=== PATIENT | female | born 2000 | race Caucasian/White ===

== ENCOUNTER 2022-05-05 15:56 | Outpatient (CLI) | payer BC, SELFPAY ==
[2022-05-05 20:27] LABS: Albumin* 5.3 g/dL (3.3-5.0); Chloride* 103 mmol/L (96-114); Sodium* 137 mmol/L (135-149)
[2022-05-05 20:29] LABS: Bilirubin Total* 0.6 mg/dL (0.1-1.5); Carbon Dioxide* 25 mmol/L (20-32); Creatinine* 0.8 mg/dL (0.6-1.2); Estimated Glomerular Filt Rate 108.78
[2022-05-05 20:30] LABS: Alanine Aminotransferase* 17 U/L (4-35); Alkaline Phosphatase* 61 U/L (40-150); Aspartate Amino Transferase* 24 U/L (12-35); Blood Urea Nitrogen* 8 mg/dL (5-24); Glucose* 98 mg/dL (60-115); Total Protein* 8.2 g/dL (6.0-8.3)
--- OUTSIDE RECORDS SUMMARY | 2022-06-02 10:06 | XMS_ITS | Encounter Summary ---
:2000 Author Organization [place] Address [address] [place] [address] Care Team Providers Name Role Phone Brown Sung PA-C Primary Care Provider [phone] Reason for Visit [facility] Physical Therapy (Routine) - Closed Specialty Diagnoses / Procedures Referred By Contact Refer red To Contact Physical Therapy Diagnoses R Hip, Groin area / [place] Slater DO @ [facility] Georgia Slater DO [place], Roderick, Procedures EXTREMITY INITIAL [facility] F[facility]IA T[place] [address] [facility] [address] [address] [facility] [place] [address] [place] [id number] Referral ID Status Reason Start Date Expiration Date Visits V isits Requested Authorized FOUZIA/BC/HIP/KEARA Closed 10/15/2017 10/24/2017 25 23 IN Encounter Details Date Type Department Care Team Description 10/15/2017 Therapy Visit [facility], Hip pain, rig Athletic Medicine Demetrio, PT (Primary Dx) Tin FOUZIA GARCIA [address] [place] [id number] [place] [id number] Social History Tobacco Use Types Packs/Day Years Used Date Never Smoker Smokeless Tobacco: Never Used Alcohol Use Standard Drinks/Week Comments No 0 (1 standard drink = 0.6 oz pure alcoho l) Sex Assigned at Date Recorded Not on file documented as of this encounter Progress Notes Demetrio Acevedo, PT - 10/15/2017 11:50 AM CST [facility] Evaluation Subjective: Patient is a 17 year old female presenting with rehab right hip hpi. The history is provided by the patient and the father. No spanish interpreter/translator was used. Nikkie Broussard is a 17 year old female with a right hip condition. Condition occurred with: A fall/slip (pt with R hip pain started about 1 month ago, groin pain started 2 weeks ago. Pain has progressed and now taking some time off. 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 pt reports no injury last year and [employer] training no issues). Condition occurred: during recreation/sport. This is a new condition Aug 2017 . Patient reports pain: Anterior, lateral and groin. Pain is described as aching and sharp and is intermittent and reported as 4/10 and 7/10. Associated symptoms: Loss of strength. Pain is the same all the time. Symptoms are exacerbated by standing, walking, ascending stairs, descending stairs, transfers and bending/squatting and relieved by rest, heat and NSAID's. Since onset symptoms are unchanged. Special tests: X-ray. General health as reported by patient is good. Pertinent medical history includes: None. Medical allergies: no. Other surgeries include: None reported. Current medications: None as r eported by the patient. 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 Barriers include: None as reported by the patient. Red flags: None as reported by the patient. Objective: Standing Alignment: Lumbar: Lordosis incr Hip Evaluation Hip PROM: Hip PROM: Left Hip: Normal Right Hip: Normal Pain: pain with R hip IR PROM Hip Strength: Flexion: Left: 5/5 Pain: Right: 5/5 Pain: Abduction: Left: 5-/5 Pain:Right: 4/5 + Pain: Internal Rotation: Left: 5-/5 Pain:Right: 4+/5 Pain: External Rotation: Left: 5-/5 Pain: Right: 4+/5 Pain: Knee Flexion: Right: 5/5 Pain: Hip Special Testing: Special tests hip not assessed: + pain R hip log roll. Left hip negative for the following special tests: Igor; Fadir/Labrum or SLR Right hip positive for the following special tests: Fadir/LabrumRight hip negative for the following special tests: Igor or SLR Functional Testing: not assessed General ROS Assessment/Plan: Patient is a 17 year old female with right side hip complaints. Patient has the following significant findings with corresponding treatment plan. Diagnosis 1: R hip pain, pain with FADIR, log roll possible ARLEEN Pain - hot/cold therapy, self management, education and home program Decreased strength - therapeutic exercise and therapeutic activities Impaired balance - neuro re-education and therapeutic activities Decreased proprioception - neuro re-education and therapeutic activities Inflammation - cold therapy Impaired gait - gait training Decreased function - therapeutic activities Therapy Evaluation Codes: 1) History comprised of: Personal factors that impact the plan of care: None. Comorbidity factors that impact the plan of care are: None. Medications impacting care: None. 2) Examination of Body Systems comprised of: Body structures and functions that impact the plan of care: Hip. Activity limitations that impact the plan of care are: Jumping, Lifting, Running, Sports, Squatting/kneeling, Standing and Walking. 3) Clinical presentation characteristics are: Stable/Uncomplicated. 4) Decision-Making Low complexity using standardized patient assessment instrument and/or measureable assessment of functional outcome. Cumulative Therapy Evaluation is: Low complexity. Previous and current functional limitations: (See Goal Flow Sheet for this information) Short term and intermission coordinator goals: (See Goal Flow Sheet for this information) Communication ability: Patient appears to be able to clearly communicate and understand verbal and written communication and follow directions correctly. Treatment Explanation - The following has been discussed with the patient: RX ordered/plan of care Anticipated outcomes Possible risks and side effects This patient would benefit from PT intervention to resume normal activities. Rehab potential is good. Frequency: 1 X week, once daily Duration: for 6-8 weeks Discharge Plan: Achieve all LTG. Independent in home treatment program. Reach maximal therapeutic benefit. Please refer to the daily flowsheet for treatment today, total treatment time and time spent performing 1:1 timed codes. H UNIT TREATER documented in this encounter Plan of Treatment Not on filedocumented as of this encounter Procedures Procedure Name Priority Date/Time Associated Diagnosis Comme nts [facility] NEUROMUSCULAR Routine 10/15/2017 2:15 PM Hip pain, right RE-EDUCATION BATCH UNIT TREATER [facility] THERAPEUTIC EXERCISES Routine 10/15/2017 2:15 PM Hip pain, right BATCH UNIT TREATER documented in this encounter Visit Diagnoses Diagnosis Hip pain, right - Primary Pain in joint, pelvic region and thigh documented in this encounter Care Teams Healthcare Facility Administrator Relationship Specialty Start Date End Date Brown Sung, PCP - General Physician Sand Mill Operator - 12/26/15 05/19/21 PA-C Medical documented as of this encounter
--- OUTSIDE RECORDS SUMMARY | 2022-06-02 10:06 | XMS_ITS | Encounter Summary ---
:2000 Author Organization [place] Address [address] [place] [address]. [place] [address] Care Team Providers Name Role Phone Brown Sung PA-C Primary Care Provider [phone] Reason for Referral [facility] Physical Therapy - Closed Specialty Diagnoses / Procedures Referred By Contact Refer red To Contact Diagnoses Groin strain, right, initial encounter Pain in joint involving right pelvic region and thigh [place] Slater DO [facility] [address] [place] [id number] [place] [address] [address] [address] [place] [address] Phone: [phone] Referral ID Status Reason Start Date Expiration Date Visits Requ ested Visits Authorized [id number] Closed 10/12/2017 10/12/2018 1 1 RITY BUSINESS ANALYST Reason for Visit Reason Comments Hip Pain Encounter Details Date Type Department Care Team Description 10/12/2017 Office Visit [facility] [place] Georgia Slater Pa in in joint involving right pelvic region and thigh (Primary Dx); Sports Medicine DO Groin strain, right, initial encounter; Clinic [facility] Strain of flexor muscle of r ight hip, initial encounter [id number] [facility] [address] [address] [place] [address] [place] [address] [place], [place] [address] (Wo rk) Social History Tobacco Use Types Packs/Day Years Used Date Never Smoker Smokeless Tobacco: Never Used Alcohol Use Standard Drinks/Week Comments No 0 (1 standard drink = 0.6 oz pure alcoho l) Sex Assigned at Date Recorded Not on file documented as of this encounter Last Filed Vital Signs Vital Sign Reading Time Taken Comments Blood Pressure 110/70 10/12/2017 12:02 PM SECURITY BUSINESS ANALYST Pulse - - Temperature - - Respiratory Rate - - Oxygen Saturation - - Inhaled Oxygen Concentration - - Weight 49.9 kg (110 lb) 10/12/2017 12:02 PM SECURITY BUSINESS ANALYST Height 162.6 cm (5' 4) 10/12/2017 12:02 PM SECURITY BUSINESS ANALYST Body Mass Index 18.88 10/12/2017 12:02 PM SECURITY BUSINESS ANALYST Body Mass Index Percentile 34.32 % 10/12/2017 12:[address] Growth Chart: [facility] (Girls, 2-20 Years) documented in this encounter Patient Instructions Patient InstructionsGeorgia Slater DO - 10/12/2017 12:00 PM CST 1. Pain in joint involving right pelvic region and thigh 2. Groin strain, right, initial encounter 3. Strain of flexor muscle of right hip, initial encounter Discussed exam - pain over hip flexors and groin Recommend at least 1-2 weeks off the ice Reviewed xray - no acute bony findings Physical therapy: [facility] - [phone] Follow up through [facility] after 2-3 PT sessions or sooner if needed. Call direct clinic number [[phone]] at any time with questions or concerns. RITY BUSINESS ANALYST documented in this encounter Progress Notes Georgia Slater DO - 10/12/2017 12:00 PM CST ASSESSMENT & PLAN 1. Pain in joint involving right pelvic region and thigh 2. Groin strain, right, initial encounter 3. Strain of flexor muscle of right hip, initial encounter Discussed exam - pain over hip flexors and groin Recommend at least 1-2 weeks off the ice Reviewed xray - no acute bony findings Physical therapy: [facility] - [phone] Follow up through [facility] after 2-3 PT sessions or sooner if needed. Call direct clinic number [[phone]] at any time with questions or concerns. ----- SUBJECTIVE Nikkie Broussard is a/an 17 year old female who is seen due to the [facility]. The patient is seen with their father. Onset: 2 month(s) ago in the right lateral hip and has spread into the right groin in the past couple weeks.. Reports insidious onset without acute precipitating event. 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 REVIEW OF SYSTEMS: 10 point ROS is negative other than symptoms noted above in HPI, Past Medical History or as stated below Constitutional: NEGATIVE for fever, chills, change in weight Skin: NEGATIVE for worrisome rashes, moles or lesions GI/: NEGATIVE for bowel or bladder changes Neuro: NEGATIVE for weakness, dizziness or paresthesias OBJECTIVE: BP 110/70 Ht 5' 4 (1.626 m) Wt 110 lb (49.9 kg) BMI 18.88 kg/m2 General: healthy, alert and in no distress HEENT: no scleral icterus or conjunctival erythema Skin: no suspicious lesions or rash. No jaundice. CV: no pedal edema Resp: normal respiratory effort without conversational dyspnea Psych: normal mood and affect Gait: normal steady gait with appropriate coordination and balance Neuro: Normal light sensory exam of lower extremity MSK: RIGHT HIP Inspection: No obvious deformity or asymmetry, level pelvis Palpation: Tender about the ASIS and rectus origin, adductor, pubic symphysis. Otherwise all other landmarks are nontender. Active Range of Motion: Flexion limited by pain, IR limited by pain, ER full Strength: Flexion 5/5, painful, adduction 5/5, painful, abduction 5/5, painful Special Tests: Positive: resisted testing of rectus, psoas and adductor. Mild discomfort with testing pubic symphysis aponeurosis Independent visualization of the below image: XR RIGHT HIP No bony avulsions off ASIS/AIIS. No CAM/pincer lesions No signs of osteitis pubis Final radiology read pending Patient's condition were thoroughly discussed during today's visit with greater than 50% of the visit spent counseling the patient with total time spent [id number] with the patient being 20 minutes. Georgia Slater DO [facility] RITY BUSINESS ANALYST documented in this encounter Plan of Treatment Scheduled Referrals Name Type Priority Associated Diagnoses Order S chedule F[facility] PT, HAND, AND Referral Routine Groin strain, right, Or dered: 10/12/2017 CHIROPRACTIC REFERRAL initial en counter Pain in joint involving right pelvic region and thigh documented as of this encounter Results XR Pelvis and Hip Right 2 Views (10/12/2017 12:34 PM SECURITY BUSINESS ANALYST) Anatomical Region Laterality Modality Abdomen/Pelvis Right Computed Radiography Specimen (Source) Anatomical Location Collection Method / Collectio n Time Received Time / Laterality Volume Impressions 10/12/2017 3:44 PM SECURITY BUSINESS ANALYST IMPRESSION: Negative exam. JACKELIN MONTEIRO MD Narrative 10/12/2017 3:44 PM SECURITY BUSINESS ANALYST XR PELVIS AND HIP RIGHT 2 VIEWS 10/12/2017 12:34 PM HISTORY: ; Pain in joint involving right pelvic region and thigh Procedure Note Izaiah Monteiro MD - 10/12/2017Formatt ing of this note might be different from the original. XR PELVIS AND HIP RIGHT 2 VIEWS 10/12/20 17 12:34 PM HISTORY: ; Pain in joint involving right pelvic region and thigh IMPRESSION: Negative exam. JACKELIN MONTEIRO MD Georgia Slater DO [facility] ORDER SUZI documented in this encounter Visit Diagnoses Diagnosis Pain in joint involving right pelvic reg ion and thigh - Primary Groin strain, right, initial encounter Strain of flexor muscle of right hip, in itial encounter Pain in joint involving right pelvic reg ion and thigh documented in this encounter Care Teams Branch Lead Relationship Specialty Start Date End Date Brown Sung, PCP - General Physician Apprentice Jockey - 12/26/15 05/19/21 PAJossC Medical documented as of this encounter
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
--- OUTSIDE RECORDS SUMMARY | 2022-06-02 10:06 | XMS_ITS | Encounter Summary ---
:2000 Author Organization [facility] Address [address] [place] [address] Care Team Providers Name Role Phone Brown Sung PA-C Primary Care Provider [phone] Encounter Details Date Type Department Care Team Description 02/15/2017 Radiant Appointment [facility] [place] Slater losed fracture of Sports and Marilu, DO radius Orthopedic Care [facility]TS [facility] [address] [place] [id number] Social History Tobacco Use Types Packs/Day Years Used Date Never Smoker Smokeless Tobacco: Never Used Alcohol Use Standard Drinks/Week Comments No 0 (1 standard drink = 0.6 oz pure alcoho l) Sex Assigned at Date Recorded Not on file documented as of this encounter Plan of Treatment Not on filedocumented as of this encounter Procedures Procedure Name Priority Date/Time Associated Diagnosis Comme nts XR WRIST RT G/E 3 Routine 02/15/2017 9:57 AM Closed fracture o f Results for this VW CDT radius procedure are i n the results section. documented in this encounter Results XR Wrist Right G/E 3 Views (02/15/2017 9:57 AM CDT) Anatomical Region Laterality Modality Right Wrist Right Computed Radiography Specimen (Source) Anatomical Location Collection Method / Collectio n Time Received Time / Laterality Volume Impressions 02/15/2017 10:10 AM CDT IMPRESSION: There has been no change in position or alignment of the previously seen nondisplaced fracture of the distal radial metaphysis. There has been increase in sclerosis adj acent to the fracture line consistent with early stages of healing. Solid bone bridging has not yet occurred. No other change or abnorma lity is noted. CHRISTOPHER ZARAGOZA MD Narrative 02/15/2017 10:10 AM CDT RIGHT WRIST THREE VIEWS ?? 02/15/2017 9:57 AM HISTORY: Fracture follow-up. COMPARISON: 02/01/2017. Procedure Note Christopher Zaragoza MD - 02/15/2017Fo rmatting of this note might be different from the original. RIGHT WRIST THREE VIEWS 02/15/2017 9:57 A M HISTORY: Fracture follow-up. COMPARISON: 02/01/2017. IMPRESSION: There has been no change in position or alignment of the previously seen nondisplaced fracture of the distal radial metaphysis. There has been increase in sclerosis adj acent to the fracture line consistent with early stages of healing. Solid bone bridging has not yet occurred. No other change or abnorma lity is noted. CHRISTOPHER ZARAGOZA MD [place] Slater DO [facility] SUZI documented in this encounter Visit Diagnoses Diagnosis Closed fracture of radius Closed fracture of unspecified part of r adius (alone) documented in this encounter Care Teams Nipple Threader Relationship Specialty Start Date End Date Brown Sung, PCP - General Physician Clarification Operator - 12/26/15 05/19/21 PA-C Medical documented as of this encounter
--- OUTSIDE RECORDS SUMMARY | 2022-06-02 10:06 | XMS_ITS | Encounter Summary ---
:2002 Author Organization [facility] Address [address] [place] [address] Care Team Providers Name Role Phone Brown Sung PA-C Primary Care Provider [phone] Reason for Visit Reason Comments RECHECK R distal radius fx Encounter Details Date Type Department Care Team Description 03/01/2017 Office Visit [facility] Carrillo Guerin Closed tra [facility] DO Wes nondisplaced [place] [address] metaphyseal torus [address] [place], [place] fracture of distal end [phone] [place] [address] routine healing [phone] (Primary Dx) Social History Tobacco Use Types Packs/Day Years Used Date Never Smoker Smokeless Tobacco: Never Used Alcohol Use Standard Drinks/Week Comments No 0 (1 standard drink = 0.6 oz pure alcoho l) Sex Assigned at Date Recorded Not on file documented as of this encounter Last Filed Vital Signs Vital Sign Reading Time Taken Comments Blood Pressure - - Pulse - - Temperature - - Respiratory Rate - - Oxygen Saturation - - Inhaled Oxygen Concentration - - Weight 49.9 kg (110 lb) 03/01/2017 9:51 AM CDT Height 160 cm (5' 3) 03/01/2017 9:51 AM CDT Body Mass Index 19.49 03/01/2017 9:51 AM CDT Body Mass Index Percentile 47.89 % 03/01/2017 9:51 AM CD T Growth Chart: [facility] (Girls, 2-20 Years) documented in this encounter Patient Instructions Patient InstructionsCarrillo Guerin DO - 03/01/2017 9:40 AM CDT We addressed the following today: 1. Right distal radius fracture Activity modification as discussed Topical Treatments: Ice Over the counter medication: Acetaminophen (Tylenol) 1000 mg every 6 hours with food (Maximum of 3000 mg/day) Other specific instructions: Discontinue short arm cast and begin use of EXOS brace with hockey/track and field activities for an additional 2-4 weeks for further treatment purposes Recommend 600-800 international units (IU)/day of vitamin D and 8286-4068 milligrams (mg)/day of calcium for improvement of bone health Call in 4 weeks if no improvement of symptoms for formal hand therapy referral Follow up as needed for further evaluation/medical care (sooner if needed; call direct clinic number[[phone]] at any time with questions or concerns) documented in this encounter Progress Notes Carrillo Guerin DO - 03/01/2017 9:40 AM CDT [facility] Visit s March 01, 2017 Subjective: Nikkie Broussard is a 16 year old female is seen today for follow up of a right distal radius fracture. Patient is accompanied in clinic today by her father. Injury occurred on 01/31/2017 (4 weeks ago). Lastvisit was on 02/15/2017. Has been in a short arm cast for treatment purposes. Returned to hockey and had a fall on her right wrist on 02/23/2017 and reported having 7/10 pain that lasted for about 1 day. Hasn't been back to hockey since that fall and reports having no pain in the wrist today (80% improved overall). Has not been using any oral pain medications consistently for improvement of symptoms. Symptoms are worse with nothing in particular. Denies any numbness/tingling/weakness of the right upper extremity. Patient's past medical, surgical, social, and family histories are reviewed today in the medical record Objective: Ht 5' 3 (1.6 m) Wt 110 lb (49.9 kg) BMI 19.49 kg/m2 General: Well-appearing and in no acute distress Skin: No evidence of skin breakdown, compromise, or ulceration NVS: Regional pulses normal. Normal sensation noted. No limitations noted on strength testing MSK: RIGHT WRIST Inspection: No swelling, bruising, discoloration, or obvious deformity or asymmetry Palpation: No tenderness over the distal radius or distal ulna Range of Motion: Flexion within normal limits and extension limited by tightness Strength: Magneto Electrician strength within normal limits, flexion within normal limits, and extension within normal limits Special Tests: Positive: None Negative: None Imaging: Previous films were reviewed today, independent visualization of images was performed, and results were discussed with the patient Right wrist x-rays (3 views) were ordered, independent visualization of images was performed, and interpreted in the office today Impression: 1. Continued nondisplaced fracture noted of the distal radial metaphysis with interval healing notedcompared to previous radiographs. 2. Negative for additional fracture, subluxation, joint space narrowing, or other acute osseous abnormalities. ASSESSMENT: 1. Right closed traumatic nondisplaced right distal radius PLAN: 1. 4 weeks out since initial injury, healing appropriately without complications. 2. Activity modification as discussed, including limitation of activities that cause pain/discomfort. Can return to hockey/track and field activities with use of EXOS brace for an additional 2-4 weeks for further treatment purposes. Remain out of physical education activities including golf/tennis activities for further treatment purposes. 3. Acetaminophen/ice as needed for improved pain control. 4. Recommended 600-800 international units (IU)/day of vitamin D and 6237-6812 milligrams (mg)/day of calcium for improvement of bone health. 5. Call in 4 weeks if no improvement of symptoms for formal hand therapy referral area 6. Follow up as needed for further evaluation/medical care. Instructed to return to clinic if noted to have increased redness, swelling, numbness, tingling, or weakness present. Patient's conditions were thoroughly discussed during today's visit with greater than 50% of the visit spent counseling the patient/father with total time spent [id number] with the patient/father being 15 minutes. Carrillo Guerin DO, YAN [facility] Disclaimer: This note consists of symbols derived from keyboarding, dictation and/or voice recognition software. As a result, there may be errors in the script that have gone undetected. Please consider this when interpreting information found in this chart. documented in this encounter Plan of Treatment Not on filedocumented as of this encounter Results XR Wrist Right G/E 3 Views (03/01/2017 10:01 AM CDT) Anatomical Region Laterality Modality Right Wrist Right Computed Radiography Specimen (Source) Anatomical Location Collection Method / Collectio n Time Received Time / Laterality Volume Narrative 03/01/2017 10:03 PM CDT Right wrist x-rays (3 views) Impression: 1. Continued nondisplaced fracture noted of the distal radial metaphysis with interval healing noted compared to previous radiographs. 2. Negative for additional fracture, sub luxation, joint space narrowing, or other acute osseous abnormalities. Carrillo Guerin DO [facility] ORDER SUZI documented in this encounter Visit Diagnoses Diagnosis Closed traumatic nondisplaced metaphysea l torus fracture of distal end of right radius with routine healing - Primary Closed torus fracture of distal end of r ight radius with routine healing, subsequent encounter documented in this encounter Care Teams Epic Stork Specialists Relationship Specialty Start Date End Date Brown Sung, PCP - General Physician Earthmoving Labourer - 12/26/15 05/19/21 PA-C Medical documented as of this encounter
--- OUTSIDE RECORDS SUMMARY | 2022-06-02 10:06 | XMS_ITS | Encounter Summary ---
:2002 Author Organization [facility] Address [address] [place] [address] Care Team Providers Name Role Phone Brown Sung PA-C Primary Care Provider [phone] Encounter Details Date Type Department Care Team Description 02/01/[address] [facility] [place] Slater ight wrist pain Sports and Marilu, DO Orthopedic Care FSOC [facility]TS [facility] [address] [place] [address] [id number] Social History Tobacco Use Types Packs/Day Years [...] nts XR WRIST RT G/E 3 Routine 02/01/2017 10:06 AM Right wrist pain Results for this VW CDT procedure are i n the results section. documented in this encounter Results XR Wrist Right G/E 3 Views (02/01/2017 10:06 AM CDT) Anatomical Region Laterality Modality Right Wrist Right Computed Radiography Specimen (Source) Anatomical Location Collection Method / Collectio n Time Received Time / Laterality Volume Impressions 02/01/2017 1:10 PM CDT IMPRESSION: Transverse distal metaphyseal nondisplaced fracture with dorsal impaction. This appears acute and , therefore, new or recurrent compared to 12/25/2015. JACKELIN MONTEIRO MD Narrative 02/01/2017 1:10 PM CDT RIGHT WRIST THREE OR MORE VIEWS 02/01/2017 10:06 AM HISTORY: Pain in right wrist. Procedure Note Izaiah Monteiro MD - 02/01/2017Formatt ing of this note might be different from the original. RIGHT WRIST THREE OR MORE VIEWS 7 10:06 AM HISTORY: Pain in right wrist. IMPRESSION: Transverse distal metaphysea l nondisplaced fracture with dorsal impaction. This appears acute and , therefore, new or recurrent compared to 12/25/2015. JACKELIN MONTEIRO MD [place] Slater DO [facility] ORDER SUZI documented in this encounter Visit Diagnoses Diagnosis Right wrist pain Pain in joint, forearm documented in this encounter Care Teams Machine Sole Leveler Relationship Specialty Start Date End Date Brown Sung, PCP - General Physician Collar Fuser - 12/26/15 05/19/21 PA-C Medical documented as of this encounter
--- OUTSIDE RECORDS SUMMARY | 2022-06-02 10:06 | XMS_ITS | Encounter Summary ---
:2002 Author Organization [facility] Address [address] [place] [address] Care Team Providers Name Role Phone Brown Sung PA-C Primary Care Provider [phone] Reason for Visit Reason Comments Musculoskeletal Problem Encounter Details Date Type Department Care Team Description 02/01/2017 Office Visit [facility] [place] Michel, Ut ght wrist pain (Primary Dx); Sports Medicine DO Other closed fracture of distal end of r ight radius, initial encounter Clinic [facility] [id number] [place] [address] SPORTS MED [address] [address] [place] [address] [facility] [address] [place], [place] [address] (Wo rk) Social History Tobacco Use Types Packs/Day Years Used Date Never Smoker Smokeless Tobacco: Never Used Alcohol Use Standard Drinks/Week Comments No 0 (1 standard drink = 0.6 oz pure alcoho l) Sex Assigned at Date Recorded Not on file documented as of this encounter Last Filed Vital Signs Vital Sign Reading Time Taken Comments Blood Pressure 118/80 02/01/2017 9:42 AM CDT Pulse - - Temperature - - Respiratory Rate - - Oxygen Saturation - - Inhaled Oxygen Concentration - - Weight 49.9 kg (110 lb) 02/01/2017 9:42 AM CDT Height 160 cm (5' 3) 02/01/2017 9:42 AM CDT Body Mass Index 19.49 02/01/2017 9:42 AM CDT Body Mass Index Percentile 48.49 % 02/01/2017 9:42 AM CD T Growth Chart: [facility] (Girls, 2-20 Years) documented in this encounter Patient Instructions Patient InstructionsAlexandriaHemante - 02/01/2017 9:40 AM CDT Thank you for allowing us to participate in your care today. Please find below your visit diagnosis and the plan going forward. 1. Right wrist pain 2. Other closed fracture of distal end of right radius, initial encounter Activity modification as discussed Other specific instructions: - exos splint applied - letters for school, track, gym Follow up in 2 weeks for repeat xrays or sooner if needed. Call direct clinic number [[phone]] at any time with questions or concerns. [place] [facility] Website: [email or web address] Twitter: [email or web address] documented in this encounter Progress Notes [place] Slater DO - 02/01/2017 9:40 AM CDT ASSESSMENT & PLAN ICD-10-CM 1. Right wrist pain M25.531 Naproxen Sodium (ALEVE PO) XR Wrist Right G/E 3 Views order for DME order for DME order for DME 2. Other closed fracture of distal end of right radius, initial encounter S52.591A Naproxen Sodium (ALEVE PO) XR Wrist Right G/E 3 Views order for DME order for DME order for DME Reviewed xrays which shows distal radius fracture in the same location as previously Would recommend non-surgical management Discussed that surgical fixation would confer no better outcome Letters provided for gym, track and hockey. No activity x 2 weeks Placed in EXOS cast. Can return sooner if need to re-mold as swelling subsides. Follow up in 2 weeks for repeat xrays or sooner if needed. Call direct clinic number [[phone]] at any time with questions or concerns. Instructed to call the office if the condition evolves or worsens. ----- SUBJECTIVE Nikkie Broussard is a/an 16 year old right hand dominant female who is seen as self referral for evaluation of right radial wrist pain. The patient is seen with their father. Onset: 01/31/17. Patient describes injury as she was playing hockey. She does not recall an exact injury, but she does recall battling for the puck and then having pain in the wrist. Was not able to keepplaying. Worsened by: rotation Better with: immobilization Quality: dull at rest, sharp with movement Pain Scale (maximum/current)/10: 8/10 / 6/10 Treatments tried: ice and Aleve Orthopedic history: YES - Date: 10/2015 - right distal radius and ulnar styloid fracture Relevant surgical history: NO Patient Social History: School [employer], 8th grade Patient's past medical, surgical, social, and family [...] for weakness, dizziness or paresthesias OBJECTIVE: BP 118/80 Ht 5' 3 (1.6 m) Wt 110 lb (49.9 kg) BMI 19.49 kg/m2 General: healthy, alert and in no distress HEENT: no scleral icterus or conjunctival erythema Skin: no suspicious lesions or rash. No jaundice. CV: regular rhythm by palpation, brisk cap refill Resp: normal respiratory effort without conversational dyspnea Psych: normal mood and affect Gait: normal steady gait with appropriate coordination and balance Neuro: Normal sensory exam of bilateral hands. Motor strength as noted below MSK: RIGHT WRIST Inspection: Trace swelling over distal radius Palpation: Tender about the distal radius and distal ulna. Remainder of bony and ligamentous line wilhelm are nontender. Range of Motion: Limited 2/2 pain Strength: Not accessed Independent visualization of the below image: XR RIGHT WRIST Transverse fracture of the distal radius, nondisplaced. Final radiology read pending Patient's conditions were thoroughly discussed during today's visit with greater than 50% of the visit spent counseling the patient with total time spent [id number] with the patient being 25 minutes. [place] Slater DO [facility] documented in this encounter Nursing Notes Michael Ibrahim - 02/01/2017 9:40 AM CDT Chief Complaint Patient presents with ??? Musculoskeletal Problem Initial BP 118/80 Ht 5' 3 (1.6 m) Wt 110 lb (49.9 kg) BMI 19.49 kg/m2 Estimated body mass index is 19.49 kg/(m^2) as calculated from the following: Height as of this encounter: 5' 3 (1.6 m). Weight as of this encounter: 110 lb (49.9 kg). Medication Reconciliation: complete Michael Ibrahim ATC documented in this encounter Plan of Treatment [...] 12/25/2015. JACKELIN MONTEIRO MD [place] Slater DO [facility] DI[facility]NOSTIC IMAGING ORDER SUZI documented in this encounter Visit Diagnoses Diagnosis Right wrist pain - Primary Pain in joint, forearm Other closed fracture of distal end of r ight radius, initial encounter Right wrist pain Pain in joint, forearm documented in this encounter Care Teams Wrapper Sorter Relationship Specialty Start Date End Date Brown Sung, PCP - General Physician Clinical Specialist Medical Device - 12/26/15 05/19/21 PA-C Medical documented as of this encounter
--- OUTSIDE RECORDS SUMMARY | 2022-06-02 10:06 | XMS_ITS | Encounter Summary ---
:2002 Author Organization [facility] Address [address] [place] [address]. [place] [address] Care Team Providers Name Role Phone Brown Sung PA-C Primary Care Provider [phone] Reason for Visit Reason Comments Hip Pain f/u R hip pain, Slater patie nt Encounter Details Date Type Department Care Team Description 10/16[facility] [facility]ara n, right Sports [facility] MD Fer (Primary Dx) [address] [address] [address] [place], [place] [id number] [place] [address] Social History Tobacco Use Types Packs/Day Years Used Date Never Smoker Smokeless Tobacco: Never Used Alcohol Use Standard Drinks/Week Comments No 0 (1 standard drink = 0.6 oz pure alcoho l) Sex Assigned at Date Recorded Not on file documented as of this encounter Last Filed Vital Signs Vital Sign Reading Time Taken Comments Blood Pressure 111/68 10/16/2017 9:46 AM MURAL PAINTER Pulse - - Temperature - - Respiratory Rate - - Oxygen Saturation - - Inhaled Oxygen Concentration - - Weight 50.3 kg (111 lb) 10/16/2017 9:46 AM MURAL PAINTER Height 162.6 cm (5' 4) 10/16/2017 9:46 AM MURAL PAINTER Body Mass Index 19.05 10/16/2017 9:46 AM MURAL PAINTER Body Mass Index Percentile 36.71 % 10/16/2017 9:46 AM CS T Growth Chart: [facility] (Girls, 2-20 Years) documented in this encounter Progress Notes Alexsander Fritz MD - 10/16/2017 9:40 AM CST [facility] Follow-up Visit s Oct 16, 2017 PCP: Brown Sung Subjective: Nikkie is a 17 year old female who is seen in follow up for evaluation of Chief Complaint Patient presents with ??? Hip Pain f/u R hip pain, Slater patient Her last visit was on 10/12/2017. Since that time, symptoms have been greatly improved. Nikkie Broussardis accompanied today by mother. Has been out of hockey for about 10 days. Patient reports 60% improvement since last visit. Patient has noticed improved. symptoms with physical therapy and rest treatment. Pain is located right anterior hip/ASIS, intermittent and is worse with prolonged standing and running. Patient is following up for possible clearance back to hockey. Notes groin strain treated by ATC 10 days ago treated with hip spica, but has had anterior hip pain before that. groin pain is better. Patient denies any new injuries. Patient's past medical, surgical, social and family histories are reviewed today. ----- SUBJECTIVE Nikkie Broussard is a/an 17 year old female who is seen due to the direction of their ATC [facility] for evaluation of right hip/groin pain. The [...] Relevant surgical history: NO Patient Social History: [employer], 9th grade- hockey Past Medical History: Diagnosis Date ??? Childhood asthma Patient Active Problem List Diagnosis Date Noted ??? Hip pain, right 10/15/2017 Priority: Medium ??? Closed nondisplaced fracture of styloid process of right ulna 11/19/2015 Priority: Medium ??? Closed traumatic nondisplaced metaphyseal torus fracture of distal end of right radius 11/19/2015 Priority: Medium ??? Childhood asthma Priority: Medium Family History Problem Relation Age of Onset ??? Family History Negative Mother ??? Family History Negative Father ??? Family History Negative Sister 1 ??? Family History Negative Brother 1 ??? C.A.D. No family hx of ??? DIABETES No family hx of ??? CEREBROVASCULAR DISEASE No family hx of Social History Social History ??? Marital status: Single Spouse name: N/A ??? Number of children: N/A ??? Years of education: N/A Social History Main Topics ??? Smoking status: Never Smoker ??? Smokeless tobacco: Never Used ??? Alcohol use No PAST SURGICAL HISTORY No surgeries reported. REVIEW OF SYSTEMS: 10 point ROS is negative other than symptoms noted above in HPI, Past Medical History or as stated below Constitutional: NEGATIVE for fever, chills, change in weight Skin: NEGATIVE for worrisome rashes, moles or lesions GI/: NEGATIVE for bowel or bladder changes Neuro: NEGATIVE for weakness, dizziness or paresthesias OBJECTIVE: BP 111/68 Ht 5' 4 (1.626 m) Wt 111 lb (50.3 kg) BMI 19.05 kg/m2 Constitutional:well-developed, well-nourished, and in no distress. Cardiovascular: Intact distal pulses. Neurological: alert. Gait Normal: Gait, station, stance, and balance appear normal for age Skin: Skin is warm and dry. Psychiatric: Mood and affect normal. Respiratory: unlabored, speaks in full sentences Lymph: no LAD, no lymphangitis Mild pain with hopping on RIGHT MSK: RIGHT HIP Inspection: No obvious deformity or asymmetry, level pelvis Palpation: nontender about the ASIS and rectus origin, adductor, pubic symphysis. Otherwise all other landmarks are nontender. Active Range of Motion: Flexion full, with mild pain, IR full with slight pain, ER full Strength: Flexion 5/5, painful, adduction 5/5, painful, abduction 5/5, painful Special Tests: Positive: resisted testing of rectus, psoas and adductor. Mild discomfort with testing pubic symphysis aponeurosis Independent visualization of the below image: On review today, I think there may be some thickengin of anterior superior RIGHT femoral head-neck junction, mild. ASSESSMENT/PLAN ICD-10-CM 1. Hip pain, right M25.551 Symptoms improved after 10 days of rest. Cannot exclude ARLEEN. Doubt stress fx, AVN. Ok to return to hockey as tolerated. If recurrent, consider MRI for ARLEEN. Agrees to continue PHYSICAL THERAPY for now. L PAINTER documented in this encounter Plan of Treatment Not on filedocumented as of this encounter Visit Diagnoses Diagnosis Hip pain, right - Primary Pain in joint, pelvic region and thigh documented in this encounter Care Teams Fashion Model Relationship Specialty Start Date End Date Brown Sung, PCP - General Physician Brazing Machine Operator Helper - 12/26/15 05/19/21 PA-C Medical documented as of this encounter
--- OUTSIDE RECORDS SUMMARY | 2022-06-02 10:06 | XMS_ITS | Encounter Summary ---
:2002 Author Organization [facility] Address [address] [place] [address] Care Team Providers Name Role Phone Unavailable Primary Care Provider Unavailable Encounter Details Date Type Department Care Team Description 11/25/2015 Radiant Appointment [facility] Carrillo Guerin wrist Sports and DO Wes fracture, with Orthopedic Care 2199 routine heal [facility] subsequent encounter [address] [place], [place] [phone] [place] [address] Social History Tobacco Use Types [...] nts XR WRIST RT G/E 3 Routine 11/25/2015 9:54 AM Right wrist Resu lts for this VW MARKETING ANALYTICS SPECIALIST fracture, with procedure are in routine healing, the results subsequent encounter section . documented in this encounter Results XR Wrist Right G/E 3 Views (11/25/2015 9:54 AM MARKETING ANALYTICS SPECIALIST) Anatomical Region Laterality Modality Right Wrist Right Computed Radiography Specimen (Source) Anatomical Location Collection Method / Collectio n Time Received Time / Laterality Volume Impressions 11/25/2015 11:07 AM MARKETING ANALYTICS SPECIALIST wrist x-rays (3 views, AP/lateral/oblique) Impression: 1. Nondisplaced transverse metaphyseal/b uckle fracture of the distal radius with minimal dorsal displacement of the distal fragment, unchanged compared to previous radiographs. 2. Nondisplaced transverse fracture of t he ulnar styloid, unchanged compared to previous radiographs. 3. Improved soft tissue swelling noted o f the volar wrist/forearm region compared to previous radiographs. 4. Negative for subluxation, joint space narrowing, or other acute osseous abnormalities. Narrative 11/25/2015 11:07 AM MARKETING ANALYTICS SPECIALIST Right Carrillo Guerin DO IMG DIAGNOSTIC IMAGING ORDER SUZI documented in this encounter Visit Diagnoses Diagnosis Right wrist fracture, with routine heali ng, subsequent encounter documented in this encounter
--- OUTSIDE RECORDS SUMMARY | 2022-06-02 10:06 | XMS_ITS | Encounter Summary ---
:2002 Author Organization [facility] Address [address] [place] [address] Care Team Providers Name Role Phone Unavailable Primary Care Provider Unavailable Encounter Details Date Type Department Care Team Description 11/18/2015 Radiant Appointment [facility] Carrillo Guerin ht wrist injury, Sports and Wes, initial encounter Orthopedic Care [address] [phone] [place] [address] Social History Tobacco Use Types [...] nts XR WRIST RT G/E 3 Routine 11/18/2015 9:38 AM Right wrist injur y, Results for this VW MORTGAGE SALES MANAGER initial encounter procedure are in the results section. documented in this encounter Results XR Wrist Right G/E 3 Views (11/18/2015 9:38 AM MORTGAGE SALES MANAGER) Anatomical Region Laterality Modality Right Wrist Right Computed Radiography Specimen (Source) Anatomical Location Collection Method / Collectio n Time Received Time / Laterality Volume Impressions 11/19/2015 10:02 AM MORTGAGE SALES MANAGER wrist x-rays (3 views, AP/lateral/oblique) Impression: 1. Nondisplaced transverse metaphyseal/b uckle fracture of the distal radius with minimal dorsal displacement of the distal fragment. 2. Nondisplaced transverse fracture of t he ulnar styloid. 3. Soft tissue swelling noted of the vol ar wrist/forearm region. 4. Negative for subluxation, joint space narrowing, or other acute osseous abnormalities. Narrative 11/19/2015 10:02 AM MORTGAGE SALES MANAGER Right Carrillo Guerin DO IMG DIAGNOSTIC IMAGING ORDER SUZI documented in this encounter Visit Diagnoses Diagnosis Right wrist injury, initial encounter documented in this encounter
--- OUTSIDE RECORDS SUMMARY | 2022-06-02 10:06 | XMS_ITS | Encounter Summary ---
:2002 Author Organization [facility] Address [address] [place] [address] Care Team Providers Name Role Phone Brown Sung PA-C Primary Care Provider [phone] Encounter Details Date Type Department Care Team Description 03/01/2017 Radiant Appointment [facility] Carrillo Guerin sed torus Sports and Wes, fracture of distal Orthopedic Care [address] end of right radius [facility] with routine [address] [place], [place] healing, subsequent [phone] encounter [place], [place] [id number] Social History Tobacco Use Types Packs/Day Years [...] nts XR WRIST RT G/E 3 Routine 03/01/2017 10:01 AM Closed torus Res ults for this VW CDT fracture of distal procedure are in end of right radius the resu lts with routine section. healing, subsequent encounter documented in this encounter Results XR [...] in this encounter Visit Diagnoses Diagnosis Closed torus fracture of distal end of r ight radius with routine healing, subsequent encounter documented in this encounter Care Teams Dimension Stone Quarry Supervisor Relationship Specialty Start Date End Date Brown Sung, PCP - General Physician Wind Turbine Performance Engineer - 12/26/15 05/19/21 PA-C Medical documented as of this encounter
--- OUTSIDE RECORDS SUMMARY | 2022-06-02 10:06 | XMS_ITS | Encounter Summary ---
:2002 Author Organization [facility] Address [address] [place] [address] Care Team Providers Name Role Phone Brown Sung PA-C Primary Care Provider [phone] Reason for Visit Reason Comments RECHECK right wrist fracture Encounter Details Date Type Department Care Team Description 12/25/[address] [facility] Carrillo Guerin Closed tra umatic nondisplaced metaphyseal torus fracture of distal end of right radius (Primary Dx); Sports Medicine Clinic DO Wes Closed nondisplaced fracture of styloid process of right ulna with routine healing, subsequent encounter [place] [phone] [place] [address] Social History Tobacco Use Types [...] - - Temperature - - Respiratory Rate 12 12/25/2015 3:10 PM QUALIFICATIONS EXAMINER Oxygen Saturation - - Inhaled Oxygen Concentration - - Weight 39.5 kg (87 lb) 12/25/2015 3:10 PM QUALIFICATIONS EXAMINER Height 154.9 cm (5' 1) 12/25/2015 3:10 PM QUALIFICATIONS EXAMINER Body Mass Index 16.44 12/25/2015 3:10 PM QUALIFICATIONS EXAMINER Body Mass Index Percentile 14.08 % 12/25/2015 3:10 PM CS T Growth Chart: [facility] (Girls, 2-20 Years) documented in this encounter Patient Instructions Patient InstructionsNataleeDaniel borja - 12/25/2015 3:43 PM CST We addressed the following today: 1. Closed traumatic nondisplaced transverse/buckle fracture of the right distal radius 2. Closed traumatic nondisplaced transverse fracture of the right ulnar styloid Activity modification as discussed Over the counter medication: Acetaminophen (Tylenol) Other specific instructions: Initiate wrist brace immobilization with physical activities for further treatment purposes for 2 weeks Call if interested in referral to hand therapy for further treatment purposes Follow up as needed for further evaluation/medical care. Instructed to return to clinic if noted to have increased redness, swelling, numbness, tingling, or weakness present. (sooner if needed; call direct clinic number [[phone]] at any time with questions or concerns) IFICATIONS EXAMINER documented in this encounter Progress Notes Carrillo Guerin DO - 12/25/2015 3:07 PM CST [facility] Clinic Visit s Dec 25, 2015 Subjective: Nikkie Broussard is a 15 year old female who is seen today for follow up of closed traumatic nondisplaced transverse/buckle fracture of the right distal radius and closed traumatic nondisplaced transverse fracture of the right ulnar styloid. Injury occurred on 11/16/2015 (5.5 weeks ago). Patient is accompanied in clinic today by her father. Last visit was on 12/10/2015. Has been in a short arm cast for treatment purposes. Notes 75% overall improvement of symptoms since initial injury. Has not been using any oral pain medications for improvement of pain/discomfort. Has continued with hockey activities since last clinical visit. Denies any right wrist pain presently. Symptoms are worse with twisting movements. Notes minimal weakness of the right upper extremity. Denies any numbness/tingling of the right upper extremity. Deniesany falls/trauma since last clinical visit. Patient's past medical, surgical, social, and family histories are reviewed today in the medical record Objective: Resp 12 Ht 5' 1 (1.549 m) Wt 87 lb (39.463 kg) BMI 16.45 kg/m2 General: Well-appearing and in no acute distress Skin: No evidence of skin breakdown, compromise, or ulceration NVS: Regional pulses normal. Capillary refill less than 2 seconds. Normal sensation noted. No limitations noted on strength testing MSK: RIGHT WRIST Inspection: No erythema, ecchymosis, or swelling present Palpation: No tenderness over the distal radius, distal ulna, scaphoid, lunate, triquetrum, pisiform, trapezium, trapezoid, capitate, hamate, 1st-5th metacarpals or MCP, DIP, or PIP joints of the fingers Range of Motion: Finger rotation normal without malrotation Elbow supination/pronation - limited by tightness Elbow flexion/extension - limited by tightness Strength: Wrist flexion/extension - 5/5 Finger flexion - 5/5 Special Tests: None Imaging: Previous films were reviewed today and results were discussed with the patient/father Right wrist x-rays (3 views, AP/lateral/oblique) were ordered and interpreted in the office today Impression: 1. Nondisplaced transverse metaphyseal/buckle fracture of the distal radius with minimal dorsal displacement of the distal fragment with interval healing noted compared to previous radiographs. 2. Nondisplaced transverse fracture of the ulnar styloid, unchanged compared to previous radiographs. 3. Negative for subluxation, joint space narrowing, or other acute osseous abnormalities. ASSESSMENT: 1. Closed traumatic nondisplaced transverse/buckle fracture of the right distal radius 2. Closed traumatic nondisplaced transverse fracture of the right ulnar styloid PLAN: 1. 5.5 weeks out since initial injury, healing appropriately without complications. 2. Acetaminophen as needed for improved pain control. 3. Activity modification as discussed, including limitation of activities that cause pain/discomfort. Instructed that can continue with hockey/physical activities as tolerated. 4. Discontinue short arm cast immobilization and begin use of wrist brace with physical/hockey activities for further treatment purposes for 2 weeks. 5. Call if interested in referral to hand therapy for further treatment purposes. 6. Follow-up as needed for further evaluation/medical care. Instructed to return to clinic if noted to have increased redness, swelling, numbness, tingling, or weakness present. Patient's conditions were thoroughly discussed during today's visit with greater than 50% of the visit spent counseling the patient/father with total time spent [id number] with the patient/father being 15 minutes. Carrillo Guerin DO, [facility] Disclaimer: This note [...] behalf by Daniel Garcia, a trained medical equipment repair technician. The creationof this record is based on the provider's personal observations and the statements of the patient. This document has been checked and approved by the attending provider. Daniel Garcia 3:36 PM December 25, 2015 IFICATIONS EXAMINER documented in this encounter Nursing Notes Ambrocio Shah ATC - 12/25/2015 3:55 PM CST Chief Complaint Patient presents with ??? RECHECK right wrist fracture Initial Resp 12 Ht 5' 1 (1.549 m) Wt 87 lb (39.463 kg) BMI 16.45 kg/m2 Estimated body mass index is 16.45 kg/(m^2) as calculated from the following: Height as of this encounter: 5' 1 (1.549 m). Weight as of this encounter: 87 lb (39.463 kg). BP completed using cuff size: regular Ambrocio Shah ATC/R IFICATIONS EXAMINER documented in this encounter Plan of Treatment Not on filedocumented as of this encounter Results XR Wrist Right G/E 3 Views (12/25/2015 3:25 PM QUALIFICATIONS EXAMINER) Anatomical Region Laterality Modality Right Wrist Right Computed Radiography Specimen (Source) Anatomical Location Collection Method / Collectio n Time Received Time / Laterality Volume Impressions 12/26/2015 8:13 AM QUALIFICATIONS EXAMINER wrist x-rays (3 views, AP/lateral/oblique) Impression: 1. Nondisplaced transverse metaphyseal/b uckle fracture of the distal radius with minimal dorsal displacement of the distal fragment with interval healing noted compared to previ ous radiographs. 2. Nondisplaced transverse fracture of t he ulnar styloid, unchanged compared to previous radiographs. 3. Negative for subluxation, joint space narrowing, or other acute osseous abnormalities. Narrative 12/26/2015 8:13 AM QUALIFICATIONS EXAMINER Right Carrillo Wes Guerin DO IMG DIAGNOSTIC IMAGING ORDER SUZI documented in this encounter Visit Diagnoses Diagnosis Closed traumatic nondisplaced metaphysea l torus fracture of distal end of right radius - Primary Closed nondisplaced fracture of styloid process of right ulna with routine healing, subsequent encounter Radius fracture Closed fracture of unspecified part of r adius (alone) Ulna fracture Closed fracture of unspecified part of u sprayer auto parts (alone) documented in this encounter Care Teams Gatehouse Attendant Relationship Specialty Start Date End Date Brown Sung, PCP - General Physician Insurance Agents Supervisor - 12/26/15 05/19/21 PAJossC Medical documented as of this encounter
--- OUTSIDE RECORDS SUMMARY | 2022-06-02 10:06 | XMS_ITS | Encounter Summary ---
:2002 Author Organization [facility] Address [address] [place] [address] Care Team Providers Name Role Phone Unavailable Primary Care Provider Unavailable Reason for Visit Reason Comments Cast Problem broken cast through the hand Encounter Details Date Type Department Care Team Description 12/04/2015 Office Visit [facility] [place], [place] Michel, Sin osed nondisplaced fracture of styloid process of right ulna with routine healing, subsequent encounter (Primary Dx); Sports Medicine DO Closed traumatic nondisplaced metaphysea l torus fracture of distal end of right radius Clinic [facility] [id number] [place] [address] [facility] [address] [address] [place] [address] [facility] [address] [place], [place] [address] (Wo rk) Social History Tobacco Use Types Packs/Day Years Used Date Never Smoker Smokeless Tobacco: Never Used Alcohol Use Standard Drinks/Week Comments No 0 (1 standard drink = 0.6 oz pure alcoho l) Sex Assigned at Date Recorded Not on file documented as of this encounter Progress Notes Juan Llanos - 12/04/2015 10:50 AM CST Cast change- broken through the hand of the cast happened on 12/02/15. Denies any fall or additional injury. She states that she was picking at the cast which caused it to break. Denies any pain or concerns with the fracture healing. Juan Llanos ATC ER SOCK LININGS documented in this encounter Nursing Notes Juan Llanos - 12/04/2015 11:17 AM CST Chief Complaint Patient presents with ??? Cast Problem broken cast through the hand Initial There were no vitals taken for this visit. Estimated body mass index is 16.45 kg/(m^2) as calculated from the following: Height as of 11/25/15: 5' 1 (1.549 m). Weight as of 11/25/15: 87 lb (39.463 kg). BP completed using cuff size: NA (Not Taken) Juan Llanos ATC ER SOCK LININGS documented in this encounter Miscellaneous Notes Addendum Note - Juan Llanos - 12/04/2015 11:18 AM SKIVER SOCK LININGS Addended by: JUAN LLANOS on: 12/04/2015 11:18 AM Modules accepted: Orders, SmartSet ER SOCK LININGS documented in this encounter Plan of Treatment Not on filedocumented as of this encounter Procedures Procedure Name Priority Date/Time Associated Diagnosis Comme nts HC APPLY SHORT ARM Routine 12/04/2015 11:18 AM Closed nondispl aced CAST SKIVER SOCK LININGS fracture of styloid process of right ulna with routine healing, subsequent encou nter Closed traumatic nondisplaced metaphyseal torus fracture of distal end of right radius documented in this encounter Visit Diagnoses Diagnosis Closed nondisplaced fracture of styloid process of right ulna with routine healing, subsequent encounter - Primary Closed traumatic nondisplaced metaphysea l torus fracture of distal end of right radius documented in this encounter
--- OUTSIDE RECORDS SUMMARY | 2022-06-02 10:06 | XMS_ITS | Encounter Summary ---
:2002 Author Organization [facility] Address [address] [place] [address] Care Team Providers Name Role Phone Renetta Kramer MD Primary Care Provider Encounter Details Date Type Department Care Team Description [address] [facility] Carol Kramer MD [address] [phone] [place] [address] (Wo rk) Social History Tobacco Use Types [...] Procedure Name Priority Date/Time Associated Diagnosis Comme [facility] SPIROMETRY, BREATH Routine 2012 Result s for this CAPACITY procedure are i n the results section . documented in this encounter Results Spirometry, Breathing Capacity (2012) P athologist Signature FEV-1 1.58 FVC 1.71 FEV1/FVC 93 FEF 25/75 2.59 Narrative This result has an attachment that is no t available. Renetta Kramer MD PROCEDURES documented in this encounter Visit Diagnoses Not on filedocumented in this encounter Care Teams Agent Ticketing Gate Relationship Specialty Start Date End Date Renetta Kramer MD PCP - General Family Practice 04/21/12 06/10/[address] [address] documented as of this encounter
--- OUTSIDE RECORDS SUMMARY | 2022-06-02 10:06 | XMS_ITS | Encounter Summary ---
:2000 Author Organization [facility] Address [address] [place] [id number] Care Team Providers Name Role Phone Renetta Kramer MD Primary Care Provider Reason for Visit Reason Comments Pharyngitis sore throat, BREWSTER, slight fati charles x 2 days Encounter Details Date Type Department Care Team Description 09/26/2012 Office Visit [facility] Renetta Kramer MD Pharyngitis (Primary Clinic [facility] Dx) [phone] [address] Social History Tobacco Use Types Packs/Day Years Used Date Never Smoker Smokeless Tobacco: Never Used Alcohol Use Standard Drinks/Week Comments No 0 (1 standard drink = 0.6 oz pure alcoho l) Sex Assigned at Date Recorded Not on file documented as of this encounter Last Filed Vital Signs Vital Sign Reading Time Taken Comments Blood Pressure 78/56 09/26/2012 11:10 AM [employer] OFFICER Pulse 88 09/26/2012 11:10 AM [employer] OFFICER Temperature 36.4 ??C (97.6 ??F) 09/26/2012 11:10 AM [employer] OFFICER Respiratory Rate - - Oxygen Saturation 98% 09/26/2012 11:10 AM [employer] OFFICER Inhaled Oxygen Concentration - - Weight 31.8 kg (70 lb 1.6 oz) 09/26/2012 11:10 AM [employer] OFFICER Height 137.2 cm (4' 6) 09/26/2012 11:10 AM [employer] OFFICER Body Mass Index 16.9 09/26/2012 11:10 AM [employer] OFFICER Body Mass Index Percentile 49.95 % 09/26/2012 11:[address] Growth Chart: [facility] (Girls, 2-20 Years) documented in this encounter Patient Instructions Patient InstructionsWRenetta mccauley MD - 09/26/2012 11:39 AM CST We did strep testing for you today Strep culture is pending Use antibiotics as given due to strep exposure in close contact Follow up if no improvement and/or still having problems and/or any worsening Thanks Renetta Kramer MD D HEALTH OFFICER documented in this encounter Progress Notes Renetta Kramer MD - 09/26/2012 11:19 AM CST SUBJECTIVE: This is a 12 year old female with dad- CC:sore throat, headache, no nasal issues No ear issues No cough, no sob, no wheezing, no fevers, no chills No gi or gu issues This is going since yesterday Strep exposure in mom currently Father who is here with the patient today-reported patient had history of strep in the past in a similar way with no fevers, and there has been history of strep going around the family members in the past [facility] otherwise neg Current Outpatient Prescriptions Medication Sig ??? fluticasone (FLOVENT HFA) 44 MCG/ACT inhaler Inhale 1 puff into the lungs 2 times daily. 2 puffs ??? albuterol (PROAIR HFA) 108 (90 BASE) MCG/ACT inhaler Inhale 2 puffs into the lungs 4 times dailyas needed for shortness of breath / dyspnea. ??? mometasone furoate (ASMANEX 30 METERED DOSES) 110 MCG/INH AEPB Inhale 1 puff into the lungs daily. ??? albuterol (2.5 MG/3ML) 0.083% nebulizer solution Take 3 mLs by nebulization every 6 hours as needed for shortness of breath / dyspnea. No Known Allergies History reviewed. No pertinent past medical history. History reviewed. No pertinent past surgical history. [facility] otherwise rest is negative OBJECTIVE: Filed Vitals: 09/26/12 1110 BP: 78/56 Pulse: 88 Temp: 97.6 ??F (36.4 ??C) TempSrc: Oral Height: 4' 6 (1.372 m) Weight: 70 lb 1.6 oz (31.797 kg) SpO2: 98% EXAM: Constitutional: healthy, alert and no distress Cardiovascular: negative, PMI normal. No lifts, heaves, or thrills. RRR. No murmurs, clicks gallops or rub Respiratory: negative, Percussion normal. Good diaphragmatic excursion. Lungs clear Neck: Neck supple. No adenopathy. , ENT: Bilateral TM and ear canal exam normal, nose with mild congestion , throat with trace erythema no exudate noted , mildly prominent anterior cervical neck nodes ,no sinus tenderness Abdomen: Abdomen soft, non-tender. BS normal. No masses, organomegaly ASSESSMENT: This is a 12 year old female with Pharyngitis (primary encounter diagnosis) Comment: Plan: Strep, Rapid Screen, Beta strep group A culture, amoxicillin (AMOXIL) 250 MG/5ML suspension We discussed possibly viral process However father is convinced that usually her strep comes out this way and history of this in the past- With her known contact of strep in the family members-rather use Antibiotics Following that, antibiotics was given We also reviewed today-it is possible that we may be treating viral illness with antibiotics possible risk and benefits associated with reviewed with father Follow up as noted in avs or sooner if no improvement and/or still having problems and/or any worsening Recommend HCM if not uptodate. Renetta Kramer MD Patient Instructions We did strep testing for you today Strep culture is pending Use antibiotics as given due to strep exposure in close contact Follow up if no improvement and/or still having problems and/or any worsening Thanks Renetta Kramer MD D HEALTH OFFICER documented in this encounter Nursing Notes 09/26/2012 11:00 AM CST >> MARQUITA KENDAL Mon Sep 26, 2012 11:13 AM Patient presents with: Pharyngitis - sore throat, BREWSTER, slight fatigue x 2 days Initial BP 78/56 Pulse 88 Temp(Src) 97.6 ??F (36.4 ??C) (Oral) Ht 4' 6 (1.372 m) Wt 70 lb 1.6 oz (31.797 kg) BMI 16.90 kg/m2 SpO2 98% Estimated Body mass index is 16.90 kg/(m^2) as calculated from the following: Height as of this encounter: 4' 6(1.372 m). Weight as of this encounter: 70 lb 1.6 oz(31.797 kg).. BP completed using cuff size: regular Marquita Wilks ABATEMENT WORKER documented in this encounter Plan of Treatment Not on filedocumented as of this encounter Procedures Procedure Name Priority Date/Time Associated Diagnosis Comme nts RAPID STREP SCREEN Routine 09/26/2012 11:24 AM Pharyngitis Re sults for this THROAT SWAB [employer] OFFICER procedure are i n the results section. BETA HEMOLYTIC Routine 09/26/2012 11:24 AM Pharyngitis Result s for this STREP GROUP A [employer]ICER procedure are in CULTURE the results section. documented in this encounter Results Beta strep group A culture (09/26/2012 11:24 AM FIELD HEALTH OFFICER) Component Value Ref Test Analysis Performed At [facility] Range Method Time Signature Specimen Throat [facility] Culture Micro No Beta [place] Streptococcus [facility] Micro Report FINAL 09/28/2012 [facility] Specimen Anatomical Collection Method Collection Time Receive d Time (Source) Location / / Volume Laterality Specimen from 09/26/2012 11:24 09/26/2012 throat AM FI[employer] HE[employer] OFFICER 11:26 AM FIELD HEALTH OFFICER (specimen) Renetta Kramer MD LAB - MICRO GENERAL ORDERABL ES Performing Organization Address City/State/ZIP Code Phon e Number [facility] [id number] [place] [address] [facility] Strep, Rapid Screen (09/26/2012 11:24 AM FIELD HEALTH OFFICER) Component Value Ref Test Analysis Performed At [facility] Range Method Time Signature Specimen Throat [facility] Rapid Strep A NEGATIVE: No Group A strepto coccal antigen detected by immunoassay, await [place] Screen culture report. [facility] Micro Report FINAL 09/26/2012 [facility] Specimen Anatomical Collection Method Collection Time Receive d Time (Source) Location / / Volume Laterality Specimen from 09/26/2012 11:24 09/26/2012 throat AM FI[employer] OFFICER 11:26 AM FI[employer] HE[employer] OFFICER (specimen) Renetta Krmaer MD LAB - MICRO GENERAL ORDERABL ES Performing Organization Address City/State/ZIP Code Phon e Number [facility] [id number] [place] [address] [facility] documented in this encounter Visit Diagnoses Diagnosis Pharyngitis - Primary Acute pharyngitis documented in this encounter Care Teams Operating Room Manager Relationship Specialty Start Date End Date Renetta Kramer MD PCP - General Family Practice 04/21/12 06/10/15 [facility] [address] [place] [address] documented as of this encounter
--- OUTSIDE RECORDS SUMMARY | 2022-06-02 10:06 | XMS_ITS | Encounter Summary ---
:2000 Author Organization [facility] Address [address] [place] [id number] Care Team Providers Name Role Phone Renetta Kramer MD Primary Care Provider Reason for Visit Reason Comments Well Child sports px Pre Visit Planning - Done Encounter Details Date Type Department Care Team Description 06/28/2014 Office Visit [facility] Kayleen Diaz Routine i [facility] or child [facility] [place] FELIX Allen SHIFT SUPERVISOR health check (Primary [id number] [facility] [phone]) [place] [phone] [place], [place] [phone] Social History Tobacco Use Types Packs/Day Years Used Date Never Smoker Smokeless Tobacco: Never Used Alcohol Use Standard Drinks/Week Comments No 0 (1 standard drink = 0.6 oz pure alcoho l) Sex Assigned at Date Recorded Not on file documented as of this encounter Last Filed Vital Signs Vital Sign Reading Time Taken Comments Blood Pressure 100/64 06/28/2014 2:38 PM CDT Pulse 84 06/28/2014 2:38 PM CDT Temperature 36.8 ??C (98.3 ??F) 06/28/2014 2:38 PM CDT Respiratory Rate 14 06/28/2014 2:38 PM CDT Oxygen Saturation - - Inhaled Oxygen Concentration - - Weight 37.3 kg (82 lb 3.2 oz) 06/28/2014 2:38 PM CDT Height 146.1 cm (4' 9.5) 06/28/2014 2:38 PM CDT Body Mass Index 17.48 06/28/2014 2:38 PM CDT Body Mass Index Percentile 42.10 % 06/28/2014 2:38 PM CD T Growth Chart: [facility] (Girls, 2-20 Years) documented in this encounter Patient Instructions Patient InstructionsStuartJackson durand, WILDLIFE ECOLOGIST - 06/27/2014 3:15 PM CDT Preventive Care at the 9-11 Year Visit Growth Percentiles & Measurements Weight: 0 lbs 0 oz / Patient actual weight not available. / No weight on file for this encounter. Length: Data Unavailable / 0 cm No height on file for this encounter. BMI: There is no height or weight on file to calculate BMI. No unique date with height and weight onfile. Blood Pressure: No BP reading on file for this encounter. Your child should be seen every one to two years for preventive care. Development ?? Friendships will become more important. Peer pressure may begin. ?? Set up a routine for talking about school and doing homework. ?? Limit your child to 1 to 2 hours of quality screen time each day. Screen time includes television, video game and computer use. Watch TV with your child and supervise Internet use. ?? Spend at least 15 minutes a day reading to or reading with your child. ?? Teach your child respect for property and other people. ?? Give your child opportunities for independence within set boundaries. Diet ?? Children ages 9 to 11 need 2,000 calories each day. ?? Between ages 9 to 11 years, your child???s bones are growing their fastest. To help build strong and healthy bones, your child needs 1,300 milligrams (mg) of calcium each day. she can get this requirement by drinking 3 cups of low-fat or fat-free milk, plus servings of other foods high in calcium (such as yogurt, cheese, orange juice with added calcium, broccoli and almonds). ?? Until age 8 your child needs 10 mg of iron each day. Between ages 9 and 13, your child needs 8 mgof iron a day. Lean beef, iron-fortified cereal, oatmeal, soybeans, spinach and tofu are good sources of iron. ?? Your child needs 600 IU/day vitamin D which is most easily obtained in a multivitamin or Vitamin D supplement. ?? Help your child choose fiber-rich fruits, vegetables and whole grains. Choose and prepare foods and beverages with little added sugars or sweeteners. ?? Offer your child nutritious snacks like fruits or vegetables. Remember, snacks are not an essential part of the daily diet and do add to the total calories consumed each day. A single piece of fruitshould be an adequate snack for when your child returns home from school. Be careful. Do not over feed your child. Avoid foods high in sugar or fat. ?? Let your child help select good choices at the grocery store, help plan and prepare meals, and help clean up. Always supervise any kitchen activity. ?? Limit soft drinks and sweetened beverages (including juice) to no more than one a day. ?? Limit sweets, treats and snack foods (such as chips), fast foods and fried foods. Exercise ?? The [place] [employer] recommends children get 60 minutes of moderate to vigorous physical activity each day. This time can be divided into chunks: 30 minutes physical education in school, 10 minutes playing catch, and a 20-minute family walk. ?? In addition to helping build strong bones and muscles, regular exercise can reduce risks of certain diseases, reduce stress levels, increase self-esteem, help maintain a healthy weight, improve concentration, and help maintain good cholesterol levels. ?? Be sure your child wears the right safety gear for his or her activities, such as a helmet, mouthguard, knee pads, eye protection or life vest. ?? Check bicycles and other sports equipment regularly for needed repairs. Sleep ?? Children ages 9 to 11 need at least 9 hours of sleep each night on a regular basis. ?? Help your child get into a sleep routine: washing@ face, brushing teeth, etc. ?? Set a regular time to go to bed and wake up at the same time each day. Teach your child to get upwhen called or when the alarm goes off. ?? Avoid regular exercise, heavy meals and caffeine right before bed. ?? Avoid noise and bright rooms. ?? Your child should not have a television in her bedroom. It leads to poor sleep habits and increased obesity. Safety ?? When riding in a car, your child needs to be buckled in the back seat. Children should not sit inthe front seat until 13 years of age or older. (she may still need a booster seat). Be sure all other adults and children are buckled as well. ?? Do not let anyone smoke in your home or around your child. ?? Practice home fire drills and fire safety. ?? Supervise your child when she plays outside. Teach your child what to do if a stranger comes up to her. Warn your child never to go with a stranger or accept anything from a stranger. Teach your child to say ???NO?? and tell an adult she trusts. ?? Enroll your child in swimming lessons, if appropriate. Teach your child water safety. Make sure your child is always supervised whenever around a pool, talamantes, or river. ?? Teach your child animal safety. ?? Teach your child how to dial and use 911. ?? Keep all guns out of your child???s reach. Keep guns and ammunition locked up in different parts of the house. Self-esteem ?? Provide support, attention and enthusiasm for your child???s abilities, achievements and friends. ?? Support your child???s school activities. ?? Let your child try new skills (such as school or community activities). ?? Have a reward system with consistent expectations. Do not use food as a reward. Discipline ?? Teach your child consequences for unacceptable or inappropriate behavior. Talk about your family???s values and morals and what is right and wrong. ?? Use discipline to teach, not punish. Be fair and consistent with discipline. Dental Care ?? The second set of molars comes in between ages 11 and 14. Ask the dentist about sealants (plasticcoatings applied on the chewing surfaces of the back molars). ?? Make regular dental appointments for cleanings and checkups. Eye Care ?? If you or your pediatric provider has concerns, make eye checkups at least every 2 years. An eye test will be part of the regular well checkups. documented in this encounter Progress Notes Kayleen Diaz NP - 06/27/2014 3:15 PM CDT SUBJECTIVE: Nikkie Broussard is a 13 year old female, here for a routine health maintenance visit, accompanied by her father. Patient was roomed by: QUESTIONS/CONCERNS: None FAMILY/SOCIAL HISTORY Child lives with: mother, father, sister and brother Who takes care of your child: school Language(s) spoken at home: Greek Recent family changes/social stressors: none noted SAFETY Is your child around anyone who smokes: No TB exposure: No Does your child always wear a seat belt? Yes Helmet worn for bicycle/roller blades/skateboard? Yes Home Safety Survey: ?? Guns/firearms in the home: No Is your child ever at home alone: YES--often Do you monitor your child's screen use? Yes VISION Wears glasses? YES, glasses worn for testing Right eye: 20/25 Left eye: 20/25 Both eyes: 20/20 Question Validity: no HEARING Right Ear: 500 Hz: RESPONSE- on Level: 25 db 1000 Hz: RESPONSE- on Level: 25 db 2000 Hz: RESPONSE- on Level: 25 db 4000 Hz: RESPONSE- on Level: 25 db Left Ear: 500 Hz: RESPONSE- on Level: 25 db 1000 Hz: RESPONSE- on Level: 25 db 2000 Hz: RESPONSE- on Level: 25 db 4000 Hz: RESPONSE- on Level: 25 db Question Validity: no DENTAL Dental health HIGH risk factors: none Water source: city water and FILTERED WATER SPORTS QUESTIONNAIRE: School: Middle School Grade: 6 Sports: tennis 1. no - Has a doctor ever denied or restricted your participation in sports for any reason or told you to give up sports? 2. no - Do you have an ongoing medical condition (like diabetes,asthma, anemia, infections)? 3. no - Are you currently taking any prescription or nonprescription (lwon-lde-[id number]) medicines orpills? 4. no - Do you have allergies to medicines, pollens, foods or stinging insects? 5. no - Have you ever spent a night in a hospital? 6. no - Have you ever had surgery? 7. no - Have you ever passed out or nearly passed out DURING exercise? 8. no - Have you ever passed out or nearly passed out AFTER exercise? 9. no - Have you ever had discomfort, pain, tightness, or pressure in your chest during exercise? 10.. no - Does your heart race or skip beats (irregular beats) during exercise? 11. no - Has a doctor ever told you that you have High Blood Pressure, a Heart Murmur, High Cholesterol, a Heart Infection, Rheumatic Fever or Kawasaki's Disease? 12. no - Has a doctor ever ordered a test for your heart? (for example: ECG, echocardiogram, stress test) 13. no -Do you get lightheaded or feel more short of breath than expected during exercise? 14. no- Have you ever had an unexplained seizure? 15. no - Do you get tired or short of breath more quickly than your friends do during exercise? 16. no- Has any family member or relative of heart problems or had an unexpected or unexplainedsudden before age 50 (including unexplained drowning, unexplained car accident or sudden syndrome)? 17. no - Does anyone in your family have hypertrophic cardiomyopathy, Marfan syndrome, arrhythmogenic right ventricular cardiomyopathy, long QT syndrome, short QT syndrome, Brugada syndrome, or catecholaminergic polymorphic ventricular tachycardia? 18. no - Does anyone in your family have a heart problem, pacemaker, or implanted defibrillator? 19.no- Has anyone in your family had an unexplained fainting, unexplained seizures, or near drowning? 20. no - Have you ever had an injury, like a sprain, muscle or ligament tear or tendonitis, that caused you to miss a practice or game? 21. no - Have you had any broken or fractured bones, or dislocated joints? 22. no - Have you had an injury that required x-rays, MRI, CT, surgery, injections, therapy, a brace, a cast, or crutches? 23. no - Have you ever had a stress fracture? 24. no - Have you been told that you have or have you had an x-ray for neck instability? 25. no - Do you regularly use a brace, orthotics or other assistive device? 26. no -Do you have a bone, muscle or joint injury that bothers you ? 27. no- Do any of your joints become painful, swollen, feel warm or look red? 28. no- Do you have a history of juvenile arthritis or connective tissue disease? 29. YES - Has a doctor ever told you that you have asthma or allergies? Grown out of asthma 30. YES - Do you cough, wheeze, have chest tightness, or have difficulty breathing during or after exercise? Couple times this past year 31. NO - Is there anyone in your family who has asthma? 32. no - Have you ever used an inhaler or taken asthma medicine? 33. no - Do you develop a rash or hives when you exercise? 34. no - Were you born without or are you missing a kidney, an eye, or any other organ? 35. no- Do you have groin pain or a painful bulge or hernia in the groin area? 36. no - Have you had infectious mononucleosis (mono) within the last month? 37. no - Do you have any rashes, pressure sores, or other skin problems? 38. no - Have you had a herpes or MRSA skin infection? 39. no - Have you ever had a head injury or concussion? 40. no - Have you ever had a hit or blow to the head that caused confusion, prolonged headaches or memory problems? 41. no - Do you have a history of seizure disorder? 42. no - Do you have headaches with exercise? 43. YES - Have you ever had numbness, tingling or weakness in your arms or legs after being hit or falling? Hurt neck on trampoline around age 9 44. YES - Have you ever been unable to move your arms or legs after being hit or falling? See above 45. no - Have you ever become ill when exercising in the heat? 46. no -Do you get frequent muscle cramps when exercising? 47. no - Do you or someone in your family has sickle cell trait or disease? 48. no - Have you had any problems with your eyes or vision? 49. no- Have you had any eye injuries? 50. YES - Do you wear glasses or contact lenses? Contact lenses 51. no - Do you wear protective eyewear, such as goggles or a face shield? 52. no - Do you worry about your weight? 53. no - Are you trying to or has anyone recommended that you gain or lose weight? 54. no - Are you on a special diet or do you avoid certain types of foods? 55. no - Have you ever had an eating disorder? 56. no - Do you have any concerns that you would like to discuss with a doctor? 57. YES - Have you ever had a menstrual period? 58. How old were you when you had your first menstrual period? no 61. How many menstrual periods have you had in the lst year? no DAILY ACTIVITIES DIET AND EXERCISE Does your child get at least 4 helpings of a fruit or vegetable every day: Yes Does your child eat breakfast every day: Yes What does your child drink besides milk and water (and how much?): juice, pop sometimes Does your family sit down and eat at least 3 meals together per week: Yes Does your family eat out (take out, delivery, fast food, restaurant) more than one day per week: YES Does your child get at least 60 minutes per day of active play, including time in and out of school:Yes TV in child's bedroom: No Dairy/ calcium: 1% milk and 2-3 servings daily and almond SLEEP: No concerns, sleeps well through night ELIMINATION Normal bowel movements and Normal urination MEDIA < 2 hours/ day ACTIVITIES: Hockey and tennis EDUCATION Concerns: no School: [employer] Grade: 6th Patient Active Problem List Diagnosis ??? Wheezing No Known Allergies Immunization History Administered Date(s) Administered ? ? DTAP (<7y) 2002, 01/09/2003, 04/18/2003, 08/26/2004, 08/18/2007 ??? HIB 2002, 01/09/2003, 04/18/2003, 08/24/2003 ??? Hepatitis A 05/12/2012 ??? Hepatitis B 2002, 2002, 08/24/2003 ??? IPV 2002, 01/09/2003, 04/18/2003, 08/18/2007 ??? Influenza (IIV3) 08/18/2007, 2012 ??? MMR 12/10/2003, 08/18/2007 ??? Pneumococcal (PCV 7) 08/24/2003, 12/10/2003 ??? Varicella 08/24/2003, 08/18/2007 HEALTH HISTORY SINCE LAST VISIT No surgery, major illness or injury since last physical exam MENTAL HEALTH Screening: Pediatric Symptom Checklist PASS (score 2--<28 pass), no followup necessary No concerns ROS GENERAL: See health history, nutrition and daily activities SKIN: No rash, hives or significant lesions HEENT: Hearing/vision: see above. No eye, nasal, ear symptoms. RESP: No cough or other concerns CV: No concerns GI: See nutrition and elimination. No concerns. : See elimination. No concerns NEURO: No headaches or concerns. PSYCH: See development and behavior, or mental health OBJECTIVE: EXAM BP 100/64 Pulse 84 Temp(Src) 98.3 ??F (36.8 ??C) (Oral) Resp 14 Ht 4' 9.5 (1.461 m) Wt 82lb 3.2 oz (37.286 kg) BMI 17.47 kg/m2 29%ile based on [facility] 2-20 Years [id number] data using vitals from 06/28/2014. 31%ile based on [facility] 2-20 Years [id number] data using vitals from 06/28/2014. 42%ile based on CDC 2-20 Years BMI-for-age data using vitals from 06/28/2014. 33.5% systolic and 57.8% diastolic of BP percentile by age, sex, and height. GENERAL: Active, alert, in no acute distress. SKIN: Clear. No significant rash, abnormal pigmentation or lesions HEAD: Normocephalic EYES: Sharp optic discs. Pupils equal, round, reactive, Extraocular muscles intact. Normal conjunctivae. EARS: Normal canals. Tympanic membranes are normal; smith and translucent. NOSE: Normal without discharge. MOUTH/THROAT: Clear. No oral lesions. Teeth without obvious abnormalities. NECK: Supple, no masses. No thyromegaly. LYMPH NODES: No adenopathy LUNGS: Clear. No rales, rhonchi, wheezing or retractions HEART: Regular rhythm. Normal S1/S2. No murmurs. Normal pulses. ABDOMEN: Soft, non-tender, not distended, no masses or hepatosplenomegaly. Bowel sounds normal. NEUROLOGIC: No focal findings. Cranial nerves grossly intact: DTR's normal. Normal gait, strength and tone BACK: Spine is straight, no scoliosis. EXTREMITIES: Full range of motion, no deformities -F: Normal female external genitalia, Carlos stage 2. BREASTS: Carlos stage 2. No abnormalities. SPORTS EXAM: Shoulder: normal Elbow: normal Hand/Wrist: normal Back: normal Quad/Ham: normal Knee: normal Ankle/Feet: normal Heel/Toe: normal Duck walk: normal ASSESSMENT/PLAN: 1. Well child with normal growth and development DENTAL VARNISH Has a dental provider Anticipatory Guidance The following topics were discussed: SOCIAL/ FAMILY: Encourage reading Limit / supervise TV/ media Friends Conflict resolution NUTRITION: Healthy snacks Family meals Calcium and iron sources Balanced diet HEALTH/ SAFETY: Physical activity Regular dental care Bike/sport helmets Preventive Care Plan Immunizations ?? See orders in EpicCare. Counseling provided regarding the benefits and risks related to the vaccines ordered today. I reviewed the signs and symptoms of adverse effects and when to seek medical careif they should arise. Referrals/Ongoing Specialty care: No See other orders in EpicCare. Dental visit recommended: Continue care every 6 months Vision: normal Hearing: normal BMI at 42%ile based on CDC 2-20 Years BMI-for-age data using vitals from 06/28/2014. No weight concerns. Cleared for sports FOLLOW-UP: in 1 year for a Preventive Care visit Kayleen Diaz NP [facility] documented in this encounter Nursing Clair Mohan - 06/28/2014 2:42 PM CDT Chief Complaint Patient presents with ??? Well Child sports px ??? Pre Visit Planning - Done Initial BP 100/64 Pulse 84 Temp(Src) 98.3 ??F (36.8 ??C) (Oral) Ht 4' 9.5 (1.461 m) Wt 82 lb 3.2 oz (37.286 kg) BMI 17.47 kg/m2 Estimated body mass index is 17.47 kg/(m^2) as calculated fromthe following: Height as of this encounter: 4' 9.5 (1.461 m). Weight as of this encounter: 82 lb 3.2 oz (37.286 kg). BP completed using cuff size: tino Beck- student KATEY documented in this encounter Plan of Treatment Not on filedocumented as of this encounter Procedures Procedure Name Priority Date/Time Associated Diagnosis Comme nts ZZC DEVELOPMENTAL SCREEN Routine 06/28/2014 3:07 PM Routine in bhanu or W INTERP/REPORT CDT child health check HC SCREENING TEST, PURE Routine 06/28/2014 3:07 PM Routine inf ant or TONE, AIR ONLY CDT child health check documented in this encounter Visit Diagnoses Diagnosis Routine or child health check - P rimary documented in this encounter Care Teams Sawmill Tally Clerk Relationship Specialty Start Date End Date Renetta Kramer MD PCP - General Family Practice 04/21/12 06/10/[address] [id number] documented as of this encounter
--- OUTSIDE RECORDS SUMMARY | 2022-06-02 10:06 | XMS_ITS | Encounter Summary ---
:2002 Author Organization [facility] Address [address] [place] [address] Care Team Providers Name Role Phone Renetta Kramer MD Primary Care Provider Reason for Visit Reason Comments Ear Problem Headache Encounter Details Date Type Department Care Team Description 12/20/2014 Office Visit [facility] Kathy Cordero Serous otitis media, Clinic [place] FELIX Jeffries SUPERVISOR STAGE CARPENTRY right (Primary Dx) [address] [id number] [id number] Social History Tobacco Use Types Packs/Day Years Used Date Never Smoker Smokeless Tobacco: Never Used Alcohol Use Standard Drinks/Week Comments No 0 (1 standard drink = 0.6 oz pure alcoho l) Sex Assigned at Date Recorded Not on file documented as of this encounter Last Filed Vital Signs Vital Sign Reading Time Taken Comments Blood Pressure 112/60 12/20/2014 1:54 PM VALVE MACHINE OPERATOR Pulse 77 12/20/2014 1:54 PM VALVE MACHINE OPERATOR Temperature 36.8 ??C (98.3 ??F) 12/20/2014 1:54 PM VALVE MACHINE OPERATOR Respiratory Rate - - Oxygen Saturation 98% 12/20/2014 1:54 PM VALVE MACHINE OPERATOR Inhaled Oxygen Concentration - - Weight 37.6 kg (83 lb) 12/20/2014 1:54 PM VALVE MACHINE OPERATOR Height - - Body Mass Index - - documented in this encounter Patient Instructions Patient InstructionsKathy Cordero POURER - 12/20/2014 2:06 PM CST Images from the original note were not included. * VIRAL RESPIRATORY ILLNESS [Child] Your child has a viral Upper Respiratory Illness (URI), which is another term for the COMMON COLD. The virus is contagious during the first few days. It is spread through the air by coughing, sneezing or by direct contact (touching your sick child then touching your own eyes, nose or mouth). Frequent hand washing will decrease risk of spread. Most viral illnesses resolve within 7-14 days with rest and simple home remedies. However, they may sometimes last up to four weeks. Antibiotics will not kill a virus and are generally not prescribed for this condition. HOME CARE: 1) FLUIDS: Fever increases water loss from the body. For infants under 1 year old, continue regular formula or breast feedings. Infants with fever may prefer smaller, more frequent feedings. Between feedings offer Oral Rehydration Solution. (You can buy this as Pedialyte, Infalyte or Rehydralyte from grocery and drug stores. No prescription is needed.) For children over 1 year old, give plenty of fluids like water, juice, 7-Up, aziza-julianna, lemonade or popsicles. 2) EATING: If your child doesn't want to eat solid foods, it's okay for a few days, as long as she/he drinks lots of fluid. 3) REST: Keep children with fever at home resting or playing quietly until the fever is gone. Your child may return to day care or school when the fever is gone and she/he is eating well and feeling better. 4) SLEEP: Periods of sleeplessness and irritability are common. A congested child will sleep best with the head and upper body propped up on pillows or with the head of the bed frame raised on a 6 inchblock. An infant may sleep in a car-seat placed in the crib or in a baby swing. 5) COUGH: Coughing is a normal part of this illness. A cool mist humidifier at the bedside may be helpful. Vjir-ovx-nefolhk cough and cold medicines are not helpful in young children, but they can produce serious side effects, especially in infants under 2 years of age. Therefore, do not give uuob-nsc-dclflfr cough and cold medicines to children under 6 years unless your doctor has specifically advised you to do so. Also, don???t expose your child to cigarette smoke.??It can make the cough worse. 6) NASAL CONGESTION: Suction the nose of infants with a rubber bulb syringe. You may put 2-3 drops of saltwater (saline) nose drops in each nostril before suctioning to help remove secretions. Saline nose drops are available without a prescription or make by adding 1/4 teaspoon table salt in 1 cup of water. 7) FEVER: Use Tylenol (acetaminophen) for fever, fussiness or discomfort.??In children over six months of age, you may use ibuprofen (Children???s Motrin) instead of Tylenol. [NOTE: If your child has chronic liver or kidney disease or has ever had a stomach ulcer or GI bleeding, talk with your doctor before using these medicines.] Aspirin should never be used in anyone under 18 years of age who is ill with a fever. It may cause severe liver damage. 8) PREVENTING SPREAD: Washing your hands after touching your sick child will help prevent the spreadof this viral illness to yourself and to other children. FOLLOW UP as directed by our staff. CALL YOUR DOCTOR OR GET PROMPT MEDICAL ATTENTION if any of the following occur: ?? Fever reaches 105.0??F (40.5?? C) ?? Fever remains over 102.0?? F (38.9?? C) rectal, or 101.0?? F (38.3?? C) oral, for three days ?? Fast breathing ( to 6 wks: over 60 breaths/min; 6 wk - 2 yr: over 45 breaths/min; 3-6 yr: over 35 breaths/min; 7-10 yrs: over 30 breaths/min; more than 10 yrs old: over 25 breaths/min) ?? Increased wheezing or difficulty breathing ?? Earache, sinus pain, stiff or painful neck, headache, repeated diarrhea or vomiting ?? Unusual fussiness, drowsiness or confusion ?? New rash appears ?? No tears when crying; sunken eyes or dry mouth; no wet diapers for 8 hours in infants, reduced urine output in older children ?? [id number] Nery Landin, [address] [place] [address], [place] [id number]. All rights reserved. This information is not intended as a substitute for professional medical care. Always follow your healthcare professional's instructions. E MACHINE OPERATOR documented in this encounter Progress Notes Kathy Cordero NP - 12/20/2014 1:53 PM CST SUBJECTIVE: Nikkie Broussard is a 14 year old female who presents to clinic today for the following health issues: Patient is here because she has a earache on her right side that started yesterday and she is also having a headache that started 2 days ago. Has a minor sore throat, no cough, no rashes, no fevers. Problem list and histories reviewed & adjusted, as indicated. Additional history: as documented Patient Active Problem List Diagnosis ??? Childhood asthma No past surgical history on file. History Substance Use Topics ??? Smoking status: Never Smoker ??? Smokeless tobacco: Never Used ??? Alcohol Use: No Family History Problem Relation Age of Onset ??? Family History Negative Mother ??? Family History Negative Father ??? Family History Negative Sister 1 ??? Family History Negative Brother 1 ??? C.A.D. No family hx of ??? Diabetes No family hx of ??? Stroke No family hx of ROS: C: NEGATIVE for fever, chills, change in weight ENT/MOUTH: POSITIVE for ear pain right R: NEGATIVE for significant cough or SOB CV: NEGATIVE for chest pain, palpitations or peripheral edema GI: NEGATIVE for nausea, abdominal pain, heartburn, or change in bowel habits OBJECTIVE: BP 112/60 Pulse 77 Temp(Src) 98.3 ??F (36.8 ??C) (Oral) Wt 83 lb (37.649 kg) SpO2 98% ? No There is no height on file to calculate BMI. GENERAL: healthy, alert and no distress EYES: Eyes grossly normal to inspection, PERRL and conjunctivae and sclerae normal HENT: normal cephalic/atraumatic, right ear: clear effusion, left ear: normal TM, nose and mouth without ulcers or lesions, oropharynx clear and oral mucous membranes moist NECK: bilateral posterior cervical adenopathy, no asymmetry, masses, or scars and thyroid normal to palpation RESP: lungs clear to auscultation - no rales, rhonchi or wheezes CV: regular rate and rhythm, normal S1 S2, no S3 or S4, no murmur, click or rub, no peripheral edemaand peripheral pulses strong ABDOMEN: tenderness LUQ and bowel sounds normal MS: no gross musculoskeletal defects noted, no edema SKIN: no suspicious lesions or rashes Diagnostic Test Results: none ASSESSMENT/PLAN: ICD-9-CM 1. Serous otitis media, right 381.4 Discussed my concern for potential mono. Will not test today given only 2 days of illness. RTC if symptoms are not resolved early next week. Sooner for any worsening or concerning symptoms. Kathy Cordero NP [facility] E MACHINE OPERATOR documented in this encounter Nursing Notes Antonella Bartlett CMA - 12/20/2014 1:53 PM CST Chief Complaint Patient presents with ??? Ear Problem ??? Headache Initial There were no vitals taken for this visit. Estimated body mass index is 17.47 kg/(m^2) as calculated from the following: Height as of 06/28/14: 4' 9.5 (1.461 m). Weight as of 06/28/14: 82 lb 3.2 oz (37.286 kg). BP completed using cuff size: regular right arm. Antonella Bartlett CMA E MACHINE OPERATOR documented in this encounter Plan of Treatment Not on filedocumented as of this encounter Visit Diagnoses Diagnosis Serous otitis media, right - Primary documented in this encounter Care Teams Inside Horticultural Specialty Grower Relationship Specialty Start Date End Date Renetta Kramer MD PCP - General Family Practice 04/21/12 06/10/15 [place] [address] documented as of this encounter
--- OUTSIDE RECORDS SUMMARY | 2022-06-02 10:06 | XMS_ITS | Encounter Summary ---
:2002 Author Organization [facility] Address [address] [place] [address] Care Team Providers Name Role Phone Unavailable Primary Care Provider Unavailable Reason for Visit Reason Onset Date Comments Cast Problem 12/04/2015 cast change Encounter Details Date Type Department Care Team Description 12/04/2015 Telephone [facility] Carrillo Guerin, Cast Problem (cast Sports Medicine Clinic DO change) [place] [address] [id number] [place] [address] Social History Tobacco Use Types Packs/Day Years Used Date Never Smoker Smokeless Tobacco: Never Used Alcohol Use Standard Drinks/Week Comments No 0 (1 standard drink = 0.6 oz pure alcoho l) Sex Assigned at Date Recorded Not on file documented as of this encounter Miscellaneous Notes Telephone Encounter - Juan Oshea - 12/04/2015 10:53 AM CST Came to clinic for cast change. No action required. For your information only. Juan Oshea ATC, ATR OS ANALYST Telephone Encounter - Juan Oshea - 12/04/2015 9:40 AM CST Patients father left voice mail stating that his daughter's cast broke where it passes through the day. She is supposed to play in a hockey game on Wednesday and wants to know what the best course of action is. I discussed with Dr. Slater who the patient is scheduled to f/u with on 12/[address] Guerin being out of office. She would like the patient to have the cast changed/modified prior to the hockey game by an ATC (no office visit needed) and would like to keep the scheduled appt for next week. Returned call to father and discussed Dr. Slater's recommendation. He is going to try an get his daughter from school and come to the clinic this morning. He will let us know if he isn't able to come until this afternoon. Juan Oshea ATC OS ANALYST documented in this encounter Plan of Treatment Not on filedocumented as of this encounter Visit Diagnoses Not on filedocumented in this encounter
--- OUTSIDE RECORDS SUMMARY | 2022-06-02 10:06 | XMS_ITS | Encounter Summary ---
:2002 Author Organization [facility] Address [address] [place] [address] Care Team Providers Name Role Phone Unavailable Primary Care Provider Unavailable Reason for Visit Reason Comments RECHECK right wrist pain Encounter Details Date Type Department Care Team Description 12/10/[address] [facility] [place] [facility] Sports Medicine DO Closed nondisplaced fracture of styloid process of right ulna with routine healing, subsequent encounter; Clinic [facility] Closed traumatic nondisplace d metaphyseal torus fracture of distal end of right radius; [address] [facility] [address] [address] [facility] Sprain of ulnar collateral ligament of r ight elbow, initial encounter [address] [address] [place] [address] [address] [place], [place] [address] (Wo rk) Social History [...] - - Weight 39.5 kg (87 lb) 12/10/2015 4:15 PM CARDIOPULMONARY TECHNOLOGIST Height 154.9 cm (5' 1) 12/10/2015 4:15 PM CARDIOPULMONARY TECHNOLOGIST Body Mass Index 16.44 12/10/2015 4:15 PM CARDIOPULMONARY TECHNOLOGIST Body Mass Index Percentile 14.34 % 12/10/2015 4:15 PM CS T Growth Chart: [facility] (Girls, 2-20 Years) documented in this encounter Patient Instructions Patient InstructionsGeorgia Slater DO - 12/10/2015 3:49 PM CST Thank you for allowing us to participate in your care today. Please find below your visit diagnosis and the plan going forward. 1. Right wrist pain 2. Closed nondisplaced fracture of styloid process of right ulna with routine healing, subsequent encounter 3. Closed traumatic nondisplaced metaphyseal torus fracture of distal end of right radius 4. Sprain of ulnar collateral ligament of right elbow, initial encounter Xrays show good healing of the fracture in your radius, but the fracture of your ulna is fairly unchanged. You were placed in a cast today. Same cast care as before. You also likely have a sprain of your UCL in your right elbow. You can follow-up with Dr. Guerin regarding this in two weeks. Follow up in [address] Guerin (sooner if needed; call direct clinic number [[phone]] at anytime with questions or concerns) [place] Slater DO [facility] IOPULMONARY TECHNOLOGIST documented in this encounter Progress Notes [place] Slater DO - 12/10/2015 4:12 PM CST [facility] Visit Dec 10, 2015 Subjective: Nikkie Broussard is a 15 year old female who is seen in follow-up for right wrist fracture that was sustained on 11/16/2015. They were last seen 11/25/[address] Guerin. She was also seen on 12/04/2015 for cast change, as she had broken the cast while playing hockey. The patient is seen with their father. Since their last visit reports 50% improvement. She reports that she has been continuing to improve in the cast. Also reports that she is having pain on the inside of her right elbow. Which has been present since the initial injury. Has not noticed any swelling and has not affected her activities.. Patient's past medical, surgical, social, and family histories were reviewed today and no changes are noted. Review of Systems: Constitutional: NEGATIVE for fever, chills, change in weight Skin: NEGATIVE for worrisome rashes, moles or lesions GI/: NEGATIVE for bowel or bladder changes Neuro: NEGATIVE for weakness, dizziness or paresthesias Objective: Ht 5' 1 (1.549 m) Wt 87 lb (39.463 kg) BMI 16.45 kg/m2 General: Well-appearing and in no acute distress Skin: No evidence of skin breakdown, compromise, or ulceration NVS: Regional pulses normal. Capillary refill less than 2 seconds. Decreased sensation to light touch of the volar aspect of the right thumb/middle finger and ulnar sided right forearm region. No limitations noted on strength testing. Full range of motion of the exposed digits MSK: RIGHT WRIST Inspection: No swelling of the right forearm region, no ecchymosis of the ulnar side of the forearm. No skin breakdown appreciated. Palpation: Tender about the distal radius, distal ulna fingers Range of Motion: Elbow supination/pronation - improving but still has some minimal pain Elbow flexion/extension - normal Strength: Chaplain strength 5-/5 Special Tests: None RIGHT ELBOW Inspection: No swelling, bruising, discoloration, or obvious deformity or asymmetry Palpation: Tender about the UCL No tenderness over the lateral epicondyle, common extensor tendon, medial epicondyle, common flexortendon Crepitus is Absent Range of Motion: Extension full / flexion full Special Tests: Positive: Pain with valgus stressing. Did not evaluate with milking maneuver given her wrist fracture. Imaging: Reviewed by me XR RIGHT WRIST, 3 VIEW ordered and interpreted in the office today which shows a metaphyseal buckle fracture of the distal radius with some interval healing and sclerosis. Fracture at the ulnar styloidremains and looks relatively unchanged from previous image. ASSESSMENT & PLAN ICD-10-CM 1. Right wrist pain M25.531 XR Wrist Right G/E 3 Views 2. Closed nondisplaced fracture of styloid process of right ulna with routine healing, subsequent encounter S52.614D Forearm (Shortarm) Cast Short Arm Cast Supplies 3. Closed traumatic nondisplaced metaphyseal torus fracture of distal end of right radius S52.521A Forearm (Shortarm) Cast Short Arm Cast Supplies 4. Sprain of ulnar collateral ligament of right elbow, initial encounter [id number] Reviewed her x-rays from today as compared with previous with both Nikkie and her father. She shows some interval healing at the distal radius however the ulnar styloid fracture looks fairly unchanged. Based on this we discussed continuing with cast immobilization. Therefore she was placed in a short arm cast today. Plan is for her to follow up with Dr. Guerin in 2 weeks. In regards to the medial sided right elbow pain. She does have some pain with valgus stress which may indicate a UCL sprain. Given that she has very limited activity with the current wrist fracture as well as her sport doesn't put a tremendous amount of valgus load on the elbow can likely be managed co nservatively. She is to discuss this further with Dr. Guerin when she follows up in 2 weeks for her wrist Follow up in [address] Guerin or sooner if needed. Call direct clinic number [[phone]] at any time with questions or concerns. Instructed to call the office if the condition evolves or worsens. Patient's conditions were thoroughly discussed during today's visit with greater than 50% of the visit spent counseling the patient with total time spent pbiv-ui-oyak with the patient being 20 minutes. [place] Slater DO [facility] Sports and Orthopedic Care IOPULMONARY TECHNOLOGIST documented in this encounter Nursing Michael Gaines - 12/10/2015 4:14 PM CST Chief Complaint Patient presents with ??? RECHECK right wrist pain Initial There were no vitals taken for this visit. Estimated body mass index is 16.45 kg/(m^2) as calculated from the following: Height as of 11/25/15: 5' 1 (1.549 m). Weight as of 11/25/15: 87 lb (39.463 kg). BP completed using cuff size: NA (Not Taken) Michael Ibrahim ATC IOPULMONARY TECHNOLOGIST documented in this encounter Plan of Treatment Not on filedocumented as of this encounter Procedures Procedure Name Priority Date/Time Associated Diagnosis Comme nts HC APPLY SHORT ARM Routine 12/12/2015 8:39 AM Closed nondispla christina CAST CARDIOPULMONARY TECHNOLOGIST fracture of styloid process of right ulna with routine healing, subsequent encou nter Closed traumatic nondisplaced metaphyseal torus fracture of distal end of right radius documented in this encounter Results XR Wrist Right G/E 3 Views (12/10/2015 3:29 PM CARDIOPULMONARY TECHNOLOGIST) Anatomical Region Laterality Modality Right Wrist Right Computed Radiography Specimen (Source) Anatomical Location Collection Method / Collectio n Time Received Time / Laterality Volume Impressions 12/25/2015 1:56 PM CARDIOPULMONARY TECHNOLOGIST RIGHT WRIST, 3 VIEW ordered and interpreted in the office today which shows a metaphyseal buckle fracture of t he distal radius with some interval healing and sclerosis. Fracture at the ulnar styloid remains and looks relatively unchanged from previous image Narrative 12/25/2015 1:56 PM CARDIOPULMONARY TECHNOLOGIST XR [place] [facility] ORDER SUZI documented in this encounter Visit Diagnoses Diagnosis Right wrist pain - Primary Pain in joint, forearm Closed nondisplaced fracture of styloid process of right ulna with routine healing, subsequent encounter Closed traumatic nondisplaced metaphysea l torus fracture of distal end of right radius Sprain of ulnar collateral ligament of r ight elbow, initial encounter Right wrist pain Pain in joint, forearm documented in this encounter
--- OUTSIDE RECORDS SUMMARY | 2022-06-02 10:06 | XMS_ITS | Encounter Summary ---
:2002 Author Organization [facility] Address [address] [place] [address] Care Team Providers Name Role Phone Brown Sung PA-C Primary Care Provider [phone] Encounter Details Date Type Department Care Team Description 10/12/2017 Radiant Appointment [facility] [place] Slater in joint Sports and [place], DO involving right Orthopedic Care [facility] [place] pelvic re gion and [place] [facility] thigh [id number] [place] [id number] Social History Tobacco Use Types Packs/Day Years [...] Priority Date/Time Associated Diagnosis Comme nts XR PELVIS AND HIP Routine 10/12/2017 12:34 PM Pain in joint Re sults for this RIGHT 2 VIEWS DIPLOMA DENTAL ASSISTANT involving right procedure a re in pelvic region and the result s thigh section. documented in this encounter Results XR Pelvis and Hip Right 2 Views (10/12/2017 12:34 PM DIPLOMA DENTAL ASSISTANT) Anatomical Region Laterality Modality Abdomen/Pelvis Right Computed Radiography Specimen (Source) Anatomical Location Collection Method / Collectio n Time Received Time / Laterality Volume Impressions 10/12/2017 3:44 PM DIPLOMA DENTAL ASSISTANT IMPRESSION: Negative exam. JACKELIN MONTEIRO MD Narrative 10/12/2017 3:44 PM DIPLOMA DENTAL ASSISTANT XR PELVIS AND HIP RIGHT 2 VIEWS [...] thigh IMPRESSION: Negative exam. JACKELIN MONTEIRO MD Chevya Marilu Slater DO IMG DIAGNOSTIC IMAGING ORDER SUZI documented in this encounter Visit Diagnoses Diagnosis Pain in joint involving right pelvic reg ion and thigh documented in this encounter Care Teams Equine Manager Relationship Specialty Start Date End Date Brown Sung, PCP - General Physician Spike Machine Operator - 12/26/15 05/19/21 PA-C Medical documented as of this encounter
--- OUTSIDE RECORDS SUMMARY | 2022-06-02 10:06 | XMS_ITS | Encounter Summary ---
:2000 Author Organization [facility] Address [address] [place] [address]. [place] [address] Care Team Providers Name Role Phone Renetta Kramer MD Primary Care Provider Reason for Visit Reason Comments Ear Problem left ear pain, Encounter Details Date Type Department Care Team Description 11/01/2012 Office Visit [facility] Dahlia Watson (Primary Dx); [facility] Sarah Garrett PA-C Acute otitis media [id number] [facility] [id number] [place] [phone] [id number] Social History Tobacco Use Types Packs/Day Years Used Date Never Smoker Smokeless Tobacco: Never Used Alcohol Use Standard Drinks/Week Comments No 0 (1 standard drink = 0.6 oz pure alcoho l) Sex Assigned at Date Recorded Not on file documented as of this encounter Last Filed Vital Signs Vital Sign Reading Time Taken Comments Blood Pressure 90/60 11/01/2012 11:45 AM PUMP TENDER Pulse 83 11/01/2012 11:45 AM PUMP TENDER Temperature 36.9 ??C (98.4 ??F) 11/01/2012 11:45 AM PUMP TENDER Respiratory Rate - - Oxygen Saturation 99% 11/01/2012 11:45 AM PUMP TENDER Inhaled Oxygen Concentration - - Weight 32.2 kg (71 lb) 11/01/2012 11:45 AM PUMP TENDER Height 137.2 cm (4' 6) 11/01/2012 11:45 AM PUMP TENDER Body Mass Index 17.12 11/01/2012 11:45 AM PUMP TENDER Body Mass Index Percentile 52.66 % 11/01/2012 11:[address] Growth Chart: [facility] (Girls, 2-20 Years) documented in this encounter Patient Instructions Patient InstructionsAaSarah Glaser PA-C - 11/01/2012 12:09 PM PUMP TENDER Images from the original note were not included. Pharyngitis (primary encounter diagnosis) Comment: Plan: Strep, Rapid Screen, Beta strep group A culture Acute otitis media Comment: Plan: amoxicillin (AMOXIL) 500 MG capsule The patient is advised to push fluids, rest, use acetaminophen, ibuprofen as needed and Return office visit if symptoms persist or worsen. Ear Infection (Otitis Media) What is an ear infection? An ear infection is an infection of the middle ear (the space behind the eardrum). It is most often caused by bacteria. It usually is a complication of a cold and starts on the third day of the cold. Acold blocks off the tube that connects the middle ear to the back of the throat (the eustachian tube). Most children will have at least one ear infection, and over one fourth of these children will have repeated ear infections. Children are most likely to have ear infections between the ages of 6?monthsand 2?years, but they continue to be a common childhood illness until the age of 8?years. In 5% to 10% of children, the pressure in the middle ear causes the eardrum to rupture and drain a yellow or cloudy fluid. This small hole usually heals over the next few days. If the following treatment is carried out your child should be fine. Permanent damage to the ear or to the hearing is very rare. What are the symptoms? Your child's ear is painful because trapped, infected fluid puts pressure on the eardrum, causing itto bulge. Other symptoms are irritability and poor sleep. Some children have trouble hearing. A few have dizziness. If the eardrum ruptures (tears), cloudy fluid or pus will drain from the ear canal. How can I take care of my child? Antibiotics (For mild ear infections, antibiotics may not be needed.) Your child needs the antibiotic prescribed by your healthcare provider. This medicine will kill the bacteria that are causing the ear infection. Try not to forget any of the doses. If your child goes to school or a social services designee, arrange for someone to give the afternoon dose. If the medicine is a liquid, store the antibiotic in the refrigerator and use a measuring spoon to be sure that you give the right amount. Give the medicine until the bottle is empty or all the pills are gone. (Do not save the antibiotic for the next illness because it loses its strength.) Even though your child will feel better in a few days, give the antibiotic until it is completely gone. Finishing the medicine will keep the ear infection from flaring upagain. Pain relief Acetaminophen or ibuprofen can be used to help with the earache or fever over 102?F (39?C) for a few days until the antibiotic takes effect. These medicines usually control the pain within 1 to 2 hours. Earaches tend to hurt more at bedtime. To help ease the pain, you can put a cold pack or ice wrapped in a wet washcloth over the ear. This may decrease the swelling and pressure inside. Some providers recommend a heating pad or warm, moist washcloth instead. Remove the cold or heat in 20 minutes to prevent frostbite or a burn. Restrictions Your child can go outside and does not need to cover the ears. Swimming is okay as longas there is no perforation (tear) in the eardrum or drainage from the ear. Children with ear infections can travel safely by aircraft if they are taking antibiotics. Also give them a dose of ibuprofen 1 hour before take-off for any discomfort they might have. Most will not have an increase in their ear pain while flying. While coming down in elevation during a airline flight or a trip from the mountains, have your child swallow fluids, suck on a pacifier, or chew gum. Your child can return to schoolor day care when he or she is feeling better and the fever is gone. Ear infections are not contagious. Ear recheck Your child should be seen by the healthcare provider in 2 to 3?weeks. At that visit, theeardrum will be checked to make sure that the infection is cleared up and no more treatment is needed. Your healthcare provider may also want to test your child's hearing. Follow-up exams are very important, particularly if the infection has caused a hole in the eardrum. How can I help prevent ear infections? If your child has a lot of ear infections, it's time to look at how you can prevent some of them. The following list includes ways you can help your child prevent another ear infection. If some of the following items apply to your child, try to use them or talk to your healthcare provider about them. Protect your child from second-hand tobacco smoke. Passive smoking increases the frequency and severity of infections. Be sure no one smokes in your home or at day care. Reduce your child's exposure to colds during the first year of life. Most ear infections start with a cold. Try to delay the use of large day care centers during the first year by using a sitter in your home or a small home-based day care. Breast-feed your baby during the first 6 to 12 months of life. Antibodies in breast milk reduce the rate of ear infections. If you're breast-feeding, continue. If you're not, consider it with your nextchild. Avoid bottle propping. If you bottle-feed, hold your baby at a 45? angle. Feeding in the horizontal position can cause formula and other fluids to flow back into the eustachian tube. Allowing an infantto hold his own bottle also can cause milk to drain into the middle ear. Weaning your baby from a bottle between 9 and 12 months of age will help stop this problem. Control allergies. If your infant always has a runny nose, a milk allergy may be the problem. This is more likely if your child has other allergies such as eczema. Check the adenoids. If your toddler constantly snores or breaths through his mouth, he may have large adenoids. Large adenoids can lead to ear infections. Talk to your healthcare provider about this. When should I call my child's healthcare provider? Call IMMEDIATELY if: Your child develops a stiff neck. Your child acts very sick. Call during office hours if: The fever or pain is not gone after your child has taken the antibiotic for 48 hours. You have other questions or concerns. Published by [employer]. This content is reviewed periodically and is subject to change as new health information becomes available. The information is intended to inform and educate and is not a replacement for medical evaluation, advice, diagnosis or treatment by a healthcare professional. Written by Lucero Singleton MD, author of Your Child's Health, [employer]). ? 2009 [facility] and/or its affiliates. All Rights Reserved. Copyright ?? [employer] 2011 TENDER documented in this encounter Progress Notes Sarah Watson PA-C - 11/01/2012 11:44 AM CST Images from the original note were not included. SUBJECTIVE: Nikkie Broussard is a 12 year old female who presents with the following concerns; Symptoms: cc Present Absent Comment Fever/Chills x Fatigue x Muscle Aches x Was skating hockey Eye Irritation x Sneezing x Nasal Josh/Drg x Sinus Pressure/Pain x Loss of smell x Dental pain x Sore Throat x A little Swollen Glands x Ear Pain/Fullness x Cough x Wheeze x Chest Pain x Shortness of breath x Rash Other Symptom duration: Sympom severity: Treatments tried: Contacts: Medications updated and reviewed. Past, family and surgical history is updated and reviewed in the record. ROS: Other than noted above, general, HEENT, respiratory, cardiac and gastrointestinal systems are negative. OBJECTIVE: GENERAL: Alert, no acute distress EYES: PERRL, EOM normal, conjunctiva and lids normal HEENT: right TM normal, left TM erythematous, oral mucous membranes moist RESP: Lungs clear to auscultation. CV: normal rate, regular rhythm, no murmur or gallop. Assessment: Pharyngitis (primary encounter diagnosis) Comment: Plan: Strep, Rapid Screen, Beta strep group A culture Acute otitis media Comment: Plan: amoxicillin (AMOXIL) 500 MG capsule Patient Instructions Pharyngitis (primary encounter diagnosis) Comment: Plan: Strep, Rapid Screen, Beta strep group A culture Acute otitis media Comment: Plan: amoxicillin (AMOXIL) 500 MG capsule The patient is advised to push fluids, rest, use acetaminophen, ibuprofen as needed and Return office visit if symptoms persist or worsen. Ear Infection (Otitis Media) What is an ear infection? An ear infection is an infection of the middle ear (the space behind the eardrum). It is most often caused by bacteria. It usually is a complication of a cold and starts on the third day of the cold. Acold blocks off the tube that connects the middle ear to the back of the throat (the eustachian tube). Most children will have at least one ear infection, and over one fourth of these children will have repeated ear infections. Children are most likely to have ear infections between the ages of 6?monthsand 2?years, but they continue to be a common childhood illness until the age of 8?years. In 5% to 10% of children, the pressure in the middle ear causes the eardrum to rupture and drain a yellow or cloudy fluid. This small hole usually heals over the next few days. If the following treatment is carried out your child should be fine. Permanent damage to the ear or to the hearing is very rare. What are the symptoms? Your child's ear is painful because trapped, infected fluid puts pressure on the eardrum, causing itto bulge. Other symptoms are irritability and poor sleep. Some children have trouble hearing. A few have dizziness. If the eardrum ruptures (tears), cloudy fluid or pus will drain from the ear canal. How can I take care of my child? Antibiotics (For mild ear infections, antibiotics may not be needed.) Your child needs the antibiotic prescribed by your healthcare provider. This medicine will kill the bacteria that are causing the ear infection. Try not to forget any of the doses. If your child goes to school or a social services designee, arrange for someone to give the afternoon dose. If the medicine is a liquid, store the antibiotic in the refrigerator and use a measuring spoon to be sure that you give the right amount. Give the medicine until the bottle is empty or all the pills are gone. (Do not save the antibiotic for the next illness because it loses its strength.) Even though your child will feel better in a few days, give the antibiotic until it is completely gone. Finishing the medicine will keep the ear infection from flaring upagain. Pain relief Acetaminophen or ibuprofen can be used to help with the earache or fever over 102?F (39?C) for a few days until the antibiotic takes effect. These medicines usually control the pain within 1 to 2 hours. Earaches tend to hurt more at bedtime. To help ease the pain, you can put a cold pack or ice wrapped in a wet washcloth over the ear. This may decrease the swelling and pressure inside. Some providers recommend a heating pad or warm, moist washcloth instead. Remove the cold or heat in 20 minutes to prevent frostbite or a burn. Restrictions Your child can go outside and does not need to cover the ears. Swimming is okay as longas there is no perforation (tear) in the eardrum or drainage from the ear. Children with ear infections can travel safely by aircraft if they are taking antibiotics. Also give them a dose of ibuprofen 1 hour before take-off for any discomfort they might have. Most will not have an increase in their ear pain while flying. While coming down in elevation during a airline flight or a trip from the mountains, have your child swallow fluids, suck on a pacifier, or chew gum. Your child can return to schoolor day care when he or she is feeling better and the fever is gone. Ear infections are not contagious. Ear recheck Your child should be seen by the healthcare provider in 2 to 3?weeks. At that visit, theeardrum will be checked to make sure that the infection is cleared up and no more treatment is needed. Your healthcare provider may also want to test your child's hearing. Follow-up exams are very important, particularly if the infection has caused a hole in the eardrum. How can I help prevent ear infections? If your child has a lot of ear infections, it's time to look at how you can prevent some of them. The following list includes ways you can help your child prevent another ear infection. If some of the following items apply to your child, try to use them or talk to your healthcare provider about them. Protect your child from second-hand tobacco smoke. Passive smoking increases the frequency and severity of infections. Be sure no one smokes in your home or at day care. Reduce your child's exposure to colds during the first year of life. Most ear infections start with a cold. Try to delay the use of large day care centers during the first year by using a sitter in your home or a small home-based day care. Breast-feed your baby during the first 6 to 12 months of life. Antibodies in breast milk reduce the rate of ear infections. If you're breast-feeding, continue. If you're not, consider it with your nextchild. Avoid bottle propping. If you bottle-feed, hold your baby at a 45? angle. Feeding in the horizontal position can cause formula and other fluids to flow back into the eustachian tube. Allowing an infantto hold his own bottle also can cause milk to drain into the middle ear. Weaning your baby from a bottle between 9 and 12 months of age will help stop this problem. Control allergies. If your infant always has a runny nose, a milk allergy may be the problem. This is more likely if your child has other allergies such as eczema. Check the adenoids. If your toddler constantly snores or breaths through his mouth, he may have large adenoids. Large adenoids can lead to ear infections. Talk to your healthcare provider about this. When should I call my child's healthcare provider? Call IMMEDIATELY if: Your child develops a stiff neck. Your child acts very sick. Call during office hours if: The fever or pain is not gone after your child has taken the antibiotic for 48 hours. You have other questions or concerns. Published by [employer]. This content is reviewed periodically and is subject to change as new health information becomes available. The information is intended to inform and educate and is not a replacement for medical evaluation, advice, diagnosis or treatment by a healthcare professional. Written by Lucero Singleton MD, author of Your Child's Health, [employer]. ? 2009 [employer] and/or its affiliates. All Rights Reserved. Copyright ?? [employer] Reference Systems 2010 TENDER documented in this encounter Nursing Notes 11/01/2012 11:30 AM CST >> USMAN Mathis Nov 01, 2012 11:48 AM Patient presents with: Ear Problem - left ear pain, Initial BP 90/60 Pulse 83 Temp(Src) 98.4 ??F (36.9 ??C) (Oral) Ht 4' 6 (1.372 m) Wt 71 lb (32.205 kg) BMI 17.12 kg/m2 SpO2 99% Estimated Body mass index is 17.12 kg/(m^2) as calculated from the following: Height as of this encounter: 4' 6(1.372 m). Weight as of this encounter: 71 lb(32.205 kg).. BP completed using cuff size: pediatric Usman Del Valle CARDIOLOGY MANAGER documented in this encounter Plan of Treatment Not on filedocumented as of this encounter Procedures Procedure Name Priority Date/Time Associated Diagnosis Comme nts RAPID STREP SCREEN Routine 11/01/2012 11:58 AM Pharyngitis Re sults for this THROAT SWAB PUMP TENDER procedure are i n the results section. BETA HEMOLYTIC Routine 11/01/2012 11:58 AM Pharyngitis Result s for this STREP GROUP A PUMP TENDER procedure are in CULTURE the results section. documented in this encounter Results Beta strep group A culture (11/01/2012 11:58 AM PUMP TENDER) Component Value Ref Test Analysis Performed At [facility] Method Time Signature Specimen Throat [facility] Culture Micro No Beta PRINCETON Streptococcus [facility] Micro Report FINAL 11/03/2012 [facility] Specimen Anatomical Collection Method Collection Time Receive d Time (Source) Location / / Volume Laterality Specimen from 11/01/2012 11:58 11/01/2012 throat AM PUMP TENDER 11:59 AM PUMP TENDER (specimen) Sarah Watson PA-C LAB - MICRO GENERAL OR DERABLES Performing Organization Address City/[facility] Code Phon e Number [facility] [id number] [place] [address] [facility] Strep, Rapid Screen (11/01/2012 11:58 AM PUMP TENDER) Component Value Ref Test Analysis Performed At [facility] Method Time Signature Specimen Throat [facility] Rapid Strep A NEGATIVE: No Group A strepto coccal antigen detected by immunoassay, await PRINCETON Screen culture report. [facility] Micro Report FINAL 11/01/2012 [facility] Specimen Anatomical Collection Method Collection Time Receive d Time (Source) Location / / Volume Laterality Specimen from 11/01/2012 11:58 11/01/2012 throat AM PUMP TENDER 11:59 AM PUMP TENDER (specimen) Sarah Watson PA-C LAB - MICRO GENERAL OR DERABLES Performing Organization Address City/[facility] Phon e Number [facility] [id number] [place] [address] [facility] documented in this encounter Visit Diagnoses Diagnosis Pharyngitis - Primary Acute pharyngitis Acute otitis media Unspecified otitis media documented in this encounter Care Teams Testing Manager Relationship Specialty Start Date End Date Renetta Kramer MD PCP - General Family Practice 04/21/12 06/10/[address] [id number] documented as of this encounter
--- OUTSIDE RECORDS SUMMARY | 2022-06-02 10:06 | XMS_ITS | Encounter Summary ---
:2000 Author Organization [facility] Address [address] [place] [address]. [place] [address] Care Team Providers Name Role Phone Brown Sung PA-C Primary Care Provider [phone] Reason for Visit Reason Comments Well Child Flu Shot Encounter Details Date Type Department Care Team Description 07/29/2016 Office Visit [facility] Audrey Andrade Need f or prophylactic [facility] [place] [facility] [place] vaccination and [address] inoculation against [place], [place] influenza (Pr imary Dx) [phone] Social History Tobacco Use Types Packs/Day Years Used Date Never Smoker Smokeless Tobacco: Never Used Alcohol Use Standard Drinks/Week Comments No 0 (1 standard drink = 0.6 oz pure alcoho l) Sex Assigned at Date Recorded Not on file documented as of this encounter Last Filed Vital Signs Vital Sign Reading Time Taken Comments Blood Pressure 110/60 07/29/2016 11:09 AM CDT Pulse 65 07/29/2016 11:09 AM CDT Temperature 36.6 ??C (97.9 ??F) 07/29/2016 11:09 AM CDT Respiratory Rate - - Oxygen Saturation 99% 07/29/2016 11:09 AM CDT Inhaled Oxygen Concentration - - Weight 46 kg (101 lb 8 oz) 07/29/2016 11:09 AM CDT Height 160 cm (5' 3) 07/29/2016 11:09 AM CDT Body Mass Index 17.98 07/29/2016 11:09 AM CDT Body Mass Index Percentile 30.80 % 07/29/2016 11:09 AM C DT Growth Chart: [facility] (Girls, 2-20 Years) documented in this encounter Patient Instructions Patient InstructionsKaren Ferguson Bianka - 07/29/2016 11:01 AM CDT Preventive Care at the 12 - 14 Year Visit Growth Percentiles & Measurements Weight: 0 lbs 0 oz / Patient actual weight not available. / No weight on file for this encounter. Length: Data Unavailable / 0 cm No height on file for this encounter. BMI: There is no height or weight on file to calculate BMI. No unique date with height and weight onfile. Blood Pressure: No blood pressure reading on file for this encounter. Next Visit ??? Continue to see your health care provider every one to two years for preventive care. Nutrition ??? It???s very important to eat breakfast. This will help you make it through the morning. ??? Sit down with your family for a meal on a regular basis. ??? Eat healthy meals and snacks, including fruits and vegetables. Avoid salty and sugary snack foods. ??? Be sure to eat foods that are high in calcium and iron. ??? Avoid or limit caffeine (often found in soda pop). Sleeping ??? Your body needs about 9 hours of sleep each night. ??? Keep screens (TV, computer, and video) out of the bedroom / sleeping area. They can lead to poorsleep habits and increased obesity. Health ??? Limit TV, computer and video time to one to two hours per day. ??? Set a goal to be physically fit. Do some form of exercise every day. It can be an active sport like skating, running, swimming, team sports, etc. ??? Try to get 30 to 60 minutes of exercise at least three times a week. ??? Make healthy choices: don???t smoke or drink alcohol; don???t use drugs. In your teen years, you can expect . . . ??? To develop or strengthen hobbies. ??? To build strong friendships. ??? To be more responsible for yourself and your actions. ??? To be more independent. ??? To use words that best express your thoughts and feelings. ??? To develop self-confidence and a sense of self. ??? To see big differences in how you and your friends grow and develop. ??? To have body odor from perspiration (sweating). Use underarm deodorant each day. ??? To have some acne, sometimes or all the time. (Talk with your doctor or nurse about this.) ??? Girls will usually begin puberty about two years before boys. o Girls will develop breasts and pubic hair. They will also start their menstrual periods. o Boys will develop a larger penis and testicles, as well as pubic hair. Their voices will change, and they???ll start to have ???wet dreams.?? Sexuality ??? It is normal to have sexual feelings. ??? Find a supportive person who can answer questions about puberty, sexual development, sex, abstinence (choosing not to have sex), sexually transmitted diseases (STDs) and control. ??? Think about how you can say no to sex. Safety ??? Accidents are the greatest threat to your health and life. ??? Always wear a seat belt in the car. ??? Practice a fire escape plan at home. Check smoke detector batteries twice a year. ??? Keep electric items (like blow dryers, razors, curling irons, etc.) away from water. ??? Wear a helmet and other protective gear when bike riding, skating, skateboarding, etc. ??? Use sunscreen to reduce your risk of skin cancer. ??? Learn first aid and CPR (cardiopulmonary resuscitation). ??? Avoid dangerous behaviors and situations. For example, never get in a car if the package car driver has beendrinking or using drugs. ??? Avoid peers who try to pressure you into risky activities. ??? Learn skills to manage stress, anger and conflict. ??? Do not use or carry any kind of weapon. ??? Find a supportive person (teacher, parent, health provider, counselor) whom you can talk to whenyou feel sad, angry, lonely or like hurting yourself. ??? Find help if you are being abused physically or sexually, or if you fear being hurt by others. As a teenager, you will be given more responsibility for your health and health care decisions. While your parent or guardian still has an important role, you will likely start spending some time alonewith your health care provider as you get older. Some teen health issues are actually considered confidential, and are protected by law. Your health care team will discuss this and what it means with you. Our goal is for you to become comfortable and confident caring for your own health. documented in this encounter Progress Notes Karen Ferguson - 07/29/2016 12:26 PM CDT Injectable Influenza Immunization Documentation 1. Is the person to be vaccinated sick today? No 2. Does the person to be vaccinated have an allergy to eggs or to a component of the vaccine? No 3. Has the person to be vaccinated today ever had a serious reaction to influenza vaccine in the past? No 4. Has the person to be vaccinated ever had Guillain-Axson syndrome? No Form completed by DORINA Maria Audrey Andrade MD - 07/29/2016 11:01 AM CDT SUBJECTIVE: Nikkie Broussard is a 15 year old female, here for a routine health maintenance visit, accompanied by her father. Patient was roomed by: DORINA Maria Do you have any forms to be completed? YES SOCIAL HISTORY Family members in house: mother, father, sister and brother Language(s) spoken at home: Slovak Recent family changes/social stressors: none noted SAFETY/HEALTH RISKS TB exposure: No Cardiac risk assessment: none Do you monitor your child's screen use? NO VISION Wears contact lenses: worn for testing Question Validity: no Right eye: 20/10 Left eye: 20/10 Vision Assessment: normal HEARING Right Ear: 500 Hz: RESPONSE- on Level: 20 db 1000 Hz: RESPONSE- on Level: 20 db 2000 Hz: RESPONSE- on Level: 20 db 4000 Hz: RESPONSE- on Level: 20 db Left Ear: 500 Hz: RESPONSE- on Level: 20 db 1000 Hz: RESPONSE- on Level: 20 db 2000 Hz: RESPONSE- on Level: 20 db 4000 Hz: RESPONSE- on Level: 20 db Question Validity: no Hearing Assessment: normal DENTAL Dental health HIGH risk factors: child has or had a cavity Water source: city water and FILTERED WATER SPORTS QUESTIONNAIRE: School: [employer] Grade: 8th Sports: Hockey 1. no - Has a doctor ever denied or restricted your participation in sports for any reason or told you to give up sports? 2. no - Do you have an ongoing medical condition (like diabetes,asthma, anemia, infections)? 3. no - Are you currently taking any prescription or nonprescription ([id number]) medicines orpills? 4. no - Do you have allergies to medicines, pollens, foods or stinging insects? 5. yes - Have you ever spent a night in a hospital? Age 8, neck injury 6. no - Have you ever had [...] ever ordered a test for your heart? (example, ECG/EKG, Echocardiogram, stress test) 13. no -Do you get [...] unexplained drowning, unexplained car accident or sudden infant syndrome)? 17. no - Does anyone in your family have hypertrophic cardiomyopathy, Marfan syndrome, arrhythmogenic right ventricular cardiomyopathy, long QT syndrome, short QT syndrome, Brugada syndrome, or catecholaminergic polymorphic ventricular tachycardia? 18. no - Does anyone in your family have a heart problem, pacemaker, or implanted defibrillator? 19.no- Has anyone in your family had an unexplained fainting, unexplained seizures, or near drowning? 20. yes - Have you ever had an injury, like a sprain, muscle or ligament tear or tendonitis, that caused you to miss a practice or game? 21. yes - Have you had any broken or fractured bones, or dislocated joints? Last year, right wrist 22. yes - Have you had an injury that required x-rays, MRI, CT, surgery, injections, therapy, a brace, a cast, or crutches? 23. no - Have you ever had a stress fracture? 24. no - Have you ever been told that you have or have you had an x-ray for neck instability or atlantoaxial instability? (Down syndrome or dwarfism) 25. no - Do you regularly use a brace, orthotics or other assistive device? 26. no -Do you have a bone, muscle or joint injury that bothers you ? 27. no- Do any of your joints become painful, swollen, feel warm or look red? 28. no- Do you have a history of juvenile arthritis or connective tissue disease? 29. yes - Has a doctor ever told you that you have asthma or allergies? 30. no - Do you cough, wheeze, have chest tightness, or have difficulty breathing during or after exercise? 31. yes - Is there anyone in your family who has asthma? 32. yes - Have you ever used an inhaler or taken asthma medicine? Childhood, no longer uses inhaler,no SOB or wheezing 33. no - Do you develop a rash or hives when you exercise? 34. no - Were you born without or are you missing a kidney, an eye, a testicle (males), or any otherorgan? 35. no- Do you have groin pain [...] Do you have headaches with exercise? 43. no - Have you ever had numbness, tingling or weakness in your arms or legs after being hit or falling? 44. no - Have you ever been unable to move your arms or legs after being hit or falling? 45. no - Have you ever become ill when exercising in the heat? 46. no -Do you get frequent muscle cramps when exercising? 47. no - Do you or someone in your family have sickle cell trait or disease? 48. no - Have you had any problems with your eyes or vision? 49. no- Have you had any eye injuries? 50. yes - Do you wear glasses or contact lenses? 51. no - Do you wear protective [...] when you had your first menstrual period? [age]. How many menstrual periods have you had in the last year? 5 PROBLEM LIST Patient Active Problem List Diagnosis ??? Childhood asthma ??? Closed nondisplaced fracture of styloid process of right ulna ??? Closed traumatic nondisplaced metaphyseal torus fracture of distal end of right radius MEDICATIONS No current outpatient prescriptions on file. ALLERGY No Known Allergies IMMUNIZATIONS Immunization History Administered Date(s) Administered ? ? DTAP (<7y) 2002, 01/09/2003, 04/18/2003, 08/26/2004, 08/18/2007 ??? HIB 2002, 01/09/2003, 04/18/2003, 08/24/2003 ??? Hepatitis A 05/12/2012, 06/28/2014 ??? Hepatitis B 2002, 2002, 08/24/2003 ??? Human Papilloma Virus 06/28/2014 ??? IPV 2002, 01/09/2003, 04/18/2003, 08/18/2007 ??? Influenza (IIV3) 08/18/2007, 2012 ??? MMR 12/10/2003, 08/18/2007 ??? Meningococcal (Menactra??) 06/28/2014 ??? Pneumococcal (PCV 7) 08/24/2003, 12/10/2003 ??? TDAP (BOOSTRIX AGES 10-64) 06/28/2014 ??? Varicella 08/24/2003, 08/18/2007 HEALTH HISTORY SINCE LAST VISIT Broken arm in 2 places. No surgery needed HOME No concerns EDUCATION School: [employer] Grade: 8th Concerns: no SAFETY Car seat belt always worn: Yes Helmet worn for bicycle/roller blades/skateboard? Not applicable Guns/firearms in the home: No No safety concerns ACTIVITIES Do you get at least 60 minutes per day of physical activity, including time in and out of school: Yes Organized / team sports: hockey ELECTRONIC MEDIA < 2 hours/ day DIET Do you get at least 4 helpings of a fruit or vegetable every day: Yes How many servings of juice, non-diet soda, punch or sports drinks per day: 0-1 QUESTIONS/CONCERNS: None SLEEP No concerns, sleeps well through night DRUGS Smoking: no Passive smoke exposure: no Alcohol: no Drugs: no SEXUALITY Sexual activity: No PSYCHO-SOCIAL/DEPRESSION General screening: Pediatric Symptom Checklist-Youth PASS (score 4--<30 pass), no followup necessary No concerns ROS GENERAL: See health history, nutrition and daily activities SKIN: No rash, hives or significant lesions HEENT: Hearing/vision: see above. No eye, nasal, ear symptoms. RESP: No cough or other concerns CV: No concerns GI: See nutrition and elimination. No concerns. : See elimination. No concerns NEURO: No headaches or concerns. OBJECTIVE: EXAM There were no vitals taken for this visit. No height on file for this encounter. No weight on file for this encounter. No unique date with height and weight on file. No blood pressure reading on file for this encounter. GENERAL: Active, alert, in no acute distress. SKIN: Clear. No significant rash, abnormal pigmentation or lesions HEAD: Normocephalic EYES: Pupils equal, round, reactive, Extraocular muscles intact. [...] EXTREMITIES: Full range of motion, no deformities : Exam deferred. SPORTS EXAM: Shoulder: normal Elbow: normal Hand/Wrist: normal Back: normal Quad/Ham: normal Knee: normal Ankle/Feet: normal Heel/Toe: normal Duck walk: normal ASSESSMENT/PLAN: 1. Need for prophylactic vaccination and inoculation against influenza - PURE TONE HEARING TEST, AIR - SCREENING, VISUAL ACUITY, QUANTITATIVE, BILAT - BEHAVIORAL / EMOTIONAL ASSESSMENT [07196] - FLU VAC, SPLIT VIRUS IM > 3 YO (QUADRIVALENT) [51540] - Vaccine Administration, Initial [31214] - HUMAN PAPILLOMA VIRUS (GARDASIL 9) VACCINE Anticipatory Guidance Reviewed Anticipatory Guidance in patient instructions Preventive Care Plan Immunizations ?? See orders in EpicCare. I reviewed the signs and symptoms of adverse effects and when to seek medical care if they should arise. Referrals/Ongoing Specialty care: No See other orders in EpicCare. Cleared for sports: Yes BMI at No unique date with height and weight on file. No weight concerns. Dental visit recommended: Yes FOLLOW-UP: in 1-2 year for a Preventive Care visit Resources HPV and Cancer Prevention: What Parents Should Know What Kids Should Know About HPV and Cancer Goal Tracker: Be More Active Goal Tracker: Less Screen Time Goal Tracker: Drink More Water Goal Tracker: Eat More Fruits and Veggies Audrey Andrade MD [facility] documented in this encounter Nursing Notes Karen Ferguson - 07/29/2016 11:11 AM CDT Chief Complaint Patient presents with ??? Well Child Initial BP 110/60 mmHg Pulse 65 Temp(Src) 97.9 ??F (36.6 ??C) (Oral) Ht 5' 3 (1.6 m) Wt 101lb 8 oz (46.04 kg) BMI 17.98 kg/m2 SpO2 99% LMP 07/22/2016 (Exact Date) ? No Estimated body mass index is 17.98 kg/(m^2) as calculated from the following: Height as of this encounter: 5' 3 (1.6 m). Weight as of this encounter: 101 lb 8 oz (46.04 kg). BP completed using cuff size: regular right arm DORINA Maria documented in this encounter Plan of Treatment Not on filedocumented as of this encounter Procedures Procedure Name Priority Date/Time Associated Diagnosis Comme nts HC SCREENING TEST, Routine 07/29/2016 12:26 Need for prophylac tic PURE TONE, AIR ONLY PM CDT vaccination and inoculation against influenza DIAGNOSTIC 07/29/2016 12:00 (NON-INVASIVE) AM CDT RESULT - HIM SCAN HC BEHAV ASSMT Routine 07/29/2016 Need for prophylactic Resu lts for this W/SCORE & vaccination and procedure ar e in DOCD/STAND inoculation against the resu lts INSTRUMENT influenza section. documented in this encounter Results DIAGNOSTIC (NON-INVASIVE) RESULT - HIM SCAN (07/29/2016 12:00 AM CDT) Specimen (Source) Anatomical Location Collection Method / Collectio n Time Received Time / Laterality Volume 07/29/2016 Narrative This result has an attachment that is no t available. Provider Outside OTHER BEHAVIORAL / EMOTIONAL ASSESSMENT [03102] (07/29/2016) P athologist Signature [facility] 4 SYMPTOM CHECK LIST - 35 (Y PSC ? 35) Audrey Andrade MD OTHER documented in this encounter Visit Diagnoses Diagnosis Need for prophylactic vaccination and in oculation against influenza - Primary documented in this encounter Care Teams Aircraft Sales Representative Relationship Specialty Start Date End Date Brown Sung, PCP - General Physician Substitute Bus Driver - 12/26/15 05/19/21 PA-C Medical documented as of this encounter
--- OUTSIDE RECORDS SUMMARY | 2022-06-02 10:06 | XMS_ITS | Encounter Summary ---
:2000 Author Organization [facility] Address [address] [place] [address] Care Team Providers Name Role Phone Brown Sung PA-C Primary Care Provider [phone] Reason for Visit Reason Comments Pharyngitis Encounter Details Date Type Department Care Team Description 12/26/2015 Office Visit [facility] Brown Sung Upper respiratory tract infection, unspecified upper respiratory infection (Primary Dx); Clinic [facility] BUD Panda Acute pharyngitis, unspecified etiology [id number] [address] [address] [facility], [address] [place], [place] [address] [place] [address] (Wo rk) [address] [phone] Social History Tobacco Use Types Packs/Day Years Used Date Never Smoker Smokeless Tobacco: Never Used Alcohol Use Standard Drinks/Week Comments No 0 (1 standard drink = 0.6 oz pure alcoho l) Sex Assigned at Date Recorded Not on file documented as of this encounter Last Filed Vital Signs Vital Sign Reading Time Taken Comments Blood Pressure 94/62 12/26/2015 1:05 PM DOUGH SHEETER Pulse 100 12/26/2015 1:05 PM DOUGH SHEETER Temperature 36.9 ??C (98.4 ??F) 12/26/2015 1:05 PM DOUGH SHEETER Respiratory Rate 20 12/26/2015 1:05 PM DOUGH SHEETER Oxygen Saturation - - Inhaled Oxygen Concentration - - Weight 44 kg (97 lb) 12/26/2015 1:05 PM DOUGH SHEETER Height 158.8 cm (5' 2.5) 12/26/2015 1:05 PM DOUGH SHEETER Body Mass Index 17.46 12/26/2015 1:05 PM DOUGH SHEETER Body Mass Index Percentile 28.04 % 12/26/2015 1:05 PM CS T Growth Chart: [facility][NOTE 3] (Girls, 2-20 Years) documented in this encounter Progress Notes Brown Sung PA-C - 12/26/2015 1:00 PM CST HPI SUBJECTIVE: Nikkie Broussard is a 15 year old female who presents to clinic today with father because of: Chief Complaint Patient presents with ??? Pharyngitis HPI: ENT/Cough Symptoms Problem started: 2 days ago Fever: Yes - Highest temperature: 100.1 Ear Runny nose: no Congestion: YES Sore Throat: YES Cough: no Eye discharge/redness: no Ear Pain: YES- right ear Wheeze: no Sick contacts: School; Strep exposure: School; Therapies Tried: Ibuprofen ROS: Negative for constitutional, eye, ear, nose, throat, skin, respiratory, cardiac, and gastrointestinal other than those outlined in the HPI. PROBLEM LIST: Patient Active Problem List Diagnosis Date Noted ??? Closed nondisplaced fracture of styloid process of right ulna 11/19/2015 Priority: Medium ??? Closed traumatic nondisplaced metaphyseal torus fracture of distal end of right radius 11/19/2015 Priority: Medium ??? Childhood asthma Priority: Medium MEDICATIONS: Current Outpatient Prescriptions Medication Sig Dispense Refill ??? order for DME Equipment being ordered: right wrist brace. ALLERGIES: No Known Allergies Problem list and histories reviewed & adjusted, as indicated. OBJECTIVE: There were no vitals taken for this visit. No blood pressure reading on file for this encounter. GENERAL: Active, alert, in no acute distress. SKIN: Clear. No significant rash, abnormal pigmentation or lesions HEAD: Normocephalic. EYES: No discharge or erythema. Normal pupils and EOM. EARS: Normal canals. Tympanic membranes are normal; smith and translucent. NOSE: Normal without discharge. MOUTH/THROAT: mild erythema NECK: Supple, no masses. LYMPH NODES: No adenopathy LUNGS: Clear. No rales, rhonchi, wheezing or retractions HEART: Regular rhythm. Normal S1/S2. No murmurs. DIAGNOSTICS: Results for orders placed or performed in visit on 12/26/15 (from the past 24 hour(s)) Strep, Rapid Screen Result Value Ref Range Specimen Description Throat Rapid Strep A Screen NEGATIVE: No Group A streptococcal antigen detected by immunoassay, await culture report. Micro Report Status FINAL 12/26/2015 Influenza A/B antigen Result Value Ref Range Influenza A/B Agn Specimen Nasal Influenza A NEG Negative Test results must be correlated with clinical data. If necessary, results should be confirmed by a molecular assay or viral culture. Influenza B NEG Negative Test results must be correlated with clinical data. If necessary, results should be confirmed by a molecular assay or viral culture. ASSESSMENT/PLAN: 1. Upper respiratory tract infection, unspecified upper respiratory infection -Recommended supportive cares including warm salt water gargles, Tylenol/Ibuprofen as directed OTC, rest, humidifier. Follow-up in 2-3 days if symptoms are worsening or not improving as expected/discussed. 2. Acute pharyngitis, unspecified etiology - Strep, Rapid Screen - Beta strep group A culture - Influenza A/B antigen FOLLOW UP: If not improving or if worsening Brown Sung PA-C ROS Physical Exam H SHEETER documented in this encounter Nursing Notes Xin Morin MA - 12/26/2015 1:07 PM CST Chief Complaint Patient presents with ??? Pharyngitis Initial BP 94/62 mmHg Pulse 100 Temp(Src) 98.4 ??F (36.9 ??C) (Oral) Resp 20 Ht 5' 2.5 (1.588 m) Wt 97 lb (43.999 kg) BMI 17.45 kg/m2 Estimated body mass index is 17.45 kg/(m^2) as calculated from the following: Height as of this encounter: 5' 2.5 (1.588 m). Weight as of this encounter: 97 lb (43.999 kg). BP completed using cuff size: tino Morin MA H SHEETER documented in this encounter Plan of Treatment Not on filedocumented as of this encounter Procedures Procedure Name Priority Date/Time Associated Diagnosis Comme nts INFLUENZA A/B Routine 12/26/2015 1:30 PM Acute pharyngitis, Re sults for this ANTIGEN DOUGH SHEETER unspecified etiology procedu re are in the results section. RAPID STREP SCREEN Routine 12/26/2015 1:24 PM Acute pharyngiti s, Results for this THROAT SWAB DOUGH SHEETER unspecified etiology procedu re are in the results section. BETA HEMOLYTIC Routine 12/26/2015 1:24 PM Acute pharyngitis, R esults for this STREP GROUP A DOUGH SHEETER unspecified etiology proced ure are in CULTURE the results section. documented in this encounter Results Influenza A/B antigen (12/26/2015 1:30 PM DOUGH SHEETER) [facility] [employer] Method Time Signature Influenza A/B Nasal [facility] Agn Specimen [facility] Influenza A Negative NEG [facility] Test results must be correlated with clinical data. If ne cessary, results CLINICS should be confirmed by a molecular assay or viral culture. [place] Influenza B Negative NEG [facility] Test results must be correlated with clinical data. If ne cessary, results CLINICS should be confirmed by a molecular assay or viral culture. [place] Specimen Anatomical Collection Method Collection Time Receive d Time (Source) Location / / Volume Laterality Swab from nasal 12/26/2015 1:30 PM 2015 1:31 sinus (specimen) DOUGH SHEETER PM DOUGH SHEETER Brown Sung PA-C LAB - MICRO GENERAL ORDERABL ES Performing Organization Address City/[facility]/ZIP Code Phon e Number [facility] [place] [address] Beta strep group A culture (12/26/2015 1:24 PM DOUGH SHEETER) Component Value Ref Test Analysis Performed At [facility] [employer] Range Method Time Signature Specimen Throat [facility] Description [facility] Culture Micro No Beta [facility] Streptococcus [facility] isolated Micro Report FINAL 12/28/2015 [facility] Status [facility] Specimen Anatomical Collection Method Collection Time Receive d Time (Source) Location / / Volume Laterality Specimen from 12/26/2015 1:24 PM 12/26/19 16 1:25 throat DOUGH SHEETER PM DOUGH SHEETER (specimen) Brown Sung PA-C LAB - MICRO GENERAL ORDERABL ES Performing Organization Address City/[facility]/ZIP Code Phon e Number [facility] [address] [place] [address] [facility] [place] [address] Strep, Rapid Screen (12/26/2015 1:24 PM DOUGH SHEETER) Component Value Ref Test Analysis Performed At [facility] Range Method Time Signature Specimen Throat [place] Description [facility] Rapid Strep A NEGATIVE: No Group A strepto coccal antigen detected by immunoassay, await [facility] Screen culture report. [facility] Micro Report FINAL 12/26/2015 [facility] Status [facility] Specimen Anatomical Collection Method Collection Time Receive d Time (Source) Location / / Volume Laterality Specimen from 12/26/2015 1:24 PM 12/26/19 16 1:25 throat DOUGH SHEETER PM DOUGH SHEETER (specimen) Brown Sung PA-C LAB - MICRO GENERAL ORDERABL ES Performing Organization Address City/State/ZIP Code Phon e Number [address] [address] documented in this encounter Visit Diagnoses Diagnosis Upper respiratory tract infection, unspe cified upper respiratory infection - Primary Acute pharyngitis, unspecified etiology documented in this encounter Care Teams Well Tester Relationship Specialty Start Date End Date Brown Sung, PCP - General Physician Crane Assembler - 12/26/15 05/19/21 BUD Medical documented as of this encounter
--- OUTSIDE RECORDS SUMMARY | 2022-06-02 10:06 | XMS_ITS | Encounter Summary ---
:2002 Author Organization [facility] Address [address] [place] [address]. [place] [address] Care Team Providers Name Role Phone Unavailable Primary Care Provider Unavailable Reason for Visit Reason Comments Ear Problem Pharyngitis Encounter Details Date Type Department Care Team Description 09/11/2015 Office Visit [facility] Brown Sung Acute pharyngitis, Clinic [place] Panda PA-C unspecified etiology [place] [address] [facility] [address], [address] [place] [address] [place], [place] [phone] (Wo rk) [address] [phone] Social History Tobacco Use Types Packs/Day Years Used Date Never Smoker Smokeless Tobacco: Never Used Alcohol Use Standard Drinks/Week Comments No 0 (1 standard drink = 0.6 oz pure alcoho l) Sex Assigned at Date Recorded Not on file documented as of this encounter Last Filed Vital Signs Vital Sign Reading Time Taken Comments Blood Pressure 110/80 09/11/2015 11:38 AM APPEALS EXAMINER Pulse 68 09/11/2015 11:38 AM APPEALS EXAMINER Temperature 36.6 ??C (97.8 ??F) 09/11/2015 11:38 AM APPEALS EXAMINER Respiratory Rate 16 09/11/2015 11:38 AM APPEALS EXAMINER Oxygen Saturation 98% 09/11/2015 11:38 AM APPEALS EXAMINER Inhaled Oxygen Concentration - - Weight 39.5 kg (87 lb) 09/11/2015 11:38 AM APPEALS EXAMINER Height 154.9 cm (5' 1) 09/11/2015 11:38 AM APPEALS EXAMINER Body Mass Index 16.44 09/11/2015 11:38 AM APPEALS EXAMINER Body Mass Index Percentile 15.97 % 09/11/2015 11:[address] Growth Chart: [facility] (Girls, 2-20 Years) documented in this encounter Progress Notes Brown Sung PA-C - 09/11/2015 11:32 AM CST HPI SUBJECTIVE: Nikkie Broussard is a 15 year old female who presents to clinic today with father because of: Chief Complaint Patient presents with ??? Ear Problem ??? Pharyngitis HPI: ENT/Cough Symptoms Problem started: 2 days ago Fever: no Runny nose: YES Congestion: YES Sore Throat: YES Cough: YES- occ. Eye discharge/redness: no Ear Pain: YES Wheeze: no Sick contacts: Family member (Parents); Strep exposure: Family member (Parents); Therapies Tried: Ibuprofen ROS: Negative for constitutional, eye, ear, nose, throat, skin, respiratory, cardiac, and gastrointestinal other than those outlined in the HPI. PROBLEM LIST: Patient Active Problem List Diagnosis Date Noted ??? Childhood asthma Priority: Medium MEDICATIONS: No current outpatient prescriptions on file. ALLERGIES: No Known Allergies Problem list and histories reviewed & adjusted, as indicated. OBJECTIVE: There were no vitals taken for this visit. No blood pressure reading on file for this encounter. GENERAL: Active, alert, in no acute distress. SKIN: Clear. No significant rash, abnormal pigmentation or lesions HEAD: Normocephalic. EYES: No discharge or erythema. Normal pupils and EOM. BOTH EARS: clear effusion NOSE: Normal without discharge. MOUTH/THROAT: Clear. No oral lesions. Teeth intact without obvious abnormalities. NECK: Supple, no masses. LYMPH NODES: No adenopathy LUNGS: Clear. No rales, rhonchi, wheezing or retractions HEART: Regular rhythm. Normal S1/S2. No murmurs. DIAGNOSTICS: Results for orders placed or performed in visit on 09/11/15 (from the past 24 hour(s)) Strep, Rapid Screen Result Value Ref Range Specimen Description Throat Rapid Strep A Screen NEGATIVE: No Group A streptococcal antigen detected by immunoassay, await culture report. Micro Report Status FINAL 09/11/2015 ASSESSMENT/PLAN: 1. Acute pharyngitis, unspecified etiology - Strep, Rapid Screen - Beta strep group A culture FOLLOW UP: If not improving or if worsening. Recommended supportive cares including warm salt water gargles, Tylenol/Ibuprofen as directed OTC, rest, humidifier. Follow-up in 2-3 days if symptoms are worsening or not improving as expected/discussed. Brown Sung PA-C ROS Physical Exam ALS EXAMINER documented in this encounter Nursing Notes Xin Morin MA - 09/11/2015 11:41 AM CST Chief Complaint Patient presents with ??? Ear Problem ??? Pharyngitis Initial BP 110/80 mmHg Pulse 68 Temp(Src) 97.8 ??F (36.6 ??C) (Oral) Resp 16 Ht 5' 1 (1.549m) Wt 87 lb (39.463 kg) BMI 16.45 kg/m2 SpO2 98% Estimated body mass index is 16.45 kg/(m^2) as calculated from the following: Height as of this encounter: 5' 1 (1.549 m). Weight as of this encounter: 87 lb (39.463 kg). BP completed using cuff size: small regular Xin Morin MA ALS EXAMINER documented in this encounter Plan of Treatment Not on filedocumented as of this encounter Procedures Procedure Name Priority Date/Time Associated Diagnosis Comme nts RAPID STREP SCREEN Routine 09/11/2015 11:52 AM Acute pharyngit is, Results for this THROAT SWAB APPEALS EXAMINER unspecified etiology procedu re are in the results section. BETA HEMOLYTIC Routine 09/11/2015 11:52 AM Acute pharyngitis, Results for this STREP GROUP A APPEALS EXAMINER unspecified etiology proced ure are in CULTURE the results section. documented in this encounter Results Beta strep group A culture (09/11/2015 11:52 AM APPEALS EXAMINER) Component Value Ref Test Analysis Performed At [facility] Range Method Time Signature Specimen Throat [place] Description [facility] Culture Micro No Beta [place] Streptococcus CLINICS isolated [facility] Micro Report FINAL 09/13/2015 [place] Status [facility] Specimen Anatomical Collection Method Collection Time Receive d Time (Source) Location / / Volume Laterality Specimen from 09/11/2015 11:52 09/11/2015 throat AM APPEALS EXAMINER 11:57 AM APPEALS EXAMINER (specimen) Brown Sung PA-C LAB - MICRO GENERAL ORDERABL ES Performing Organization Address City/[facility]/ZIP Code Phon e Number [address] [address] Strep, Rapid Screen (09/11/2015 11:52 AM APPEALS EXAMINER) Component Value Ref Test Analysis Performed At [facility] Range Method Time Signature Specimen [facility]at [facility] Description [facility] Rapid Strep A NEGATIVE: No Group A strepto coccal antigen detected by immunoassay, await [facility] Screen culture report. [facility] Micro Report FINAL 09/11/2015 [place] Status [facility] Specimen Anatomical Collection Method Collection Time Receive d Time (Source) Location / / Volume Laterality Specimen from 09/11/2015 11:52 09/11/2015 throat AM APPEALS EXAMINER 11:57 AM APPEALS EXAMINER (specimen) Brown Sung PA-C LAB - MICRO GENERAL ORDERABL ES Performing Organization Address City/[facility]/ZIP Code Phon e Number [facility] [id number] [place] [address] documented in this encounter Visit Diagnoses Diagnosis Acute pharyngitis, unspecified etiology - Primary documented in this encounter
--- OUTSIDE RECORDS SUMMARY | 2022-06-02 10:06 | XMS_ITS | Encounter Summary ---
:2002 Author Organization [facility] Address [address] [place] [address] Care Team Providers Name Role Phone Unavailable Primary Care Provider Unavailable Encounter Details Date Type Department Care Team Description 12/10/2015 Radiant Appointment [facility] [place] [facility] ight wrist pain Sports and Marilu, DO Orthopedic Care [facility] [address] [place] [address] [address] [place] [address] [phone] Social History Tobacco Use Types Packs/Day Years [...] nts XR WRIST RT G/E 3 Routine 12/10/2015 3:29 PM Right wrist pain Results for this VW BOARDING MACHINE OPERATOR procedure are i n the results section. documented in this encounter Results XR Wrist Right G/E 3 Views (12/10/2015 3:29 PM BOARDING MACHINE OPERATOR) Anatomical Region Laterality Modality Right Wrist Right Computed Radiography Specimen (Source) Anatomical Location Collection Method / Collectio n Time Received Time / Laterality Volume Impressions 12/25/2015 1:56 PM BOARDING MACHINE OPERATOR RIGHT WRIST, 3 VIEW ordered and interpreted in the office today which shows a metaphyseal buckle fracture of t he distal radius with some interval healing and sclerosis. Fracture at the ulnar styloid remains and looks relatively unchanged from previous image Narrative 12/25/2015 1:56 PM BOARDING MACHINE OPERATOR XR [place] [facility] ORDER SUZI documented in this encounter Visit Diagnoses Diagnosis Right wrist pain Pain in joint, forearm documented in this encounter
--- OUTSIDE RECORDS SUMMARY | 2022-06-02 10:06 | XMS_ITS | Encounter Summary ---
:2002 Author Organization [place] Address [address] [place] [address] Care Team Providers Name Role Phone Renetta Kramer MD Primary Care Provider Reason for Visit Reason Onset Date Comments Refill Request 02/03/2013 albuterol (PROAIR HF A) 108 (90 BASE) MCG/ACT inhaler 2 Inhaler Encounter Details Date Type Department Care Team Description 02/03/2013 Refill [facility] Renetta Kramer MD Refill Request Clinic [facility] (albuterol (PROAIR HFA) [address] [facility] 108 (90 BASE) MCG/ACT [place], [place] [address] [facility] inhaler 2 Inhaler ) [id number] [place], [place] [id number] (Wo rk) Social History Tobacco Use Types Packs/Day Years Used Date Never Smoker Smokeless Tobacco: Never Used Alcohol Use Standard Drinks/Week Comments No 0 (1 standard drink = 0.6 oz pure alcoho l) Sex Assigned at Date Recorded Not on file documented as of this encounter Miscellaneous Notes Telephone Encounter - GarciaKanwal - 02/03/2013 2:29 PM CDT Name of caller: Lauro Relationship to pt: father Reason for call: Lauro is requesting a 90 day supply(three inhalers) of albuterol (PROAIR HFA) 108 (90 BASE) MCG/ACT inhaler to be sent to [facility] in [place] off of [address] and [facility]. This would be cheaper for patient then going thru mail order Best phone number to reach pt at is: [phone] Ok to leave a message with medical info? Pharmacy Information:[facility] in [facility] albuterol (PROAIR HFA) 108 (90 BASE) MCG/ACT inhaler 2 Inhaler 11 09/26/2012 Sig: Inhale 2 puffs intothe lungs 4 times daily as needed for shortness of breath / dyspnea. Class: E-Prescribe Kanwal Garcia Consulting Solution Manager documented in this encounter Plan of Treatment Not on filedocumented as of this encounter Visit Diagnoses Diagnosis Wheezing - Primary documented in this encounter Care Teams Belt Sander Relationship Specialty Start Date End Date Renetta Kramer MD PCP - General Family Practice 04/21/12 06/10/[address] [address] documented as of this encounter
--- OUTSIDE RECORDS SUMMARY | 2022-06-02 10:06 | XMS_ITS | Encounter Summary ---
:2002 Author Organization [facility] Address [address] [place] [address] Care Team Providers Name Role Phone Brown Sung PA-C Primary Care Provider [phone] Encounter Details Date Type Department Care Team Description 12/25/2015 Radiant Appointment [facility] Carrillo Guerin Rad ius fracture; Sports and Orthopedic DO Wes Ulna fracture Care [place] [address] [address] [place], [place] [address] [id number] [place] [address] Social History Tobacco Use Types [...] nts XR WRIST RT G/E 3 Routine 12/25/2015 3:25 PM Radius frac ture Results for this VW SAND BUFFER Ulna fracture procedure are in the results section. documented in this encounter Results XR Wrist Right G/E 3 Views (12/25/2015 3:25 PM SAND BUFFER) Anatomical Region Laterality Modality Right Wrist Right Computed Radiography Specimen (Source) Anatomical Location Collection Method / Collectio n Time Received Time / Laterality Volume Impressions 12/26/2015 8:13 AM SAND BUFFER wrist x-rays (3 views, AP/lateral/oblique) Impression: 1. Nondisplaced transverse metaphyseal/b uckle fracture of the distal radius with minimal dorsal displacement of the distal fragment with interval healing noted compared to previ ous radiographs. 2. Nondisplaced transverse fracture of t he ulnar styloid, unchanged compared to previous radiographs. 3. Negative for subluxation, joint space narrowing, or other acute osseous abnormalities. Narrative 12/26/2015 8:13 AM SAND BUFFER Right Carrillo Guerin DO [facility]G DIAGNOSTIC IMAGING ORDER SUZI documented in this encounter Visit Diagnoses Diagnosis Radius fracture Closed fracture of unspecified part of r adius (alone) Ulna fracture Closed fracture of unspecified part of u scallop raker (alone) documented in this encounter Care Teams Telecommunication Engineer Relationship Specialty Start Date End Date Brown Sung, PCP - General Physician Hands Assembler - 12/26/15 05/19/21 PAJossC Medical documented as of this encounter
--- OUTSIDE RECORDS SUMMARY | 2022-06-02 10:06 | XMS_ITS | Encounter Summary ---
:2000 Author Organization [facility] Address [address] [place] [id number] Care Team Providers Name Role Phone Unavailable Primary Care Provider Unavailable Reason for Visit Reason Comments RECHECK right wrist fracture Encounter Details Date Type Department Care Team Description 11/25/2015 Office Visit [facility] Carrillo Guerin Closed tra umatic nondisplaced metaphyseal torus fracture of distal end of right radius (Primary Dx); [facility] DO Wes Closed nondisplaced fracture of styloid process of right ulna with routine healing, subsequent encounter [place] [address] [id number] [place] [address] Social History Tobacco Use Types Packs/Day Years Used Date Never Smoker Smokeless Tobacco: Never Used Alcohol Use Standard Drinks/Week Comments No 0 (1 standard drink = 0.6 oz pure alcoho l) Sex Assigned at Date Recorded Not on file documented as of this encounter Last Filed Vital Signs Vital Sign Reading Time Taken Comments Blood Pressure 110/70 11/25/2015 9:32 AM BUSINESS CHANGE MANAGER Pulse - - Temperature - - Respiratory Rate - - Oxygen Saturation - - Inhaled Oxygen Concentration - - Weight 39.5 kg (87 lb) 11/25/2015 9:32 AM BUSINESS CHANGE MANAGER Height 154.9 cm (5' 1) 11/25/2015 9:32 AM BUSINESS CHANGE MANAGER Body Mass Index 16.44 11/25/2015 9:32 AM BUSINESS CHANGE MANAGER Body Mass Index Percentile 14.61 % 11/25/2015 9:32 AM CS T Growth Chart: CDC (Girls, 2-20 Years) documented in this encounter Patient Instructions Patient InstructionsDaniel Garcia - 11/25/2015 10:13 AM CST We addressed the following today: 1. Closed nondisplaced transverse/buckle fracture of the right distal radius 2. Closed traumatic nondisplaced transverse fracture of the right ulnar styloid Activity modification as discussed Over the counter medication: Acetaminophen (Tylenol) Other specific instructions: Discontinue splint and initiate short arm cast immobilization for further treatment purposes as discussed Follow up in ~2 weeks for further evaluation/medical care with repeat radiographs to be completed atthat time. Instructed to return to clinic if noted to have increased redness, swelling, numbness, tingling, or weakness present. (sooner if needed; call direct clinic number [[phone]] at any time with questions or concerns) Caring for Your Cast A cast is used to protect an injured body part and allow it to heal by limiting the amount of motionoccurring around the injury. Pain and swelling of the injured area is normal for 48 hours after yourcast is put on. If you have swelling, wiggle your toes or fingers to ease it. Doing so encourages blood flow to your arm or leg. It is important that you keep your cast dry, unless your doctor tells you differently. If the padding of the cast gets wet, your skin may be damaged and become infected. When showering or taking a bath, put the cast in a heavy plastic bag that can be held in place with a rubber band. If your cast getswet and does not dry out in four to five hours, call your doctor???s office. To keep the cast clean, use wash clothes or baby wipes around it. You may experience some itching inside the cast. This is normal. Avoid putting anything in the cast,even your finger, as you can injure your skin and cause infection. Try shaking some talcum powder orblowing cool air from a management department chair into the cast to ease itching. If these signs or symptoms develop, call your doctor immediately. ??? Pain gets worse ??? Swelling that cuts off blood flow that does not go away, even when you lift the body part above the level of your heart ??? Fever after itching. It may be related to an infection. ??? Fluid draining from your skin under the cast Your cast may become loose as swelling goes down. If the cast feels too loose or if it is so loose you can take it off, call your doctor???s office. Your doctor or physical trainer will give you recommendations for activity based on your injury. Some sports allow casts if properly padded by a doctor or physical trainer. For complete healing, your cast should only be removed at the direction of your doctor or clinic staff. A special saw ensures its safe removal and protects the skin and other tissue under the cast. NESS CHANGE MANAGER documented in this encounter Progress Notes Carrillo Guerin DO - 11/25/2015 9:32 AM CST [facility] Visit s Nov 25, 2015 Subjective: Nikkie Broussard is a 15 year old female who is seen today for follow up of a closed nondisplaced transverse/buckle fracture of the right distal radius and closed traumatic nondisplaced transverse fractureof the right ulnar styloid. Patient is accompanied in clinic today by her father. Injury occurred on11/16/2015 (10 days ago). Last visit was on 11/18/2015. Has been in a wrist splint for treatment purposes. Notes 25% overall improvement of symptoms since initial injury. Has not been using any oral painmedications for improvement of symptoms. Has been out of hockey activities since last clinical visit. Notes right ulnar/radial sided wrist pain with intermittent radiation into her right little finger. Symptoms are worse with twisting movements. Denies any weakness of the right upper extremity. Denies any falls/trauma since last clinical visit. Patient's past medical, surgical, social, and family histories are reviewed today in the medical record Objective: BP 110/70 mmHg Ht 5' 1 (1.549 m) Wt [...] the exposed digits MSK: RIGHT WRIST Inspection: Minimal swelling of the right forearm region with resolving ecchymosis of the ulnar side of the forearm Palpation: Tender about the distal radius, distal ulna, and first metacarpal No tenderness over the 2nd-5th metacarpals or MCP, DIP, or PIP joints of the fingers Range of Motion: Finger rotation normal without malrotation Elbow supination/pronation - limited by pain Elbow flexion/extension - normal Strength: Portfolio Mgr strength 5-/5 Special Tests: None Imaging: Previous films were [...] radiographs. 3. Improved soft tissue swelling noted of the volar wrist/forearm region compared to previous radiographs. 4. Negative for subluxation, joint space narrowing, or other acute osseous abnormalities. ASSESSMENT: 1. Closed nondisplaced transverse/buckle fracture of the right distal radius 2. Closed traumatic nondisplaced transverse fracture of the right ulnar styloid PLAN: 1. 1.5 weeks out since initial injury, healing appropriately without complications. 2. Acetaminophen as needed for improved pain control. 3. Activity modification as discussed, including limitation of activities that cause pain/discomfort. Instructed that can return to hockey activities as discussed as tolerated. 4. Initiate short arm cast immobilization for further treatment purposes and discontinue wrist splint immobilization. 5. Follow up in ~2 weeks for further evaluation/medical care with repeat radiographs to be completedat that time. Consider transition to wrist brace with hockey/physical education activities for treatment purposes for 3 weeks at follow-up clinical visit as deemed appropriate. Instructed patient/father to return to clinic if noted to have increased redness, swelling, numbness, tingling, or weakness present. Patient's conditions were thoroughly discussed during today's visit with greater than 50% of the visit spent counseling the patient/father with total time spent [id number] with the patient/father being 15 minutes. Carrillo Guerin DO, [facility] Disclaimer: This note [...] behalf by Daniel Garcia, a trained medical anthropologist. The creationof this record is based on the provider's personal observations and the statements of the patient. This document has been checked and approved by the attending provider. Daniel Garcia 10:02 AM November 25, 2015 NESS CHANGE MANAGER documented in this encounter Nursing Notes Ambrocio Shah ATC - 11/25/2015 11:42 AM CST Chief Complaint Patient presents with ??? RECHECK right wrist fracture Initial BP 110/70 mmHg Ht 5' 1 (1.549 m) Wt 87 lb (39.463 kg) BMI 16.45 kg/m2 Estimated body mass index is 16.45 kg/(m^2) as calculated from the following: Height as of this encounter: 5' 1 (1.549 m). Weight as of this encounter: 87 lb (39.463 kg). BP completed using cuff size: tino Shah ATC/R NESS CHANGE MANAGER documented in this encounter Plan of Treatment Not on filedocumented as of this encounter Procedures Procedure Name Priority Date/Time Associated Diagnosis Comme nts HC APPLY SHORT ARM Routine 11/25/2015 10:52 AM Closed traumati c CAST BUSINESS CHANGE MANAGER nondisplaced metaphyseal torus fracture of distal end of right rad ius Closed nondisplaced fracture of styloid process of right ulna with routine healing, subsequent encounter documented in this encounter Results XR Wrist Right G/E 3 Views (11/25/2015 9:54 AM BUSINESS CHANGE MANAGER) Anatomical Region Laterality Modality Right Wrist Right Computed Radiography Specimen (Source) Anatomical Location Collection Method / Collectio n Time Received Time / Laterality Volume Impressions 11/25/2015 11:07 AM BUSINESS CHANGE MANAGER wrist x-rays (3 views, AP/lateral/oblique) Impression: [...] acute osseous abnormalities. Narrative 11/25/2015 11:07 AM BUSINESS CHANGE MANAGER Right Carrillo Guerin DO [facility] DIAGNOSTIC IMAGING ORDER SUZI documented in this encounter Visit Diagnoses Diagnosis Closed traumatic nondisplaced metaphysea l torus fracture of distal end of right radius - Primary Closed nondisplaced fracture of styloid process of right ulna with routine healing, subsequent encounter Right wrist fracture, with routine heali ng, subsequent encounter documented in this encounter
--- OUTSIDE RECORDS SUMMARY | 2022-06-02 10:06 | XMS_ITS | Encounter Summary ---
:2000 Author Organization [facility] Address [address] [place] [address] Care Team Providers Name Role Phone Brown Sung PA-C Primary Care Provider [phone] Reason for Visit Reason Comments RECHECK Encounter Details Date Type Department Care Team Description 02/15/2017 Office Visit [facility] Raghu, Georgia Michel, Cl osed traumatic Sports Medicine DO nondisplaced [facility] [place] [facility] [place] metaphyseal torus [address] [facility] fracture of distal [address] [id number] [facility] [place] [address] [address] (Primary Dx) [phone] [place], [place] [address] (Wo rk) Social History Tobacco Use Types Packs/Day Years Used Date Never Smoker Smokeless Tobacco: Never Used Alcohol Use Standard Drinks/Week Comments No 0 (1 standard drink = 0.6 oz pure alcoho l) Sex Assigned at Date Recorded Not on file documented as of this encounter Last Filed Vital Signs Vital Sign Reading Time Taken Comments Blood Pressure 120/80 02/15/2017 9:44 AM CDT Pulse - - Temperature - - Respiratory Rate - - Oxygen Saturation - - Inhaled Oxygen Concentration - - Weight 49.9 kg (110 lb) 02/15/2017 9:44 AM CDT Height 160 cm (5' 3) 02/15/2017 9:44 AM CDT Body Mass Index 19.49 02/15/2017 9:44 AM CDT Body Mass Index Percentile 48.19 % 02/15/2017 9:44 AM CD T Growth Chart: [facility] (Girls, 2-20 Years) documented in this encounter Patient Instructions Patient InstructionsMichael Ibrahim - 02/15/2017 9:40 AM CDT Thank you for allowing us to participate in your care today. Please find below your visit diagnosis and the plan going forward. 1. Closed traumatic nondisplaced metaphyseal torus fracture of distal end of right radius Activity modification as discussed Placed in hard cast to start transitioning back to hockey Try practice first and if functional ok to play - as long as league rules allow Letter for sports with above Follow up 2 weeks or sooner if needed. Call direct clinic number [[phone]] at any time with questions or concerns. Georgia Slater DO [facility] Website: [email or web address] Twitter: [email or web address] documented in this encounter Progress Notes Georgia Slater DO - 02/15/2017 9:40 AM CDT ASSESSMENT & PLAN ICD-10-CM 1. Closed traumatic nondisplaced metaphyseal torus fracture of distal end of right radius S52.521A Activity modification as discussed Placed in hard cast to start transitioning back to hockey Try practice first and if functional ok to play - as long as league rules allow Letter for sports with above Follow up 2 weeks or sooner if needed. Call direct clinic number [[phone]] at any time with questions or concerns. Instructed to call the office if the condition evolves or worsens. ----- SUBJECTIVE: Nikkie Broussard is a 16 year old female who is seen in follow-up for closed fracture of radius. They were last seen 02/01/2017 and is currently 2wks from [facility] . She is seen with her father today. Since their last visit reports 80% improvement. They indicate that their pain level is 0/10. They have tried exos splint. There is discrepancy between her father and her as far as how compliant she hasbeen with the splint. She reports wearing as directed. Patient's past medical, surgical, social, and family histories were reviewed today and no changes are noted. REVIEW OF SYSTEMS: Constitutional: NEGATIVE for fever, chills, change in weight Skin: NEGATIVE for worrisome rashes, moles or lesions GI/: NEGATIVE for bowel or bladder changes Neuro: NEGATIVE for weakness, dizziness or paresthesias OBJECTIVE: BP 120/80 Ht 5' 3 (1.6 m) Wt 110 lb (49.9 kg) BMI 19.49 kg/m2 General: healthy, alert and in no distress HEENT: no scleral icterus or conjunctival erythema Skin: no suspicious lesions or rash. No jaundice. CV: regular rhythm by palpation Resp: normal respiratory effort without conversational dyspnea Psych: normal mood and affect Gait: normal steady gait with appropriate coordination and balance Neuro: Motor strength as noted below MSK: RIGHT WRIST Inspection: No swelling over distal radius Palpation: Mildly tender about the distal radius. Nontender over ulna. Range of Motion: Near full and pain-free Independent visualization of the below image: RIGHT WRIST THREE VIEWS 02/15/2017 9:57 AM ?? HISTORY: Fracture follow-up. ?? COMPARISON: 02/01/2017. ?? IMPRESSION: There has been no change in position or alignment of the previously seen nondisplaced fracture of the distal radial metaphysis. There has been increase in sclerosis adjacent to the fracture line consistent with early stages of healing. Solid bone bridging has not yet occurred. No other change or abnormality is noted. ?? CHRISTOPHER ZARAGOZA MD Patient's conditions were thoroughly discussed during today's visit with greater than 50% of the visit spent counseling the patient with total time spent [id number] with the patient being 15 minutes. Georgia Slater DO [facility] documented in this encounter Nursing Notes Michael Ibrahim - 02/15/2017 9:40 AM CDT Chief Complaint Patient presents with ??? RECHECK Initial BP 120/80 Ht 5' 3 (1.6 m) Wt 110 lb (49.9 kg) BMI 19.49 kg/m2 Estimated body mass index is 19.49 kg/(m^2) as calculated from the following: Height as of this encounter: 5' 3 (1.6 m). Weight as of this encounter: 110 lb (49.9 kg). Medication Reconciliation: alison Ibrahim ATC documented in this encounter Plan of Treatment Not on filedocumented as of this encounter Procedures Procedure Name Priority Date/Time Associated Diagnosis Comme nts HC APPLY SHORT ARM Routine 03/05/2017 5:55 PM Closed traumatic CAST CDT nondisplaced metaphyseal torus fracture of distal end [...] noted. CHRISTOPHER ZARAGOZA MD [place] Slater DO [facility] ORDER SUZI documented in this encounter Visit Diagnoses Diagnosis Closed traumatic nondisplaced metaphysea l torus fracture of distal end of right radius - Primary Closed fracture of radius Closed fracture of unspecified part of r adius (alone) documented in this encounter Care Teams Patent Leather Sorter Relationship Specialty Start Date End Date Brown Sung, PCP - General Physician Seismographer - 12/26/15 05/19/21 BUD Medical documented as of this encounter
--- OUTSIDE RECORDS SUMMARY | 2022-06-02 10:06 | XMS_ITS | Encounter Summary ---
:2000 Author Organization [facility] Address [address] [place] [address]. [place] [address] Care Team Providers Name Role Phone Brown Sung PA-C Primary Care Provider [phone] Reason for Visit Reason Comments URI Encounter Details Date Type Department Care Team Description 08/09/2017 Office Visit [facility] Ming Mcconnell Mild inte rmittent childhood asthma without complication (Primary Dx); Clinic [place] MD Donavon Sore throat [address] [address] [place] [address] Social History Tobacco Use Types Packs/Day Years Used Date Never Smoker Smokeless Tobacco: Never Used Alcohol Use Standard Drinks/Week Comments No 0 (1 standard drink = 0.6 oz pure alcoho l) Sex Assigned at Date Recorded Not on file documented as of this encounter Last Filed Vital Signs Vital Sign Reading Time Taken Comments Blood Pressure 110/60 08/09/2017 2:58 PM CDT Pulse 68 08/09/2017 2:58 PM CDT Temperature 36.9 ??C (98.5 ??F) 08/09/2017 2:58 PM CDT Respiratory Rate - - Oxygen Saturation 98% 08/09/2017 2:58 PM CDT Inhaled Oxygen Concentration - - Weight 49.9 kg (110 lb) 08/09/2017 2:58 PM CDT Height 162.6 cm (5' 4) 08/09/2017 2:58 PM CDT Body Mass Index 18.88 08/09/2017 2:58 PM CDT Body Mass Index Percentile 35.68 % 08/09/2017 2:58 PM CD T Growth Chart: [facility] (Girls, 2-20 Years) documented in this encounter Progress Notes Ming Mcconnell MD - 08/09/2017 4:16 PM CDT SUBJECTIVE: Nikkie Broussard is a 17 year old female who presents to clinic today for the following health issues: Patient presents with: URI Patient here for follow up of asthma. Has had slight increase in wheezing recently over the past fewweeks. Denies respiratory illness. No fever. No chest pain. Has had mild intermittent asthma treatedjust with inhaler for occasional nebulizer when sick. Mild sore throat recently ROS: RESP: NEGATIVE for significant cough or SOB OBJECTIVE: BP 110/60 (BP Location: Right arm, Patient Position: Chair, Cuff Size: Adult Regular) Pulse 68 Temp 98.5 ??F (36.9 ??C) (Oral) Ht 5' 4 (1.626 m) Wt 110 lb (49.9 kg) LMP 07/25/2017 (Exact Date) SpO2 98% ? No BMI 18.88 kg/m2Body mass index is 18.88 kg/(m^2). GENERAL APPEARANCE: healthy, alert and no distress HENT: oral mucous membranes moist and oropharynx clear RESP: lungs clear to auscultation - no rales, rhonchi or wheezes ASSESSMENT/PLAN: 1. Mild intermittent childhood asthma without complication Refilled. - albuterol (2.5 MG/3ML) 0.083% neb solution; Take 1 vial (2.5 mg) by nebulization every 6 hours as needed for shortness of breath / dyspnea or wheezing Dispense: 25 vial; Refill: 0 - albuterol (PROAIR HFA) 108 (90 BASE) MCG/ACT Inhaler; Inhale 2 puffs into the lungs 4 times daily as needed for shortness of breath / dyspnea or wheezing Dispense: 1 Inhaler; Refill: 2 2. Sore throat - Strep, Rapid Screen - Beta strep group A culture Ming Mcconnell MD [facility] documented in this encounter Nursing Notes Karen Ferguson - 08/09/2017 2:45 PM CDT Chief Complaint Patient presents with ??? URI Initial BP 110/60 (BP Location: Right arm, Patient Position: Chair, Cuff Size: Adult Regular) Pulse 68 Temp 98.5 ??F (36.9 ??C) (Oral) Ht 5' 4 (1.626 m) Wt 110 lb (49.9 kg) LMP 07/25/2017 (Exact Date) SpO2 98% ? No BMI 18.88 kg/m2 Estimated body mass index is 18.88 kg/(m^2) as calculated from the following: Height as of this encounter: 5' 4 (1.626 m). Weight as of this encounter: 110 lb (49.9 kg). Medication Reconciliation: complete DORINA Maria documented in this encounter Plan of Treatment Not on filedocumented as of this encounter Procedures Procedure Name Priority Date/Time Associated Diagnosis Comme nts RAPID STREP SCREEN Routine 08/09/2017 3:44 PM Sore throat Res ults for this THROAT SWAB CDT procedure are i n the results section. BETA HEMOLYTIC Routine 08/09/2017 3:44 PM Sore throat Results for this STREP GROUP A CDT procedure are in CULTURE the results section. documented in this encounter Results Beta strep group A culture (08/09/2017 3:44 PM CDT) Component Value Ref Test Analysis Performed At [facility] Range Method Time Signature Specimen Throat [place] Description [facility] Culture Micro No beta 08/10/2017 [facility] hemolytic 3:[address] [facility] Streptococcus RAKE Group A isolated Specimen Anatomical Collection Method Collection Time Receive d Time (Source) Location / / Volume Laterality Specimen from 08/09/2017 3:44 PM 08/09/20 17 4:18 throat CDT PM CDT (specimen) Ming Mcconnell MD LAB - MICRO GENERAL ORDERABL ES Performing Organization Address City/State/ZIP Code Phon e Number [facility] [id number] [place] [address] Strep, Rapid Screen (08/09/2017 3:44 PM CDT) Component Value Ref Test Analysis Performed At [facility] gist Range Method Time Signature Specimen Throat [facility] Rapid Strep A NEGATIVE: No 08/09/2017 [place] Screen Group A 4:[address] [facility] streptococcal RAKE antigen detected by immunoassay, await culture report. Specimen Anatomical Collection Method Collection Time Receive d Time (Source) Location / / Volume Laterality Specimen from 08/09/2017 3:44 PM 08/09/20 17 3:47 throat CDT PM CDT (specimen) Ming Mcconnell MD LAB - MICRO GENERAL ORDERABL ES Performing Organization Address City/State/ZIP Code Phon e Number [facility] [id number] [place] [address] documented in this encounter Visit Diagnoses Diagnosis Mild intermittent childhood asthma witho ut complication - Primary Sore throat Acute pharyngitis documented in this encounter Care Teams Fabric Worker Leader Relationship Specialty Start Date End Date Brown Sung, PCP - General Physician Account Developer - 12/26/15 05/19/21 PAJossC Medical documented as of this encounter
--- OUTSIDE RECORDS SUMMARY | 2022-06-02 10:06 | XMS_ITS | Clinical Summary ---
:2002 Author Organization [facility] Address [address] [place] [address] Care Team Providers Name Role Phone Clinic, [facility] Primary Care Provider [phone] Allergies No known active allergies Medications Medication Sig Dispensed Refills Start Date End Date Status Naproxen Sodium 0 Acti ve (ALEVE PO)Indications: Right wrist pain, Other closed fracture of distal end of right radius, initial encounter albuterol (2.5 Take 1 vial (2.5 mg) 25 vial 0 08/09/2017 Active MG/3ML) 0.083% neb by nebulization solutionIndications: every 6 hours as Mild intermittent needed for shortness childhood asthma of breath / dyspnea without complication or wheezing Additional Information Patient not taking. Reported on 10/12/2017 albuterol (PROAIR HFA) 108 (90 Inhale 2 puffs into 1 Inhaler 2 08/09/2017 Active BASE) MCG/ACT the lungs 4 times InhalerIndications: Mild daily as needed for intermittent childhood asthma shortness of breath / without complication dyspnea or wheezing Additional Information Patient not taking. Reported on 10/12/2017 Active Problems Problem Noted Date Hip pain, right 10/15/2017 Childhood asthma Resolved Problems Problem Noted Date Resolved Date Closed nondisplaced fracture of styloid process of right 10/17/2017 ulna Closed traumatic nondisplaced metaphyseal torus fracture of 11/19/2015 10/17/2017 distal end of right radius Wheezing 05/12/2012 06/28/2014 Immunizations Name Administration Dates Next Due DTAP (<7y) 08/18/2007, 08/26/2004, 04/18/2003, 01/09/2003, 2002 HEPA 06/28/2014, 05/12/2012 11/12/2012 HPV 07/29/2016, 06/28/2014 HepB 08/24/2003, 2002, 2002 Hib (PRP-T) 08/24/2003, 04/18/2003, 01/09/2003, 2002 Influenza (IIV3) PF 2012, 08/18/2007 Influenza Vaccine IM > 6 months 07/29/2016 Valent IIV4 (Alfuria,Fluzone) MMR 08/18/2007, 12/10/2003 Meningococcal (Menactra??) 06/28/2014 Pneumococcal (PCV 7) 12/10/2003, 08/24/2003 Poliovirus, inactivated (IPV) 08/18/2007, 04/18/2003, 2002, 2002 TDAP Vaccine (Boostrix) 06/28/2014 Varicella 08/18/2007, 08/24/2003 Family History Medical History Relation Comments Family History Negative Brother 1 Family History Negative Father Family History Negative Mother Family History Negative Sister 1 C.A.D. No family hx of Cerebrovascular Disease No family hx of Diabetes No family hx of Relation Status Comments Brother Father Alive Mother Alive Sister Social History Tobacco Use Types Packs/Day Years Used Date Never Smoker Smokeless Tobacco: Never Used Alcohol Use Standard Drinks/Week Comments No 0 (1 standard drink = 0.6 oz pure alcoho l) Sex Assigned at Date Recorded Not on file Last Filed Vital Signs Vital Sign Reading Time Taken Comments Blood Pressure 107/54 05/21/2021 1:00 AM CDT Pulse 82 05/21/2021 2:30 AM CDT Temperature 36.8 ??C (98.2 ??F) 05/20/2021 7:11 PM CDT Respiratory Rate 20 05/21/2021 1:00 AM CDT Oxygen Saturation 95% 05/21/2021 2:45 AM CDT Inhaled Oxygen Concentration - - Weight 50.3 kg (111 lb) 10/16/2017 9:46 AM DESIGN TECHNOLOGY TEACHER Height 162.6 cm (5' 4) 10/16/2017 9:46 AM DESIGN TECHNOLOGY TEACHER Body Mass Index 19.05 10/16/2017 9:46 AM DESIGN TECHNOLOGY TEACHER Body Mass Index Percentile 36.71 % 10/16/2017 9:46 AM CS T Growth Chart: CDC (Girls, 2-20 Years) Plan of Treatment Health Maintenance Due Date Last Done Comments ADVANCE CARE PLANNING 2002 ANNUAL REVIEW OF HM ORDERS 2002 ASTHMA ACTION PLAN 2002 ASTHMA CONTROL TEST 2002 COVID-19 Vaccine (#1) 02/15/2003 PREVENTIVE CARE VISIT 07/29/2017 07/29/2016, 06/28/2014, 05/12/2012 HIV SCREENING 2017 HEPATITIS C SCREENING 2020 PHQ-2 (once per calendar 10/25/2021 year) INFLUENZA VACCINE (#1) 2022 07/29/2016, 07/29/2016, 2012, Additional history exists DTAP/TDAP/TD IMMUNIZATION 06/28/2024 06/28/2014, 08/18/2007 , (7 - Td or Tdap) 08/26/2004, Additional history exists HEPATITIS B IMMUNIZATION Completed 08/24/2003, 08/24/2003, 2002, Additional history exists HIB IMMUNIZATION Completed 08/24/2003, 04/18/2003, 01/09/2003, Additional history exists Pneumococcal Vaccine: Aged Out 12/10/2003, 08/24/2003 No longer eligible Pediatrics (0 to 5 Years) based on patient's age and At-Risk Patients (6 to to co mplete this topic 64 Years) IPV IMMUNIZATION Completed 08/18/2007, 04/18/2003, 01/09/2003, Additional history exists VARICELLA IMMUNIZATION Completed 08/18/2007, 08/24/2003 MENINGITIS IMMUNIZATION Aged Out 06/28/2014 No longe r eligible based on patient 's age to complete this topic HPV IMMUNIZATION Completed 07/29/2016, 07/29/2016, 06/28/2014, Additional history exists Insurance Payer Benefit Plan / Subscriber ID Effective Dates Phone Addre ss Type Group BCBS BCBS OF [place] [id number] 2020-Braydon [phone] [address] [address] Indemnity t 0 [place] [address] Care Teams Transit Clerk Relationship Specialty Start Date End Date Clinic, [facility] PCP - General 05/20/21 [id number] [place] [address]
--- OUTSIDE RECORDS SUMMARY | 2022-06-02 10:07 | XMS_ITS | Encounter Summary ---
:2002 Author Organization [facility] Address [address] [place] [address] Care Team Providers Name Role Phone Renetta Kramer MD Primary Care Provider Reason for Referral Referral not Required - Closed Specialty Diagnoses / Procedures Referred By Contact Refer red To Contact Diagnoses Wheezing Renetta Kramer MD [facility] [address] [address] [place] [address] Referral ID Status Reason Start Date Expiration Date Visits Requ ested Visits Authorized [id number] Closed 05/12/2012 11/08/2012 1 1 Reason for Visit Reason Comments Physical annual px and for camp Encounter Details Date Type Department Care Team Description 05/12/2012 Office Visit [facility] Renetta Kramer MD Routine infant or child health check (Pr imary Dx); Clinic Critical access hospital Wheezing; [address] [facility] Vacc for viral hepatitis [place], [place] [address] [facility] [phone] [place] [address] Social History Tobacco Use Types Packs/Day Years Used Date Never Smoker Smokeless Tobacco: Never Used Alcohol Use Standard Drinks/Week Comments No 0 (1 standard drink = 0.6 oz pure alcoho l) Sex Assigned at Date Recorded Not on file documented as of this encounter Last Filed Vital Signs Vital Sign Reading Time Taken Comments Blood Pressure 89/62 05/12/2012 11:11 AM CDT Pulse 70 05/12/2012 11:11 AM CDT Temperature 36.9 ??C (98.5 ??F) 05/12/2012 11:11 AM CDT Respiratory Rate - - Oxygen Saturation 97% 05/12/2012 11:11 AM CDT Inhaled Oxygen Concentration - - Weight 29.7 kg (65 lb 8 oz) 05/12/2012 11:11 AM CDT Height 134.6 cm (4' 5) 05/12/2012 11:11 AM CDT Body Mass Index 16.39 05/12/2012 11:11 AM CDT Body Mass Index Percentile 44.61 % 05/12/2012 11:11 AM C DT Growth Chart: [facility] (Girls, 2-20 Years) documented in this encounter Patient Instructions Patient InstructionsWRenetta mccauley MD - 05/12/2012 11:34 AM CDT Please add flovent daily, rinse mouth after using this Use albuterol as needed for dry cough or wheezing or shortness of breath Use albuterol half hour prior to activity We gave you hepatitis A vaccine today Use prednisone with full stomach only with worsening of breathing and wheezing issues Follow up in 2 weeks or sooner with any issues Thanks Renetta Kramer MD documented in this encounter Progress Notes Renetta Kramer MD - 05/12/2012 11:14 AM CDT Nikkie Broussard is a 11 year old female here for a routine health maintenance visit, accompanied by her father, sister and brother. QUESTIONS/CONCERNS: cough and breathing problem FAMILY/ SOCIAL HISTORY Child lives with: mother, father, sister and brother Recent family changes/social stressors: none noted Family History: No changes since last physical Language(s) spoken at home: Czech ENVIRONMENTAL RISK ASSESSMENT Is your child around anyone who smokes? NO Booster seat/ seat belt? YES Bike/ sport helmet? YES TB exposure? NO Pets in the home? YES dog Guns/firearms in the home? NO Water source: city water CHICKEN POX HISTORY: Previously vaccinated with 2 doses of Varivax DEVELOPMENTAL/BEHAVIORAL SCREENING FORM: Form not used VISION Right eye: 20/200 Left eye: 20/200 Both eyes: 20/200 Pt wears glasses but not on exam HEARING None at this time REQUIRED VITAL SIGNS COMPLETED: yes BP 89/62 Pulse 70 Temp(Src) 98.5 ??F (36.9 ??C) (Oral) Ht 4' 5 (1.346 m) Wt 65 lb 8 oz (29.711 kg) BMI 16.39 kg/m2 SpO2 97% 37.84%ile based on CDC 2-20 Years [id number] data. 35.74%ile based on CDC 2-20 Years [id number] data. 44.78%ile based on CDC 2-20 Years BMI-for-age data. 13.4% systolic and 55.6% diastolic of BP percentile by age, sex, and height. Staff signature: Ashish Doyle SMA HEALTH HISTORY SINCE LAST VISIT No surgery, major illness or injury since last physical exam Cough and wheezing Recently worse with jumping on trampoline and skating-getting worse-started couple days ago Dad thinks in past, same thing happened, going in cold air , makes this worse Immunization History Administered Date(s) Administered ? ? DTAP (<7y) 2002, 01/09/2003, 04/18/2003, 08/26/2004, 08/18/2007 ??? HIB 2002, 01/09/2003, 04/18/2003, 08/24/2003 ??? Hepatitis B 2002, 2002, 08/24/2003 ??? IPV 2002, 01/09/2003, 04/18/2003, 08/18/2007 ??? Influenza 08/18/2007 ??? MMR 12/10/2003, 08/18/2007 ??? Pneumococcal (PCV 7) 08/24/2003, 12/10/2003 ??? Varicella 08/24/2003, 08/18/2007 No Known Allergies DAILY ACTIVITIES NUTRITION: good appetite, eats variety of foods, dairy/ calcium: yogurt, juice, water city water, meat, fruits and vegetables SLEEP No concerns, sleeps well through night ELIMINATION Normal bowel movements and Normal urination EXERCISE/ RECREATION: Age appropriate activities ACTIVITIES: music (piano) TV/ MEDIA: >2 hours/ day EDUCATION Concerns: no School: Grade: 4th MENTAL HEALTH Concerns: no VISION: For details see above, abnormal, has glasses, not wearing today HEARING: For details see above, normal ROS GENERAL: See health history, nutrition and daily activities SKIN: No rash, hives or significant lesions HEENT: Hearing/vision: see above. No eye redness/discharge, nasal congestion, sneezing, snoring RESP: No cough, wheezing, SOB CV: No cyanosis, palpitations, syncope GI: See nutrition and elimination : See elimination MS: No swelling, arthralgia, weakness, gait problem NEURO: No headaches PSYCH: See development and behavior, or mental health EXAM GENERAL: Active, alert, in no acute distress. [...] No adenopathy LUNGS: Clear. No rales, rhonchi, positive for expiratory wheezing HEART: Regular rhythm. Normal S1/S2. No murmurs. Normal pulses. ABDOMEN: Soft, non-tender, not distended, no masses or hepatosplenomegaly. Bowel sounds normal. NEUROLOGIC: No focal findings. Cranial nerves grossly intact: DTR's normal. Normal gait, strength and tone BACK: Spine is straight, no scoliosis. EXTREMITIES: Full range of motion, no deformitiesGU-F: Normal female external genitalia, Acrlos stage 1. BREASTS: Carlos stage 1. No abnormalities. ANTICIPATORY GUIDANCE The following topics were discussed: SOCIAL/ FAMILY: Praise for positive activities Encourage reading Limit / supervise TV/ media Chores/ expectations Limits and consequences NUTRITION: Healthy snacks Family meals HEALTH/ SAFETY: Physical activity Regular dental care Booster seat/ Seat belts Swim/ water safety ASSESSMENT 1. Well child with normal growth and development Routine infant or child health check (primary encounter diagnosis) Comment: Plan: Wheezing Comment: Plan: fluticasone (FLOVENT HFA) 44 MCG/ACT inhaler, albuterol (PROAIR HFA) 108 (90 BASE) MCG/ACT inhaler, PULMONARY MEDICINE REFERRAL, albuterol (2.5 MG/3ML) 0.083% nebulizer solution, prednisoLONE (PRELONE) 15 MG/5ML syrup We discussed possible etiology Patient has a dog at home for 2 years-and her symptoms started after 1.5 years of having dog We discussed possible dye allergy vs asthma Patient will use Flovent daily Use albuterol as needed and prior to activity We discussed the need to do a chest x-ray or using antibiotics Patient is traveling to [facility] for family vacation-patient will have on hand prednisone-with directions to use if needed with worsening I would also like her to see a lung doctor for consult Referral information given PLAN 44.78%ile based on CDC 2-20 Years BMI-for-age data. Patient not obese . Immunizations See orders in EpicCare. Counseling provided regarding the benefits and risks related to the vaccinesordered today. I reviewed the signs and symptoms of adverse effects and when to seek medical care ifthey should arise. See other orders in EpicCare Referrals/Ongoing Specialty care: No Dental visit recommended: Yes RTC: 1 year RHM visit documented in this encounter Nursing Notes 05/12/2012 11:00 AM CDT >> MARQUITA EDMONDS [facility] May 12, 2012 12:25 PM MNVFC does apply for the following reason: Insured: Has insurance that covers the cost of all vaccines (Not [place]VFC elligible because insurance already covers all vaccines) >> ASHISH DOYLE [facility] May 12, 2012 11:22 AM Patient presents with: Physical - annual px and for camp Initial BP 89/62 Pulse 70 Temp(Src) 98.5 ??F (36.9 ??C) (Oral) Ht 4' 5 (1.346 m) Wt 65 lb 8oz (29.711 kg) BMI 16.39 kg/m2 SpO2 97% Estimated Body mass index is 16.39 kg/(m^2) as calculated from the following: Height as of this encounter: 4' 5(1.346 m). Weight as of this encounter: 65 lb 8 oz(29.711 kg).. BP completed using cuff size: pediatric Ashish Doyle SMA documented in this encounter Plan of Treatment Not on filedocumented as of this encounter Procedures Procedure Name Priority Date/Time Associated Diagnosis Comme nts PULMONARY MEDICINE ADULT REFERRAL Routine 2012 Wheezin g documented in this encounter Results PULMONARY MEDICINE REFERRAL (2012) Narrative This result has an attachment that is no t available. Renetta Kramer MD REFERRAL documented in this encounter Visit Diagnoses Diagnosis Routine infant or child health check - P rimary Wheezing Need for prophylactic vaccination and in oculation against viral hepatitis documented in this encounter Care Teams Curator Medical Museum Relationship Specialty Start Date End Date Renetta Kramer MD PCP - General Family Practice 04/21/12 06/10/[address] [address] documented as of this encounter
--- OUTSIDE RECORDS SUMMARY | 2022-06-02 10:07 | XMS_ITS | Encounter Summary ---
:2002 Author Organization [facility] Address [address] [place] [address] Care Team Providers Name Role Phone Renetta Kramer MD Primary Care Provider Reason for Visit Reason Comments Cough dry cough, BREWSTER, tight chest, nausea x 3 days, pt has taken a varity of OTC and nebulizer with some relief Encounter Details Date Type Department Care Team Description 04/21/2012 Office Visit [facility] Renetta Kramer MD Cough (Primary Dx) [place] [address] [phone] (Wo rk) Social History Tobacco Use Types Packs/Day Years Used Date Never Smoker Smokeless Tobacco: Never Used Alcohol Use Standard Drinks/Week Comments No 0 (1 standard drink = 0.6 oz pure alcoho l) Sex Assigned at Date Recorded Not on file documented as of this encounter Last Filed Vital Signs Vital Sign Reading Time Taken Comments Blood Pressure 84/56 04/21/2012 11:23 AM CDT Pulse 100 04/21/2012 11:23 AM CDT Temperature 36.9 ??C (98.5 ??F) 04/21/2012 11:23 AM CDT Respiratory Rate - - Oxygen Saturation 98% 04/21/2012 11:23 AM CDT Inhaled Oxygen Concentration - - Weight 29.4 kg (64 lb 14.4 oz) 04/21/2012 11:23 AM CDT Height 137.2 cm (4' 6) 04/21/2012 11:23 AM CDT Body Mass Index 15.65 04/21/2012 11:23 AM CDT Body Mass Index Percentile 30.95 % 04/21/2012 11:23 AM C DT Growth Chart: [facility] (Girls, 2-20 Years) documented in this encounter Patient Instructions Patient InstructionsRenetta Kramer MD - 04/21/2012 12:33 PM CDT We did chest x-ray for you We did testing for whooping cough testing for you Use antibiotics as given Use oral steroids as given We did breathing testing for you today Use albuterol as needed for dry coughing or wheezing Please update me tomorrow how she is doing Thanks Renetta Kramer MD documented in this encounter Progress Notes Renetta Kramer MD - 04/21/2012 11:34 AM CDT SUBJECTIVE: This is a 11 year old female with dad Wednesday night with slight cough Since then, getting worse Yesterday, progressively worse Wednesday night, used neb-used once and 3 times Wednesday and once this morning Using albuterol helps No prior hx of asthma but per dad , often similar issues No prior hx of allergies Not seen pul or marketing analytics specialist Cough is dry, no fevers, no chills, hard to breath with coughing and making noises No sick contacts Hx of similar issues in past 11/2011 Not sure what happened No pneumonia New pt to us, prior cares at outside clinic No prior resp related hospitalizations Ros-see hpi otherwise neg Current Outpatient Prescriptions Medication Sig ??? NO ACTIVE MEDICATIONS ??? azithromycin (ZITHROMAX) 200 MG/5ML suspension 300 mg first day then 150 mg daily for 4 days ??? albuterol (2.5 MG/3ML) 0.083% nebulizer solution Take 3 mLs by nebulization every 4 hours as needed for shortness of breath / dyspnea. ??? dexamethasone 0.5 MG/5ML solution 1.8 mg per day for one day No Known Allergies History reviewed. No pertinent past medical history. History reviewed. No pertinent past surgical history. Ros -see hpi otherwise rest is negative OBJECTIVE: Filed Vitals: 04/21/12 1123 BP: 84/56 Pulse: 100 Temp: 98.5 ??F (36.9 ??C) TempSrc: Oral Height: 4' 6 (1.372 m) Weight: 64 lb 14.4 oz (29.438 kg) SpO2: 98% EXAM: Constitutional: healthy, alert, mild distress and moderate distress with barky emerson cough Cardiovascular: negative, PMI normal. No lifts, heaves, or thrills. RRR. No murmurs, clicks gallops or rub Respiratory: negative, Percussion normal. Good diaphragmatic excursion. Lungs clear Neck: Neck supple. No adenopathy. ENT: ENT exam normal, no neck nodes or sinus tenderness ASSESSMENT: This is a 11 year old female with Cough (primary encounter diagnosis) Comment: Plan: X-ray Chest 2 vws*, Bordetella pert parapert DNA pcr, azithromycin (ZITHROMAX) 200 MG/5ML suspension, albuterol (2.5 MG/3ML) 0.083% nebulizer solution, dexamethasone 0.5 MG/5ML solution ddx considered With her hx and exam as above Above done Pt will be checked for above and with pending labs, use meds as given advised strongly with worsening to er if indicated and recheck here Also at next follow up visit, if needed, consider pul evaluation Pt had spirometry done today in clinic, as well Follow up in one week with update tomorrow or sooner if no improvement and/or still having problems and/or any worsening Recommend HCM if not uptodate. Renetta Kramer MD Patient Instructions We did chest x-ray for you We did testing for whooping cough testing for you Use antibiotics as given Use oral steroids as given We did breathing testing for you today Use albuterol as needed for dry coughing or wheezing Please update me tomorrow how she is doing Thanks Renetta Kramer MD documented in this encounter Nursing Notes 04/21/2012 11:15 AM CDT >> MADELINE OVALLE [facility] Apr 21, 2012 2:52 PM Pharmacy calling and said they could not get the Dexamethasone at their pharmacy I recommended they try another pharmacy. Kramer agreed this is the med she would like pt on. >> MARQUITA WILKS [facility] Apr 21, 2012 11:26 AM Patient presents with: Cough - dry cough, BREWSTER, tight chest, nausea x 3 days, pt has taken a varity of OTC and nebulizer with some relief Initial BP 84/56 Pulse 100 Temp(Src) 98.5 ??F (36.9 ??C) (Oral) Ht 4' 6 (1.372 m) Wt 64 lb 14.4 oz (29.438 kg) BMI 15.65 kg/m2 SpO2 98% Estimated Body mass index is 15.65 kg/(m^2) as calculated from the following: Height as of this encounter: 4' 6(1.372 m). Weight as of this encounter: 64 lb 14.4 oz(29.438 kg).. BP completed using cuff size: regular Marquita Wilks SHIP WASHER documented in this encounter Plan of Treatment Not on filedocumented as of this encounter Procedures Procedure Name Priority Date/Time Associated Comments Diagnosis XR CHEST 2 VW Routine 04/21/2012 12:32 PM Cough Results for this CDT procedure are i n the results section. BORDETELLA Routine 04/21/2012 12:06 PM Cough Results for this PER/PARAPER PCR CDT procedure ar e in the results section. documented in this encounter Results X-ray Chest 2 vws* (04/21/2012 12:32 PM CDT) Anatomical Region Laterality Modality Chest Other Specimen (Source) Anatomical Collection Method Collection Time Re ceived Time Location / / Volume Laterality 04/21/2012 12:32 PM CDT Impressions 04/22/2012 8:41 AM CDT CHEST TWO VIEWS April 21, 2012 12:32:00 P M HISTORY: Cough. COMPARISON: None. FINDINGS: No airspace consolidation, ple ural effusion or pneumothorax. Normal heart size. IMPRESSION: No acute cardiopulmonary abn ormality. Renetta Kramer MD IMG DIAGNOSTIC IMAGING ORDER SUZI Bordetella pert parapert DNA pcr (04/21/2012 12:06 PM CDT) Component Value Ref Test Analysis Performed At [facility] Range Method Time Signature Specimen Nasopharyngeal [place] Bordetella Negative for B. pertussis and B. parapertussis by PCR [facility] FUM Per/Paraper MICROBIOLOGY PCR This test was developed and its performance characteristics determined by the Microbiology Laboratory at [place], [place]. The PCR te st has proven to be more sensitive than culture and highly specific. ??A false positive for B. pertussis may oc cur in samples containing B. holmesii DNA. A false positive for B. parapertussis may occur in samples containing B. bronchiseptica DNA. Both B. holmesii and B. bronchiseptica rarely cause disease in humans. ??A negative res ult does not rule out the presence of B. pertussis or B. parapertussis DNA in concentrations below detection le dimitri of the assay. Nasopharyngeal swabs are the preferred specimen types. Analyte Specific Reagents (ASRs) are used in [facility] laboratory tests necessary for standard medical care and generally do not require U.S. Food and Drug Administration approval. [facility] FDA has determined that such clearance or approval is not necessary. This test is used for clinical purp oses. It should not be regarded as investigational or for research. This laboratory is certified under the Clinical Laboratory Improvement Amendments of 1988 (CLIA-88) as qualifi ed to perform high complexity clinical laboratory testing. Specimen (Source) Anatomical Collection Method Collection Time Re ceived Time Location / / Volume Laterality Specimen from 04/21/2012 12:06 04/21/2012 nasopharyngeal PM CDT 12:07 PM CDT structure (specimen) Renetta Kramer MD LAB - MICRO GENERAL ORDERABL ES Performing Organization Address City/State/ZIP Code Phon e Number [address] [address] [facility] MICROBIOLOGY documented in this encounter Visit Diagnoses Diagnosis Cough - Primary documented in this encounter Care Teams Curriculum Development Manager Relationship Specialty Start Date End Date Renetta Kramer MD PCP - General Family Practice 04/21/12 06/10/[address] [address] documented as of this encounter
--- OUTSIDE RECORDS SUMMARY | 2022-06-02 10:07 | XMS_ITS | Encounter Summary ---
:2000 Author Organization [facility] Address [address] [place] [id number] Care Team Providers Name Role Phone Renetta Kramer MD Primary Care Provider Reason for Visit Reason Comments Musculoskeletal Problem right wrist pain x8 days ago Encounter Details Date Type Department Care Team Description 05/31/2012 Office Visit [facility] Theo Fan Wrist pain (Primary Clinic [place] MD Rafael Dx) [address] [place], [place] CLINIC [id number] [facility] [phone] [place], [place] [id number] (Wo rk) Social History Tobacco Use Types Packs/Day Years Used Date Never Smoker Smokeless Tobacco: Never Used Alcohol Use Standard Drinks/Week Comments No 0 (1 standard drink = 0.6 oz pure alcoho l) Sex Assigned at Date Recorded Not on file documented as of this encounter Last Filed Vital Signs Vital Sign Reading Time Taken Comments Blood Pressure - - Pulse 66 05/31/2012 5:13 PM CDT Temperature 37.1 ??C (98.8 ??F) 05/31/2012 5:13 PM CDT Respiratory Rate 16 05/31/2012 5:13 PM CDT Oxygen Saturation - - Inhaled Oxygen Concentration - - Weight 29.9 kg (66 lb) 05/31/2012 5:13 PM CDT Height 134.6 cm (4' 5) 05/31/2012 5:13 PM CDT Body Mass Index 16.52 05/31/2012 5:13 PM CDT Body Mass Index Percentile 46.48 % 05/31/2012 5:13 PM CD T Growth Chart: [facility] (Girls, 2-20 Years) documented in this encounter Progress Notes Theo Fan MD - 06/09/2012 1:28 PM CDT Nikkie Broussard is a 11 year old female who presents for evaluation of: 1. Wrist pain - patient accidentally hit the right wrist while playing 8 days ago. She does not remember the exact mechanism of injury. The wrist did have swelling and decreased range of motion, however, over the past few days it does seem to be improving. No weakness, numbness, tingling in the hand. No history of previous injury to the wrist. Problems list, allergies, social and family history, and past medical history, are all reviewed and updated in [facility]. Current Outpatient Prescriptions Medication Sig ??? fluticasone (FLOVENT HFA) 44 MCG/ACT inhaler Inhale 1 puff into the lungs 2 times daily. 2 puffs ??? albuterol (PROAIR HFA) 108 (90 BASE) MCG/ACT inhaler Inhale 2 puffs into the lungs 4 times dailyas needed for shortness of breath / dyspnea. ??? albuterol (2.5 MG/3ML) 0.083% nebulizer solution Take 3 mLs by nebulization every 6 hours as needed for shortness of breath / dyspnea. OBJECTIVE: Pulse 66 Temp(Src) 98.8 ??F (37.1 ??C) (Oral) Resp 16 Ht 4' 5 (1.346 m) Wt 66 lb (29.937 kg) BMI 16.52 kg/m2 EXTREMITIES: Tenderness on the distal radius/ulna. Minimal swelling and no deformity. No echymosis. Slightly decreased ROM compared to left. Wrist exam - right normal, slightly decreased range of motion, minimal swelling compared to left. Slight tenderness on dorsal aspect of wrist. Normal radial pulse. Negative Phalen/Tinel signs. Xray: negative Assessment/Plan: Wrist pain (primary encounter diagnosis) Comment: Plan: X-ray rt Wrist G/E 3 vws* Wrist sprain, without evidence of bony injury. She does seem to be improving on her own, I recommended relative rest and followup if she does not have complete improvement over the next few weeks. documented in this encounter Nursing Notes 05/31/2012 5:00 PM CDT >> VILLA Mathis May 31, 2012 5:15 PM Patient presents with: Musculoskeletal Problem - right wrist pain x8 days ago InitialPulse 66 Temp(Src) 98.8 ??F (37.1 ??C) (Oral) Resp 16 Ht 4' 5 (1.346 m) Wt 66 lb (29.937 kg) BMI 16.52 kg/m2 Estimated Body mass index is 16.52 kg/(m^2) as calculated from the following: Height as of this encounter: 4' 5(1.346 m). Weight as of this encounter: 66 lb(29.937 kg).. BP completed using cuff size (507) Villa Medina MA documented in this encounter Plan of Treatment Not on filedocumented as of this encounter Procedures Procedure Name Priority Date/Time Associated Diagnosis Comme nts XR WRIST RT G/E 3 Routine 05/31/2012 5:31 PM Wrist pain Resu lts for this VW CDT procedure are i n the results section. documented in this encounter Results X-ray rt Wrist G/E 3 vws* (05/31/2012 5:31 PM CDT) Anatomical Region Laterality Modality Right Wrist Right Other Specimen (Source) Anatomical Collection Method Collection Time Re ceived Time Location / / Volume Laterality 05/31/2012 5:31 PM CDT Impressions 06/01/2012 7:46 AM CDT WRIST G/E 3 VIEWS RIGHT * ??May 31, 2012 5:31:00 PM HISTORY: ??Pain. COMPARISON: ??None. IMPRESSION: ??Negative. Theo Fan MD IMG DIAGNOSTIC IMAGING ORDER SUZI documented in this encounter Visit Diagnoses Diagnosis Wrist pain - Primary Pain in joint, forearm documented in this encounter Care Teams Administrative Manager Relationship Specialty Start Date End Date Renetta Kramer MD PCP - General Family Practice 04/21/12 06/10/[address] [address] documented as of this encounter
--- OUTSIDE RECORDS SUMMARY | 2022-06-02 10:07 | XMS_ITS | Encounter Summary ---
:2000 Author Organization [facility] Address [address] [place] [id number] Care Team Providers Name Role Phone Renetta Kramer MD Primary Care Provider Encounter Details Date Type Department Care Team Description 04/21/2012 Orders Only [facility] Carol Kramer MD [address] [phone] [place] [address] (Wo rk) Social History Tobacco [...] Name Priority Date/Time Associated Diagnosis Comme nts BREATHING CAPACITY TEST Routine 04/21/2012 documented in this encounter Results BREATHING CAPACITY TEST (04/21/2012) P athologist Signature FEV-1 FVC FEV1/FVC FEF 25/75 Narrative This result has an attachment that is no t available. Renetta Kramer MD PROCEDURES documented in this encounter Visit Diagnoses Not on filedocumented in this encounter Care Teams Cafe Team Member Relationship Specialty Start Date End Date Renetta Kramer MD PCP - General Family Practice 04/21/12 06/10/[address] [address] documented as of this encounter
--- OUTSIDE RECORDS SUMMARY | 2022-06-02 10:07 | XMS_ITS | Encounter Summary ---
:2000 Author Organization [facility] Address [address] [place] [address] Care Team Providers Name Role Phone Renetta Kramer MD Primary Care Provider Reason for Visit Reason Onset Date Comments Medication Request 08/01/2012 equivelent of flutic asone (FLOVENT HFA) 44 MCG/ACT inhaler Encounter Details Date Type Department Care Team Description 08/01/2012 Telephone [facility] Renetta Kramer MD Medication Request Clinic [facility] [place] [address] [facility] fluticasone (FLOVENT [place], [place] [address] HFA) 44 MCG/ACT [id number] [place] [address] inhaler) [phone] (Wo rk) Social History Tobacco Use Types Packs/Day Years Used Date Never Smoker Smokeless Tobacco: Never Used Alcohol Use Standard Drinks/Week Comments No 0 (1 standard drink = 0.6 oz pure alcoho l) Sex Assigned at Date Recorded Not on file documented as of this encounter Miscellaneous Notes Telephone Encounter - Lilia Rice - 08/01/2012 12:44 PM CDT Pt will be contacting pharm today Lilia Rice RN Telephone Encounter - Renetta Kramer MD - 08/01/2012 12:36 PM CDT Refill done for pt Please let pt know-pt should follow up with pul and here if needed Thanks Renetta Kramer MD Telephone Encounter - DwayneLilia - 08/01/2012 10:11 AM CDT Father calling states that he needs to switch to mail order but insurance will not cover Flovent at local pharmacy we have fill it twice and not it's 120$ He is asking for an RX just this one time while waiting for the mail order to come through for a different inhaled steroid. He will be calling today to set up appointment with clinical transformation specialist as he has not done that yet. Please advise as to 1 X fill on inhaled steroid. RX for mail order sent as below. Lilia Rice RN RF request for Flovent Oral Inhaler Ok per RN protocol x 3 mos. Spoke with Dad has not followed up pulmonology, will call today. LYNDSEY 05/31/12 Lilia Rice RN BP Readings from Last 1 Encounters: 05/12/12 AAP date: Wheezing -Asthma Action Plan (AAP) on file (if not clear refer to PCP or make appt) -Encounter/OV: every 12 months -Max RF's until next OV related to diagnosis: 12 months Category: Asthma & COPD/Oral Steroid Inhalers RF request for Proair Oral Inhaler Ok per RN protocol x 3 mos. Lilia Rice RN BP Readings from Last 1 Encounters: 05/12/12 AAP date: wheezing -Asthma Action Plan (AAP) on file -If >6 canisters requested per yr, refer to PCP (approx 200 puffs/canister) -Encounter/OV: every 12 months -Max RF's until next OV related to diagnosis: 12months -If AAP not clear, refer to PCP or ask pt to make OV Category: Asthma & COPD/Bronchodialtor Inhalers Telephone Encounter - Geneva Cheung - 08/01/2012 9:49 AM CDT Name of caller: Teresa Relationship to pt: father Reason for call: Patient's dad requesting a equivalent medication to fluticasone (FLOVENT HFA) 44 MCG/ACT inhaler. Dad is changing to a 90 day pharmacy but needs one inhaler sent to [facility] while waiting. Insurance will not cover the same medication twice in short duration. Patient states we should have received request from [employer] as well for change in pharmacy. Best phone number to reach pt at is: [phone] Ok to leave a message with medical info? Pharmacy information:[facility] Geneva Cheung [employer]er documented in this encounter Plan of Treatment Not on filedocumented as of this encounter Visit Diagnoses Diagnosis Wheezing - Primary documented in this encounter Care Teams Ice Cream Chef Relationship Specialty Start Date End Date Renetta Kramer MD PCP - General Family Practice 04/21/12 06/10/[address] [address] documented as of this encounter
== END 2022-05-05 15:57 | disposition home or self-care (01) ==
PROVIDERS: Visit Provider Nurse Practitioner Family
DX: F32.A Depression, unspecified (principal); F41.9 Anxiety disorder, unspecified
CPT/HCPCS: 80053; 82652; 84443

== ENCOUNTER 2023-01-07 15:15 | Outpatient (CLI) | payer BC, SELFPAY ==
[2023-01-08 00:04] LABS: Chlamydia DNA Amplified* NOT DETECTED (No Detected); GC DNA Amplified* NOT DETECTED (No Detected)
== END 2023-01-07 15:16 | disposition home or self-care (01) ==
PROVIDERS: Visit Provider Registered Nurse
DX: Z11.3 Encounter for screening for infections with a predominantly sexual mode of transmission (principal)
CPT/HCPCS: 87491; 87591